=== PATIENT | female | born 1950 | race African-American/Black ===

== ENCOUNTER 2019-07-28 13:37 | Outpatient (CLI) | payer MEDICARE, MEDICAID, SELFPAY ==
--- NOTE | ~2019-07-28 | CT_ITS ---
EXAMINATION: CT lung screening DATE: 07/28/2019 14:20 INDICATION: Tobacco dependence TECHNIQUE: Computed tomography (CT) of the chest was performed without intravenous contrast. The dose -length product was 57.75 mGy-cm. Automated exposure control and iterative reconstruction technique w ere employed. COMPARISON: None FINDINGS: There is mild atherosclerosis and ectasia of the ascending thoracic aorta measuring 3.6 cm AP dimension. There is atherosclerosis of the coronary arteries. Heart size is normal. No significant pleural or pericardial effusion. No thoracic lymphadenopathy. Thyroid gland is unremarkable. Mild em physema. There is a groundglass nodule of the right lower lobe measuring 1.3 x 1.4 x 0.6 cm. There is a 4 mm right upper lobe nodule, image 26. There is a groundglass nodule in the right upper lobe italo uring 4 mm, image 39. There is a 3 mm right upper lobe nodule, image 39. There is a 4 mm groundglass nodule in the superior segment right lower lobe, image 48. There is a 5 mm right middle lobe nodule, image 69. There is right middle lobe atelectasis/scarring. There are multiple small subcentimeter macey undglass nodules in the left upper lobe, largest measuring approximately 6 mm, image 15. There is a 3 mm left lower lobe nodule, image 76. There is a 3 mm left lower lobe nodule, image 80. IMPRESSION: 1. Lung-RADS category 2: Benign appearance or behavior. Continue annual screening with noncontrast lo w-dose chest CT in 12 months. Reviewed, dictated and finalized at location A. IMPRESSION: 1. Lung-RADS category 2: Benign appearance or behavior. Continue annual screeni ng with noncontrast low-dose chest CT in 12 months.
--- NOTE | ~2019-07-28 | MM_ITS ---
EXAMINATION: MM screening bella BI w zaida HISTORY: Screening mammogram TECHNIQUE: Craniocaudal and mediolateral oblique 3-D tomosynthesis images were obtained and synthetic 2-D images were generated. CAD analysis was submitted and interpreted. COMPARISON: 03/19/2017 bilateral digital screening mammogram history verification and 1 is a 143 0 BREAST PARENCHYMAL COMPOSITION: FINDINGS: Scattered benign-appearing calcifications are present. There are multiple low-density circu mscribed opacities on the right. There is an asymmetric density in the deep posterior right breast on cranial caudal and mediolateral oblique views. Diagnostic right mammogram is recommended, with ultra sound as well. Otherwise there is no evidence of suspicious mass, calcification, or architectural distortion to sugg est malignancy in either breast. Occasional bilateral benign calcifications. There has been no other suspicious interval change. IMPRESSION: 1. Right breast masses suggested 2. Diagnostic right mammogram and right breast ultrasound examination are recommended. BI-RADS Category 0: Incomplete: Needs additional imaging evaluation. Reviewed, dictated and finalized at location A. IMPRESSION: 1. Right breast masses suggested 2. Diagnostic right mammogram and right breast ultrasound examination are recom mended. BI-RADS Category 0: Incomplete: Needs additional imaging evaluation.
== END 2019-07-28 13:38 | disposition home or self-care (01) ==
PROVIDERS: PCP Emergency Medicine; Visit Provider Emergency Medicine
DX: Z12.31 Encounter for screening mammogram for malignant neoplasm of breast (principal); Z12.2 Encounter for screening for malignant neoplasm of respiratory organs; Z87.891 Personal history of nicotine dependence; R92.8 Other abnormal and inconclusive findings on diagnostic imaging of breast
CPT/HCPCS: 77063; 77067; G0297

== ENCOUNTER 2019-12-23 12:18 | Outpatient (CLI) | payer MEDICARE, MEDICAID, SELFPAY ==
--- NOTE | ~2019-12-23 | MMUS_ITS ---
EXAMINATION: MM diagnostic bella RT w zaida, US breast RT limited HISTORY: Multiple right breast masses reported on 07/28/2019 bilateral digital screening mammogram. Di agnostic right mammogram and right breast ultrasound examination were recommended. TECHNIQUE: Full field and spot 3-D tomosynthesis images of the right breast were performed and synthe tic 2-D images were generated. Rolled medial and rolled lateral craniocaudal views. CAD analysis was submitted and interpreted. High resolution upper inner and upper outer right breast ultrasound was pe rformed. COMPARISON: 07/28/2019 bilateral digital screening mammogram 03/19/2017 bilateral digital screening mammogram 06/25/2013 diagnostic right digital mammogram and right breast ultrasound BREAST PARENCHYMAL COMPOSITION: There are scattered areas of fibroglandular density. FINDINGS: MAMMOGRAPHIC FINDINGS: There is a stable circumscribed approximately 4 x 7 mm opacity in the posterior aspect of the right b reast at approximately 6:00 position, unchanged since 06/25/2013, consistent with benign process. There is asymmetric density in the mid upper right breast. Ultrasound examination was performed at e upper inner and upper outer quadrants for correlation. Occasional benign calcifications. ULTRASOUND: No suspicious mass, suspicious shadowing or suspicious vascularity is identified. IMPRESSION: 1. No mammographic evidence of malignancy 2. Routine mammographic screening is recommended. BI-RADS Category 2: Benign finding(s). Reviewed, dictated and finalized at location A. IMPRESSION: 1. No mammographic evidence of malignancy 2. Routine mammographic screening is recommended. BI-RADS Category 2: Benign finding(s).
--- NOTE | ~2019-12-23 | DEXA_ITS ---
Bone Density Report Name: Lakisha Dillard Age: 69 Sex: Female Ethnicity: Black Date of : 1950 Indication: postmenopausal osteoporosis; monitoring treatment; hysterectomy; Referring Provider: Roddy Josue Study: Bone densitometry was performed. Exam Date: December 23, 2019 Accession number: [id number] Bone Density: Region BMD T-score Z-score Classification AP Spine (L1-L4) 0.802 -2.2 -0.8 Osteopenia Femoral Neck (Left) 0.641 -1.9 -0.7 Osteopenia Total Hip (Left) 0.681 -2.1 -1.1 Osteopenia Total Hip Bilateral Avg 0.708 -1.9 -0.9 Osteopenia Femoral Neck (Right) 0.657 -1.7 -0.6 Osteopenia Total Hip (Right) 0.734 -1.7 -0.7 Osteopenia World Health Organization criteria for BMD impression classify patients as: Normal (T-score at or above -1.0), Osteopenia (T-score between -1.0 and -2.5), or Osteoporosis (T-score at or below -2.5). 10-year Fracture Risk: FRAX not reported because: Treated for osteoporosis Previous Exams: Region Exam Age BMD T-score BMD Change BMD Change Date g/cm2 vs Baseline vs Previous AP Spine(L1-L4) 12/23/2019 69 0.802 -2.2 0.066(8.9%)* 0.066(8.9%)* 03/19/2017 66 0.736 -2.8 Total Hip(Left) 12/23/2019 69 0.681 -2.1 0.027(4.1%) 0.027(4.1%) 03/19/2017 66 0.654 -2.4 Total Hip(Right) 12/23/2019 69 0.734 -1.7 0.025(3.5%) 0.025(3.5%) 03/19/2017 66 0.709 -1.9 *Denotes significance at 95% confidence level, LSC for AP Spine = 0.022 g/cm2, LSC for Total Hip = 0.027 g/cm2 Clinical Information Provided by Patient: Smokes Is being treated for osteoporosis Has used the following medications: Fosamax (i.e. alendronate), Vitamin D, Calcium Has the following medical conditions: Hysterectomy Patient maximum height was 61 Menopause Age: 36 No regular weight bearing exercise Does not regularly consume dairy products Drinks caffeinated beverages Onset of menses at age 12 Number of children 3 Impression: The patient has low bone mass, based on the Total Spine T-score. The patient has risk factors, including: smoking. No significant bone loss was observed. Discussion: PATIENT UNDER TREATMENT WITH NO SIGNIFICANT BMD LOSS SINCE LAST EXAM. In an untreated patient, BMD typically declines with age. A lack of decline or gain is usually a sign that treatment is efficacious and fracture risk is reduced. It is important to ask patients whether they are taking their medications and to encourage continued and appropriate complia
== END 2019-12-23 12:19 | disposition home or self-care (01) ==
PROVIDERS: PCP Emergency Medicine; Visit Provider Emergency Medicine
DX: R92.8 Other abnormal and inconclusive findings on diagnostic imaging of breast (principal); M81.0 Age-related osteoporosis without current pathological fracture; E55.9 Vitamin D deficiency, unspecified; N18.9 Chronic kidney disease, unspecified; M85.88 Other specified disorders of bone density and structure, other site
CPT/HCPCS: 76642; 77061; 77065; 77080; G0279

== ENCOUNTER 2020-04-17 12:58 | Outpatient (CLI) | payer MEDICARE, MEDICAID, SELFPAY ==
--- NOTE | ~2020-04-17 | XR_ITS ---
EXAMINATION:XR cervical spine 4-5V DATE: 04/17/2020 13:15 INDICATION: Nontraumatic neck pain TECHNIQUE: AP, lateral, lateral swimmers and odontoid views of the cervical spine are provided. COMPARISON: None FINDINGS: Straightening of the normal cervical lordosis. Odontoid is intact. Normal atlantoaxial interval. Tk tebral body heights are normal. Severe disc height loss at C3-C4, C5-C6 and moderate disc height loss at C2-C3, C4-C5 and C6-C7. Multilevel moderate bilateral facet osteoarthritis and moderate to severe bilateral uncovertebral osteoarthritis. Prevertebral soft tissues are normal. Visualized apices of t he lungs are clear. IMPRESSION: 1. Moderate to severe cervical spondylosis. Reviewed, dictated and finalized at location B. [employer]
== END 2020-04-17 12:59 | disposition home or self-care (01) ==
PROVIDERS: PCP Emergency Medicine; Visit Provider Emergency Medicine
DX: M47.892 Other spondylosis, cervical region (principal)
CPT/HCPCS: 72050

== ENCOUNTER 2020-11-10 09:02 | Inpatient (IN) | payer MEDICARE, BC, SELFPAY ==
[2020-11-10] VITALS (9 sets, daily range): BP systolic 128–157; BP diastolic 78–84; PULSE 70–88; RESP 16–20; TEMP 36.1–36.8; O2SAT 16–100; BMI 24.8
--- NOTE | ~2020-11-10 | CT_ITS ---
EXAMINATION: CT abdomen pelvis w con DATE: 11/10/2020 13:03 INDICATION: Abdominal distention. Abdominal pain. TECHNIQUE: Computed tomography (CT) of the abdomen and pelvis was performed with 100 mL Omnipaque 350 intravenous contrast. Automated exposure control and iterative reconstruction technique were employe d. The dose-length product was 211.43 mGy-cm. COMPARISON: Chest CT 07/28/2019 FINDINGS: The visualized portions of the lung bases demonstrate mild atelectasis. No pleural effusion . The heart size is normal. No pericardial effusion. The liver is normal. The gallbladder is absent. The common duct is dilated to 12 mm, likely not clinically significant given the normal liver functio n tests. The spleen and pancreas are normal. There are masses in the adrenal glands measuring up to 2 .2 cm on the right measuring soft tissue attenuation without change in size, likely adenomas. There i s cortical thinning of the kidneys. There is a 2.6 cm cyst in right kidney. There are changes of ileo colic anastomosis. There is wall thickening of multiple loops of small bowel and sigmoid colon that a re in close proximity in the lower abdomen with fat stranding, consistent with inflammation. This inf lammation abuts the vagina. A 2.5 x 1.8 x 1.1 cm fluid collection between these bowel loops may be ex traluminal. There is mild mesenteric lymphadenopathy, likely reactive. There is no free intraperitone al fluid. There is mild lumbar spondylosis. IMPRESSION: 1. Inflammation of closely spaced loops of small bowel and of the sigmoid colon, consistent with Croh n disease. A 2.5 x 1.8 x 1.1 cm fluid collection in this area may be extraluminal and is suspicious f or abscess. The bowel inflammation abuts the vagina suspicious for enterovaginal fistula. 2. Mild mesenteric lymphadenopathy, likely reactive. Reviewed, dictated and finalized at location A. IMPRESSION: 1. Inflammation of closely spaced loops of small bowel and of the sigmoid colon , consistent with Crohn disease. A 2.5 x 1.8 x 1.1 cm fluid collection in this area may be extraluminal and is suspicious for abscess. The bowel inflammation abuts the vagina suspicious for enterovaginal fistula. 2. Mild mesenteric lymphadenopathy, likely reactive.
[2020-11-10 09:57] LABS: Basophils Percent Auto 0.3 % (0.2-1.2); Eosinophils Percent Auto 0.5 % (0-4.4); Hematocrit 35.7 % (37.0-47.0); Hemoglobin 11.2 g/dL (12.0-15.0); Immature Granulocyte Absolute 0.01 K/mm3 (0.00-0.031); Immature Granulocyte Percent A 0.1 % (0-0.5); Lymphocytes Absolute Auto 1.29 K/mm3 (0.9-3.2); Lymphocytes Percent Auto 17.7 % (18.3-44.2); Mean Corpuscular HGB Conc 31.4 g/dl (32-36); Mean Corpuscular Hemoglobin 29.6 pg (26-34); Mean Corpuscular Volume 94.2 fl (80-100); Mean Platelet Volume 9.9 fl (7.4-10.4); Monocytes Absolute Auto 0.4 K/mm3 (0.1-0.6); Monocytes Percent Auto 4.9 % (2.6-8.5); Neutrophils Absolute Auto 5.6 K/mm3 (1.3-6.7); Neutrophils Percent Auto 76.5 % (45.5-73.1); Platelet Count Result 316 k/mm3 (150-375); Red Blood Count 3.79 M/mm3 (4.2-5.4); White Blood Count 7.3 K/mm3 (4.5-10.0)
--- NOTE | 2020-11-10 10:03 | ED.ABDPAIN ---
HPI - Abdominal Pain General Chief Complaint: Abdominal Pain Stated Complaint: sent by Dr. Josue, swelling and pain in lower abd Time Seen by Provider: 11/10/20 09:17 History of Present Illness HPI narrative: Patient is a 70-year-old female who presents ER with abdominal distention and diarrhea. Ongoing for the last week. Has history of Crohn's disease. No blood in her stool. No nausea or vomiting or fevers or chills. Currently does not have a GI physician that she is following with. She is on no suppressive medication. Patient denies vaginal discharge or fetid odor. No abnormal bleeding. Related Data Allergies Allergy/AdvReac Type Severity Reaction Status Date / Time Penicillins Allergy Mild ITCH Verified 11/10/20 09:24 Review of Systems Review of Systems: All systems reviewed & are unremarkable except as noted in HPI and below Constitutional: Constitutional: Denies chills, Denies fever(s) and Denies weakness Gastrointestinal: Gastrointestinal: Reports abdominal pain, Reports bloating, Reports diarrhea, Denies nausea and Denies vomiting Genitourinary: Genitourinary: Denies abnormal vaginal bleeding, Denies nocturia, Denies dysuria, Denies flank pain and Denies vaginal discharge PMFSH Past Medical History Medical History (Updated 11/10/20 @ 14:10 by Marlon Maddox MD) Crohn's disease GERD (gastroesophageal reflux disease) Osteoporosis Surgical History Surgical History (Updated 11/10/20 @ 14:07 by Marlon Maddox MD) History of colonoscopy History of hysterectomy Social History Social History (Updated 11/10/20 @ 14:07 by Marlon Maddox MD) Smoking status: Current every day smoker Exam Narrative: Exam Narrative: GENERAL: Well-appearing, well-nourished, and in no acute distress. HEAD: Normocephalic, atraumatic. ENT: Mucous membranes moist. CHEST: Clear to auscultation. No respiratory distress. HEART: Regular rate and rhythm. Normal peripheral pulses. ABDOMEN: Soft, nontender, mildly distended. EXTREMITIES: Normal range of motion. No edema. SKIN: Warm, dry, no rash. NEURO: Alert and oriented x3. PSYCH: Normal mood and affect. Course Course Emergency Course: Patient informed of results. Dr. Gu with GI consulted and Dr. Hanson with general surgery consulted. IV antibiotics started. Admit to hospitalist service. Vital Signs Vital signs: Vital Signs Temperature 98.3 F 11/10/20 09:18 Pulse Rate 87 11/10/20 09:18 Respiratory Rate 16 11/10/20 09:18 Blood Pressure 134/82 11/10/20 09:18 Pulse Oximetry 99 11/10/20 09:18 Temperature 98.3 F 11/10/20 09:18 Pulse Rate 87 11/10/20 09:18 Respiratory Rate 16 11/10/20 09:18 Blood Pressure 134/82 11/10/20 09:18 Pulse Oximetry 99 11/10/20 09:18 MDM - Abdominal Pain Lab Data Result diagrams: 11/10/20 09:41 11/10/20 10:26 Labs: Lab Results 11/10/20 11/10/20 Range/Units 09:41 10:26 WBC 7.3 (4.5-10.0) K/mm3 RBC 3.79 L (4.2-5.4) M/mm3 Hgb 11.2 L (12.0-15.0) g/dL Hct 35.7 L (37.0-47.0) % MCV 94.2 (80-100) fl MCH 29.6 (26-34) pg MCHC 31.4 L (32-36) g/dl RDW 13.0 (11.5-14.5) % Plt Count 316 (150-375) k/mm3 MPV 9.9 (7.4-10.4) fl Immature Gran % (Auto) 0.1 (0-0.5) % Neut % (Auto) 76.5 H (45.5-73.1) % Lymph % (Auto) 17.7 L (18.3-44.2) % [place] % (Auto) 4.9 (2.6-8.5) % Eos % (Auto) 0.5 (0-4.4) % Baso % (Auto) 0.3 (0.2-1.2) % Lymph # (Auto) 1.29 (0.9-3.2) K/mm3 [place] # (Auto) 0.4 (0.1-0.6) K/mm3 Eos # (Auto) 0.0 (0-0.3) K/mm3 Baso # (Auto) 0.0 (0.0-0.1) K/mm3 Abs Immat Gran (auto) 0.01 (0.00-0.031) K/mm3 Absolute Neuts (auto) 5.6 (1.3-6.7) K/mm3 Absolute Nucleated RBC 0.0 (0.0-0.012) K/mm3 Nucleated RBC % 0.0 (0.0-0.2) % Sodium 142 (137-145) mmol/L Potassium 3.1 L (3.4-5.0) mmol/L Chloride 110 H (98-107) mmol/L Carbon Dioxide 24 (22-30) mmol/L Anion Gap 8 (8-1
[2020-11-10 12:45] LABS: Alanine Aminotransferase 8 U/L (4-35); Albumin Level 3.8 g/dL (3.5-5.1); Alkaline Phosphatase 82 U/L (38-126); Anion Gap 8 mmol/L (8-16); Aspartate Amino Transferase 22 U/L (14-36); Bilirubin,Total 0.5 mg/dL (0.2-1.3); Blood Urea Nitrogen 11 mg/dL (7-17); Calcium 9.2 mg/dL (8.4-10.2); Carbon Dioxide 24 mmol/L (22-30); Chloride 110 mmol/L (98-107); Estimated CRCL calculation 47 ml/min; Estimated Glomerular Filt Rate > 60; Glucose 82 mg/dL (65-105); Lipase 77 U/L (23-300); Potassium 3.1 mmol/L (3.4-5.0); Sodium 142 mmol/L (137-145)
--- NOTE | 2020-11-10 13:47 | WPDGICN ---
Assessment and Plan Assessment and plan (1) Intra-abdominal abscess: Code(s): K65.1 - Peritoneal abscess Status: Acute Assessment and Plan: I have reviewed the CT scan and there is indeed a small fluid collection suspicious for abscess. I specifically asked her if she has had any vaginal discharge or any pneumaturia, and she denies either. (2) Exacerbation of Crohn's disease: Code(s): K50.90 - Crohn's disease, unspecified, without complications Status: Acute Assessment and Plan: I told the patient that we would need to start her on antibiotics and eventually on medications specifically for Crohn's disease. She is going to contact her family to see if they can determine from her records at home what medication she had been on that was discontinued. (3) Chronic diarrhea: Code(s): K52.9 - Noninfective gastroenteritis and colitis, unspecified Status: Acute Assessment and Plan: This likely due to her Crohn's disease and apparently never was well controlled when on medication. She could be on a clear liquid diet as she has no obstructive symptoms at this time GI Consult Note Consult date/time: 11/10/20 13:47 HPI: Lakisha Schwarz is a 70 year old female who presents to the emergency room today on the insistence of her primary care physician. She had seen him on Friday for regularly scheduled visit. He felt her abdomen and thought that she should see somebody soon about her Crohn's disease. She had been under the care of Dr. Weiner in [place]. She had been taking a medication that was started when she was diagnosed 4 years ago. The medication name she cannot recall but she was taking 4 times a day. Interestingly, her primary care physician decided to wean her off of it and therefore she has not been on any medication for many months. Even when she was on meds, her stools were loose. She denies she has lost quite a bit of weight but gained some back after starting medication. She has never required steroids. She had colonoscopy about 2 years ago and was told she had polyps. Her appetite has been good lately. She has had no vomiting. She is uncomfortable in the upper abdomen lately and may her physician aware that on Friday. She he has had no fever. CT today shows: 1. Inflammation of closely spaced loops of small bowel and of the sigmoid colon, consistent with Crohn disease. A 2.5 x 1.8 x 1.1 cm fluid collection in this area may be extraluminal and is suspicious for abscess. The bowel inflammation abuts the vagina suspicious for enterovaginal fistula. 2. Mild mesenteric lymphadenopathy, likely reactive. Review of Systems Review of Systems: All systems reviewed & are unremarkable except as noted in HPI and below PMFSH Past Medical History Medical History Crohn's disease GERD (gastroesophageal reflux disease) Osteoporosis Surgical History Surgical History History of colonoscopy History of hysterectomy Social History Social History Smoking status: Current every day smoker Meds Home Medications and Allergies Allergies Allergy/AdvReac Type Severity Reaction Status Date / Time Penicillins Allergy Mild ITCH Verified 11/10/20 09:24 Vital Signs Vital Signs - 24 hr 11/10/20 09:18 Temperature 36.8 C Pulse Rate 87 Respiratory Rate 16 Blood Pressure 134/82 Pulse Oximetry 99 Exam Const: General: cooperative and alert Nutritional Appearance: average body habitus Resp: Auscultation: clear to auscultation bilaterally Cardio: Rhythm: regular rhythm GI: Inspection: scar ( long midline scar and smaller vertical scar in right upper quadrant) GI Palp: Yes Tenderness to palpation present (GI) ( mild diffuse tenderness in upper abdomen and left lower quadrant) and No Hepatosplenomegal
[2020-11-10 15:27] LABS: Add Urine Microscopic? NO; Appearance Urine Clear (Clear); Bilirubin Urine Negative (Negative); Blood Urine Negative (Negative); Color Urine Yellow (Yellow); Glucose Urine UA Negative (Negative); Ketones Urine Negative (Negative); Leukocyte Esterase Ur Negative LEU/UL (Negative); Mucus Urine Rare /lpf; Nitrate Urine Negative (Negative); Protein Urine Negative (Negative); Squamous Epithelial Cell Urine Moderate /hpf (Few); Urobilinogen Urine Negative mg/dL (<2.0); WBC Urine 0-3 /hpf
[2020-11-10 15:44] LABS: Specific Grav Ur 1.005 (1.001-1.035)
--- NOTE | 2020-11-10 16:57 | PM.CNGS ---
Assessment and Plan Assessment and plan (1) Intra-abdominal abscess: Code(s): K65.1 - Peritoneal abscess Status: Acute Assessment and Plan: I have reviewed the CT and discussed the findings with the patient. She has what appears to be of possible small abscess near the area of several loops of inflamed small bowel and her sigmoid colon. This likely represents Crohn's disease with abscess. This appears small at this time and antibiotic treatment will hopefully allow this to resolve. If the abscess is becoming larger or is refractory to antibiotics, she may require percutaneous drainage or surgical procedure. Will continue to follow along the patient. (2) Exacerbation of Crohn's disease: Qualifiers: Digestive disease complication type: with abscess Qualified Code(s): K50.914 - Crohn's disease, unspecified, with abscess Code(s): K50.90 - Crohn's disease, unspecified, without complications Status: Acute History of Present Illness Consult details Consult date: 11/10/20 Reason for consult: other (Intraabdominal abscess) Requesting physician: Marlon Maddox MD Narrative: This is a 70-year-old woman who presented to the emergency department with complaints abdominal pain and diarrhea. She has been having progressively worsening bloating and diarrhea over the past 6 months. She states that she was diagnosed with Crohn's disease about 4 years ago and was on a medication for this for a couple years, but this was stopped by her PCP 2 years ago. She had a CT done today which showed evidence abscess between loops of small bowel and sigmoid colon. She has been admitted for further treatment. She currently only complains of minimal abdominal pain and denies any nausea or vomiting. She has had multiple previous open abdominal surgeries and she states that the last surgeon that operated on her told her that she would be high risk for any future abdominal surgeries. Review of Systems Review of Systems: All systems reviewed & are unremarkable except as noted in HPI and below Constitutional: Constitutional: Denies chills and Denies fever(s) Eyes: Eyes: Denies change in vision ENT: Denies hearing loss, Denies neck pain and Denies sore throat Cardiovascular: Cardiovascular: Denies chest pain and Denies dyspnea Respiratory: Respiratory: Denies cough, Denies dyspnea and Denies wheezing Gastrointestinal: Gastrointestinal: Reports as per HPI Genitourinary: Genitourinary: Denies hematuria and Denies dysuria Musculoskeletal: Musculoskeletal: Denies arthralgias, Denies joint swelling and Denies neck pain Allergic/Immunologic: Allergic/Immunologic: Denies wheezing [facility] Past Medical History Medical History Crohn's disease GERD (gastroesophageal reflux disease) Osteoporosis Surgical History Surgical History History of bowel resection History of colonoscopy History of hysterectomy Hx of cholecystectomy Family History Family History (Updated 11/10/20 @ 17:02 by Neftaly Hanson DO) Other No pertinent family history Social History Social History Smoking status: Current every day smoker Meds Home Medications and Allergies Allergies Allergy/AdvReac Type Severity Reaction Status Date / Time Penicillins Allergy Mild ITCH Verified 11/10/20 09:24 Vital Signs Vital Signs - 24 hr 11/10/20 09:18 Temperature 36.8 C Pulse Rate 87 Respiratory Rate 16 Blood Pressure 134/82 Pulse Oximetry 99 Exam Const: General: alert; No acute distress Orientation/consciousness: patient oriented x3 Limitations: no limitations HENMT: Head: normocephalic and atraumatic Ears: hearing grossly normal bilaterally General nose exam: Normal external nose present and Normal nares present Mouth: Yes Normal oral and palata
[2020-11-10] MEDS: metroNIDAZOLE 500 MG/ISO 100ML 500 MG/100 ML BAG 100 MG IVPB ×2 (17:24→23:35)
--- NOTE | 2020-11-10 17:44 | ADMGEN ---
This patient, Lakisha Schwarz, was admitted to Medical Room 249-01. Patient/family oriented to hospital policies and general routines including ID bracelet, bed and alarms, visiting hours, pain management, procedures, bathroom and other care routines, personal items, smoking policy, room service/diet, and visiting hours. Information on how to activate the Rapid Response Team has been discussed. Patient/Family are encouraged to report perceived risks to care and to ask questions if they do not understand what they are told or what they should do.
[2020-11-10] MEDS: MELATONIN 5 MG TABLET PO (21:27)
--- NOTE | 2020-11-10 22:00 | PM.IMHP ---
H&P: HPI History of Present Illness Date/Time: 11/10/20 22:00 Chief Complaint: Abdominal distension. Narrative: This is a very pleasant 70-year-old female with Crohn's disease who presented to the emergency department earlier today for evaluation of abdominal distension at the urging of her primary care provider. She has had Crohn's disease for many years but has been off of her medication for a couple of years and has been maintaining well with symptomatic treatment including anti motility agents and H2 antagonists as needed. In fact she is no longer seeing a picture frame maker and is just being managed by her primary care provider. At a routine checkup this past Friday her primary care provider was concerned that her abdomen was more distended than usual and he encouraged her to come to the emergency department although she did not feel any worse than usual and did not come until today. CT of the abdomen and pelvis showed inflammation associated with Crohn's disease and a fluid collection suspicious for abscess and she is being admitted in this setting. At the time my evaluation she has minimal discomfort and mainly has some mild cramping in the lower abdomen, more so on the left. She has not had any fever, chills, sweats, nausea, or vomiting. She had a small loose stool earlier today and that is pretty typical for her. No blood or mucus in the stool. The only complaint she has at the time my evaluation is that of not being able to eat as she is currently on a liquid diet. Review of Systems Review of Systems: Narrative: Twelve systems were reviewed with pertinent positives and negatives as per HPI. No recent cold or flu symptoms. She denies exposure to those positive for COVID-19. No vaginal discharge. Weight has remained stable. Except as documented, all other systems were reviewed and are negative. [facility] Past Medical History Medical History (Updated 11/10/20 @ 23:01 by Kia Leigh PA-C) Crohn's disease Gastroesophageal reflux disease Osteoporosis Surgical History Surgical History (Updated 11/10/20 @ 23:01 by Kia Leigh PA-C) History of appendectomy History of bowel resection History of cholecystectomy History of colonoscopy History of hysterectomy History of ventral hernia repair Family History Family History Other No pertinent family history Social History Social History (Updated 11/10/20 @ 23:01 by Kia Leigh PA-C) Social History: The patient lives in [place] with her daughter. She smokes perhaps 3 cigarettes a day. No alcohol or illicit substance abuse. She designates her daughter, Chloe Rodriguez, as her surrogate decision maker. Code status: Full code. Meds Home Medications and Allergies Home Medications Medication Instructions Recorded Confirmed Type alendronate 70 mg PO WEEKLY 11/10/20 11/10/20 History famotidine [Pepcid] 20 mg PO BID 11/10/20 11/10/20 History melatonin 3 mg PO HS PRN 11/10/20 11/10/20 History Allergies Allergy/AdvReac Type Severity Reaction Status Date / Time Penicillins Allergy Mild ITCH Verified 11/10/20 17:39 Vital Signs Vital Signs - 24 hr 11/10/20 09:18 11/10/20 11:30 11/10/20 12:30 Temperature 98.3 F Pulse Rate 87 82 80 Respiratory Rate 16 16 18 Blood Pressure 134/82 128/80 132/78 Pulse Oximetry 99 99 98 11/10/20 13:30 11/10/20 14:30 11/10/20 15:30 Temperature Pulse Rate 80 78 88 Respiratory Rate 18 16 18 Blood Pressure 136/78 130/78 140/80 Pulse Oximetry 98 98 99 11/10/20 16:00 11/10/20 17:24 11/10/20 20:48 Temperature 98.3 F 97.0 F L 97.4 F L Pulse Rate 88 73 70 Respiratory Rate 20 16 16 Blood Pressure 134/82 142/84 H 157/84 H Pulse Oximetry 16 L 100 100 Exam Narrative: Exam Narrative: General: Well-developed elderly female sitting up in bed in no distress. Weight: 59.6 kg. BMI: 24.8. HEENT: Wearing glasses. PERRL, EOMI. Sclerae a
[2020-11-11 05:52] LABS: Alanine Aminotransferase 8 U/L (4-35); Albumin Level 4.1 g/dL (3.5-5.1); Alkaline Phosphatase 93 U/L (38-126); Anion Gap 9 mmol/L (8-16); Aspartate Amino Transferase 24 U/L (14-36); Bilirubin,Total 0.4 mg/dL (0.2-1.3); Blood Urea Nitrogen 8 mg/dL (7-17); Calcium 9.3 mg/dL (8.4-10.2); Carbon Dioxide 25 mmol/L (22-30); Chloride 107 mmol/L (98-107); Estimated CRCL calculation 47 ml/min; Estimated Glomerular Filt Rate > 60; Glucose 79 mg/dL (65-105); Magnesium 1.6 mg/dL (1.6-2.3); Potassium 3.3 mmol/L (3.4-5.0); Sodium 141 mmol/L (137-145)
[2020-11-11 06:00] VITALS: BP 126/72; PULSE 69; RESP 16; TEMP 36.1; O2SAT 100
[2020-11-11] MEDS: metroNIDAZOLE 500 MG/ISO 100ML 500 MG/100 ML BAG 100 MG IVPB ×3 (06:15→21:20)
--- NOTE | 2020-11-11 10:06 | WPDGIPROGNO ---
Progress Note: A&P Assessment and Plan (1) Exacerbation of Crohn's disease: Qualifiers: Digestive disease complication type: with abscess Qualified Code(s): K50.914 - Crohn's disease, unspecified, with abscess Code(s): K50.90 - Crohn's disease, unspecified, without complications Status: Acute Assessment and Plan: I told the patient that we would need to start her on antibiotics and eventually on medications specifically for Crohn's disease. She is going to contact her family to see if they can determine from her records at home what medication she had been on that was discontinued. Today I will begin IV steroids. I told patient that at discharge we will have her on antibiotics as well as medication for Crohn's disease. Sometime in the near future we will perform colonoscopy to determine how active her disease is and also the extent. I would rather not do it now although for fear of exacerbating the inflammatory mass, possible abscess. I am going to advance her diet. (2) Chronic diarrhea: Code(s): K52.9 - Noninfective gastroenteritis and colitis, unspecified Status: Acute Assessment and Plan: Again, this is more likely than not due to her Crohn's disease. Unfortunately she states that diarrhea was never controlled, even when she was on the unknown medication for Crohn's disease. we are awaiting fecal calprotectin. Hopefully that has been obtained. (3) Anemia: Code(s): D64.9 - Anemia, unspecified Status: Acute Assessment and Plan: this is normal sitting normochromic, therefore likely due to chronic illness. I will check iron studies Subjective Date/time seen: 11/11/20 10:07 she feels well. Denies nausea or any significant abdominal pain. She is still having quite a bit of diarrhea. She still denies pneumaturia or vaginal discharge either which would suggest fistula from the abscess seen on CT. Review of Systems Review of Systems: All systems reviewed & are unremarkable except as noted in HPI and below Exam Const: General: cooperative and alert Nutritional Appearance: average body habitus Resp: Auscultation: clear to auscultation bilaterally Cardio: Rhythm: regular rhythm GI: Inspection: scar ( long midline scar and smaller vertical scar in right upper quadrant) Auscultation: normal bowel sounds Objective Data Vital Signs Vital Signs: Vital Signs - 24 hr 11/10/20 11:30 11/10/20 12:30 11/10/20 13:30 Temperature Pulse Rate 82 80 80 Respiratory Rate 16 18 18 Blood Pressure 128/80 132/78 136/78 Pulse Oximetry 99 98 98 11/10/20 14:30 11/10/20 15:30 11/10/20 16:00 Temperature 36.8 C Pulse Rate 78 88 88 Respiratory Rate 16 18 20 Blood Pressure 130/78 140/80 134/82 Pulse Oximetry 98 99 16 L 11/10/20 17:24 11/10/20 20:48 11/11/20 06:00 Temperature 36.1 C L 36.3 C L 36.1 C L Pulse Rate 73 70 69 Respiratory Rate 16 16 16 Blood Pressure 142/84 H 157/84 H 126/72 Pulse Oximetry 100 100 100 Intake/Output Intake/Output: Intake & Output 11/08/20 11/09/20 11/10/20 11/11/20 23:59 23:59 23:59 23:59 Intake Total 650 350 Output Total 250 Balance 650 100 Meds/Results Medications: Active Medications Generic Name Dose Route Start Last Admin Trade Name Freq PRN Reason Stop Dose Admin Acetaminophen 650 mg 11/10/20 14:10 Acetaminophen 325 Mg Tablet PO Q4H PRN Mild Pain (1-3) or Fever Hydrocodone Bitart/Acetaminophen 1 tab 11/10/20 14:10 Hydrocodone/Acetaminophen (*Crx) 5-325 Mg Tablet PO Q4H PRN Pain Rated 4-6 Famotidine 20 mg 11/11/20 09:00 Famotidine 20 Mg Tablet PO Q12HR ANAIS Levofloxacin/Dextrose 750 mg in 150 mls @ 100 mls/hr 11/12/20 15:00 Levaquin 750 Mg/D5w 150 Ml IVPB Q24H ANAIS Metronidazole 500 mg in 100 mls @ 100 mls/hr 11/10/20 23:00 11/11/20 07:15 Flagyl 500 Mg/Iso Soln 100 Ml IVPB Infused Q6HR ANAIS Infusion Melatonin 5 mg 11/10
[2020-11-11] MEDS: POTASSIUM CHLORIDE 20 MEQ TABLET 40 MEQ PO (10:17)
[2020-11-11] MEDS: FAMOTIDINE 20 MG TABLET PO ×2 (10:17→21:21)
[2020-11-11 11:38] LABS: Iron 29 ug/dL (37-170)
[2020-11-11 11:47] LABS: Percent Iron Saturation 11 % (20-50)
[2020-11-11] MEDS: methylPREDNISolone SOD SUCC 40 MG VIAL IV PUSH ×2 (11:56→21:21)
[2020-11-11 14:00] VITALS: BP 130/72; PULSE 74; RESP 17; TEMP 36.6; O2SAT 98
--- NOTE | 2020-11-11 15:06 | PM.IMPN ---
Progress Note: A&P Assessment and Plan (1) Exacerbation of Crohn's disease: Qualifiers: Digestive disease complication type: with abscess Qualified Code(s): K50.914 - Crohn's disease, unspecified, with abscess Code(s): K50.90 - Crohn's disease, unspecified, without complications Status: Acute Assessment and Plan: patient's pain and diarrhea has improved -continue Solu-Medrol for Crohn's exacerbation -continue levofloxacin and Flagyl for abscess coverage -GI consulted, appreciate their recommendations - patient does not take any routine medications for this at home (2) Intra-abdominal abscess: Code(s): K65.1 - Peritoneal abscess Status: Acute Assessment and Plan: noted on CT - appreciate surgeries recommendations - continue IV antibiotics (3) Gastroesophageal reflux disease: Code(s): K21.9 - Gastro-esophageal reflux disease without esophagitis Status: Acute Assessment and Plan: continue Pepcid Time Spent With Patient Time with patient: 25 - 35 minutes Subjective Date/time seen: 11/11/20 15:06 Interval history: Pt is a very pleasant 70-year-old female here for Crohn's exacerbation with abscess. Patient was seen today and has no complaints. Pt denies nausea, vomiting, fevers, chills, constipation, diarrhea, abdominal bloating, chest pain, sob, or abdominal pain. Review of Systems Review of Systems: All systems reviewed & are unremarkable except as noted in HPI and below Exam Narrative: Exam Narrative: General: Well developed well nourished patient in NAD HEENT: normocephalic Neck: supple Neuro: Alert and oriented x4 CV:RRR Resp:CTA Abd: Soft, mildly distended. No pain to palpation. Positive bowel sounds Extremities: No swelling, erythema, or pain to palpation. Objective Data Vital Signs Vital Signs: Vital Signs - 24 hr 11/10/20 15:30 11/10/20 16:00 11/10/20 17:24 Temperature 98.3 F 97.0 F L Pulse Rate 88 88 73 Respiratory Rate 18 20 16 Blood Pressure 140/80 134/82 142/84 H Pulse Oximetry 99 16 L 100 11/10/20 20:48 11/11/20 06:00 Temperature 97.4 F L 97.0 F L Pulse Rate 70 69 Respiratory Rate 16 16 Blood Pressure 157/84 H 126/72 Pulse Oximetry 100 100 Intake/Output Intake/Output: Intake & Output 11/08/20 11/09/20 11/10/20 11/11/20 23:59 23:59 23:59 23:59 Intake Total 650 530 Output Total 250 Balance 650 280 Meds/Results Medications: Active Medications Generic Name Dose Route Start Last Admin Trade Name Freq PRN Reason Stop Dose Admin Acetaminophen 650 mg 11/10/20 14:10 Acetaminophen 325 Mg Tablet PO Q4H PRN Mild Pain (1-3) or Fever Hydrocodone Bitart/Acetaminophen 1 tab 11/10/20 14:10 Hydrocodone/Acetaminophen (*Crx) 5-325 Mg Tablet PO Q4H PRN Pain Rated 4-6 Famotidine 20 mg 11/11/20 09:00 11/11/20 10:17 Famotidine 20 Mg Tablet PO 20 mg Q12HR ANAIS Administration Levofloxacin/Dextrose 750 mg in 150 mls @ 100 mls/hr 11/12/20 15:00 Levaquin 750 Mg/D5w 150 Ml IVPB Q24H ANAIS Metronidazole 500 mg in 100 mls @ 100 mls/hr 11/10/20 23:00 11/11/20 11:56 Flagyl 500 Mg/Iso Soln 100 Ml IVPB 100 mls/hr Q6HR ANAIS Administration Melatonin 5 mg 11/10/20 21:10 11/10/20 21:27 Melatonin 5 Mg Tablet PO 5 mg HS ANAIS Administration Melatonin 3 mg 11/11/20 08:59 Melatonin 3 Mg Tablet PO HS PRN Insomnia Methylprednisolone Sodium Succinate 40 mg 11/11/20 09:45 11/11/20 11:56 Methylprednisolone Sod Succ 40 Mg Vial IV PUSH 40 mg Q6HR ANAIS Administration Morphine Sulfate 4 mg 11/10/20 14:10 Morphine Sulfate (*Crx) 4 Mg/Ml Inj IV PUSH Q2H PRN Pain Rated 7-10 Potassium Chloride 40 meq 11/11/20 17:00 Potassium Chloride 20 Meq Tablet.Er PO BIDWM ANAIS Promethazine HCl 12.5 mg 11/10/20 14:10 Promethazine Hcl 25 Mg/Ml Ampul IV PUSH Q6H PRN Nausea
--- NOTE | 2020-11-11 17:52 | PM.PNGS ---
Progress Note: A&P Assessment and Plan (1) Exacerbation of Crohn's disease: Qualifiers: Digestive disease complication type: with abscess Qualified Code(s): K50.914 - Crohn's disease, unspecified, with abscess Code(s): K50.90 - Crohn's disease, unspecified, without complications Status: Acute Assessment and Plan: Continuing to improve. On Levaquin and Flagyl, prednisone started today. Continue per GI recs. No surgical intervention needed at this time. Will follow as needed. (2) Intra-abdominal abscess: Code(s): K65.1 - Peritoneal abscess Status: Acute Subjective Subjective Date/Time Seen: 11/11/20 17:52 Interval history: Abdominal pain much improved. Tolerating diet. No fevers. Exam GI: Inspection: non-distended GI Palp: Yes Soft to palpation, No Tenderness to palpation present (GI) and No Guarding due to palpation present (GI) Auscultation: normal bowel sounds Objective Data Vital Signs Vital Signs: Vital Signs - 24 hr 11/10/20 20:48 11/11/20 06:00 11/11/20 14:00 Temperature 36.3 C L 36.1 C L 36.6 C Pulse Rate 70 69 74 Respiratory Rate 16 16 17 Blood Pressure 157/84 H 126/72 130/72 Pulse Oximetry 100 100 98 Intake/Output Intake/Output: Intake & Output 11/08/20 11/09/20 11/10/20 11/11/20 23:59 23:59 23:59 23:59 Intake Total 650 810 Output Total 250 Balance 650 560 Meds/Results Medications: Active Medications Generic Name Dose Route Start Last Admin Trade Name Freq PRN Reason Stop Dose Admin Acetaminophen 650 mg 11/10/20 14:10 Acetaminophen 325 Mg Tablet PO Q4H PRN Mild Pain (1-3) or Fever Hydrocodone Bitart/Acetaminophen 1 tab 11/10/20 14:10 Hydrocodone/Acetaminophen (*Crx) 5-325 Mg Tablet PO Q4H PRN Pain Rated 4-6 Famotidine 20 mg 11/11/20 09:00 11/11/20 10:17 Famotidine 20 Mg Tablet PO 20 mg Q12HR ANAIS Administration Levofloxacin/Dextrose 750 mg in 150 mls @ 100 mls/hr 11/12/20 15:00 Levaquin 750 Mg/D5w 150 Ml IVPB Q24H ANAIS Metronidazole 500 mg in 100 mls @ 100 mls/hr 11/10/20 23:00 11/11/20 12:55 Flagyl 500 Mg/Iso Soln 100 Ml IVPB Infused Q6HR ANAIS Infusion Melatonin 5 mg 11/10/20 21:10 11/10/20 21:27 Melatonin 5 Mg Tablet PO 5 mg HS ANAIS Administration Melatonin 3 mg 11/11/20 08:59 Melatonin 3 Mg Tablet PO HS PRN Insomnia Methylprednisolone Sodium Succinate 40 mg 11/11/20 09:45 11/11/20 11:56 Methylprednisolone Sod Succ 40 Mg Vial IV PUSH 40 mg Q6HR ANAIS Administration Morphine Sulfate 4 mg 11/10/20 14:10 Morphine Sulfate (*Crx) 4 Mg/Ml Inj IV PUSH Q2H PRN Pain Rated 7-10 Promethazine HCl 12.5 mg 11/10/20 14:10 Promethazine Hcl 25 Mg/Ml Ampul IV PUSH Q6H PRN Nausea Radiology Results: ITS Impressions Abdomen/Pelvis CT 11/10/20 13:04 IMPRESSION: 1. Inflammation of closely spaced loops of small bowel and of the sigmoid colon, consistent with Crohn disease. A 2.5 x 1.8 x 1.1 cm fluid collection in this area may be extraluminal and is suspicious for abscess. The bowel inflammation abuts the vagina suspicious for enterovaginal fistula. 2. Mild mesenteric lymphadenopathy, likely reactive. Labs Labs: Laboratory Results - last 24 hr 11/11/20 11/11/20 05:12 10:34 Sodium 141 Potassium 3.3 L Chloride 107 Carbon Dioxide 25 Anion Gap 9 BUN 8 Creatinine 0.70 Estim Creat Clear Calc 47 Estimated GFR > 60 Glucose 79 Calcium 9.3 Magnesium 1.6 Iron 29 L TIBC 271 % Saturation 11 L Total Bilirubin 0.4 AST 24 ALT 8 Alkaline Phosphatase 93 Total Protein 8.0 Albumin 4.1 Quality VTE Prophylaxis VTE prophylaxis: mechanical ordered
[2020-11-11 20:57] VITALS: BP 119/71; PULSE 73; RESP 18; TEMP 36.4; O2SAT 99
[2020-11-11] MEDS: MELATONIN 5 MG TABLET PO (21:26)
--- NOTE | 2020-11-11 22:00 | PC.NURSE ---
1800 dose of solu medrol and flagyl given late this evening at 1 due to losing IV access. Per Omar in Pharmacy give 0000 dose of flagyl and solu medrol at 0100 and then continue further doses as scheduled
[2020-11-12] MEDS: methylPREDNISolone SOD SUCC 40 MG VIAL IV PUSH ×2 (01:05→06:03)
[2020-11-12] MEDS: metroNIDAZOLE 500 MG/ISO 100ML 500 MG/100 ML BAG 100 MG IVPB ×2 (01:05→06:03)
[2020-11-12 05:58] LABS: Hematocrit 34.4 % (37.0-47.0); Hemoglobin 10.8 g/dL (12.0-15.0); Immature Granulocyte Absolute 0.01 K/mm3 (0.00-0.031); Immature Granulocyte Percent A 0.3 % (0-0.5); Lymphocytes Absolute Auto 0.56 K/mm3 (0.9-3.2); Lymphocytes Percent Auto 14.8 % (18.3-44.2); Mean Corpuscular HGB Conc 31.4 g/dl (32-36); Mean Corpuscular Hemoglobin 29.1 pg (26-34); Mean Corpuscular Volume 92.7 fl (80-100); Mean Platelet Volume 10.4 fl (7.4-10.4); Monocytes Percent Auto 0.8 % (2.6-8.5); Neutrophils Absolute Auto 3.2 K/mm3 (1.3-6.7); Neutrophils Percent Auto 84.1 % (45.5-73.1); Platelet Count Result 316 k/mm3 (150-375); Red Blood Count 3.71 M/mm3 (4.2-5.4); Red Cell Distribution Width 12.9 % (11.5-14.5); White Blood Count 3.8 K/mm3 (4.5-10.0)
[2020-11-12 06:00] VITALS: BP 111/87; PULSE 74; RESP 18; TEMP 36.2; O2SAT 98
[2020-11-12 06:00] LABS: Anion Gap 12 mmol/L (8-16); Blood Urea Nitrogen 11 mg/dL (7-17); Calcium 9.1 mg/dL (8.4-10.2); Carbon Dioxide 21 mmol/L (22-30); Chloride 109 mmol/L (98-107); Estimated CRCL calculation 54 ml/min; Estimated Glomerular Filt Rate > 60; Glucose 143 mg/dL (65-105); Potassium 3.8 mmol/L (3.4-5.0); Sodium 142 mmol/L (137-145)
[2020-11-12] MEDS: FAMOTIDINE 20 MG TABLET PO (08:30)
--- NOTE | 2020-11-12 10:12 | PM.DS ---
DS: Admitting Diagnosis Admitting Diagnosis Admitting Diagnosis: abscess, crohns DS: Discharge Diagnosis Discharge Diagnosis (1) Exacerbation of Crohn's disease: Qualifiers: Digestive disease complication type: with abscess Qualified Code(s): K50.914 - Crohn's disease, unspecified, with abscess Code(s): K50.90 - Crohn's disease, unspecified, without complications Status: Acute Assessment and Plan: patient's pain and diarrhea has improved -she was on solumedrol while hospitalized but GI did not recommend any further steroids at d/c -continue levofloxacin and Flagyl for abscess coverage, plan for repeat CT with GI -pt does not take medications for this at home and it is well controlled (2) Intra-abdominal abscess: Code(s): K65.1 - Peritoneal abscess Status: Acute Assessment and Plan: noted on CT - sx recommends abx -follow up CT with GI outpt (3) Gastroesophageal reflux disease: Code(s): K21.9 - Gastro-esophageal reflux disease without esophagitis Status: Acute Assessment and Plan: continue home medications DS: Summary Hospital Course Hospital Course: Patient is a 70-year-old female with a history of well-controlled Crohn's who presented emergency room on 11/10/20 for abdominal distension and diarrhea. Vitals in the ER were normal. Initial white blood cell count 7.3, hemoglobin 11.2, hematocrit 35.7, platelets 316. BMP shows slight hypokalemia at 3.1. CT of abdomen pelvis showed: 1. Inflammation of closely spaced loops of small bowel and of the sigmoid colon, consistent with Crohn disease. A 2.5 x 1.8 x 1.1 cm fluid collection in this area may be extraluminal and is suspicious for abscess. The bowel inflammation abuts the vagina suspicious for enterovaginal fistula. 2. Mild mesenteric lymphadenopathy, likely reactive. The patient denies any vaginal discharge. she was admitted to the hospitalist service and started on antibiotics as well as steroids. She did well with this regimen and she and her diarrhea resolved. Surgery saw her and recommended conservative treatment with antibiotics and close monitoring. GI was consulted and recommended antibiotics as well and will do an outpatient CT and no need for P.o. steroids. The patient was able to increase her diet and was eating a regular diet at discharge. She had absolutely no concerns or complaints the day of discharge. Spoke with Dr. Gu 11/12/20 who states the patient is able to be discharged and he will follow-up with her for a repeat CT scan of the abdomen and a colonoscopy. He does not recommend any additional steroids at discharge. He has placed her on Flagyl and has recommended Levaquin as well. Patient was educated about the worrisome signs and symptoms to come back to emergency room for and was discharged in stable condition. Status at Discharge Functional status at discharge: independent ambulation Time Spent with Patient Time attestation: Total time spent providing and/or coordinating discharge services:35 min Time spent: Greater than 30 minutes Exam Narrative: Exam Narrative: General: Well developed well nourished patient in NAD HEENT: normocephalic Neck: supple Neuro: Alert and oriented x4 CV:RRR Resp:CTA Abd: Soft, mildly distended. No pain to palpation. Positive bowel sounds Extremities: No swelling, erythema, or pain to palpation. DS: Data Data Completed and Pending Labs on day of discharge: Labs from last 24 hours 11/12/20 11/12/20 11/11/20 05:30 05:30 10:34 WBC 3.8 L RBC 3.71 L Hgb 10.8 L Hct 34.4 L MCV 92.7 MCH 29.1 MCHC 31.4 L RDW 12.9 Plt Count 316 MPV 10.4 Immature Gran % (Auto) 0.3 Neut % (Auto) 84.1 H Lymph % (Auto) 14.8 L Blanco % (Auto) 0.8 L Eos % (Auto) 0.0 Baso % (Auto) 0.0 L Lymph # (Auto) 0.56 L Blanco # (Auto) 0.0 L Eos # (Auto) 0.0 Baso # (Auto) 0.0 Abs Immat Gran (a
[2020-11-17 18:01] LABS: Calprotectin, Stool 401 mcg/g
== END 2020-11-12 12:30 | disposition home or self-care (01) | DRG 385 ==
LOC: ANHED 14:10 → ANH2MED 18:01
PROVIDERS: Internal Medicine Gastroenterology; Physician Assistant; Admitting Provider Internal Medicine; Emergency Provider Emergency Medicine; PCP Emergency Medicine; Visit Provider Physician Assistant
DX: K50.914 Crohn's disease, unspecified, with abscess (principal); K65.1 Peritoneal abscess; K21.9 Gastro-esophageal reflux disease without esophagitis; F17.210 Nicotine dependence, cigarettes, uncomplicated; M81.0 Age-related osteoporosis without current pathological fracture; Z79.899 Other long term (current) drug therapy; Z88.0 Allergy status to penicillin
CPT/HCPCS: 36415; 74177; 80048; 80053; 81003; 83540; 83550; 83690; 83735; 83993; 85025; 96365; 99285; A9270; J1956; J2920; Q9967

== ENCOUNTER 2021-02-02 16:40 | Outpatient (CLI) | payer MEDICARE, MEDICAID, SELFPAY ==
--- NOTE | ~2021-02-02 | CT_ITS ---
EXAMINATION: CT lung screening DATE: 02/02/2021 17:42 INDICATION: Personal history of tobacco dependence, current smoker with 30 pack year history TECHNIQUE: Computed tomography (CT) of the chest was performed without intravenous contrast. The dose -length product (DLP) was 51.71 mGy-cm. Automated exposure control and iterative reconstruction techn [employer] were employed. COMPARISON: 07/28/2019 FINDINGS: Again seen are multiple groundglass nodules throughout the lungs without significant change , the largest of which measures 1.4 x 1.1 cm in the right lower lobe. None demonstrate internal solid component. No new pulmonary nodules are identified. There is no pleural effusion or pneumothorax. No pathologically enlarged thoracic lymph nodes are identified. The heart size is normal. Calcified cor onary artery atherosclerosis is noted. There is mild thoracic spondylosis. IMPRESSION: 1. Lung-RADS category 2: Benign appearance or behavior. Continue annual screening with noncontrast lo w-dose chest CT in 12 months. Reviewed, dictated and finalized at location A. IMPRESSION: 1. Lung-RADS category 2: Benign appearance or behavior. Continue annual screeni ng with noncontrast low-dose chest CT in 12 months.
== END 2021-02-02 16:41 | disposition home or self-care (01) ==
LOC: ANHIMG 16:41
PROVIDERS: PCP Emergency Medicine; Visit Provider Emergency Medicine
DX: Z12.2 Encounter for screening for malignant neoplasm of respiratory organs (principal); Z87.891 Personal history of nicotine dependence
CPT/HCPCS: 71271

== ENCOUNTER 2021-08-06 13:06 | Outpatient (CLI) | payer MEDICARE, MEDICAID, SELFPAY ==
--- NOTE | ~2021-08-06 | XR_ITS ---
EXAMINATION: XR hip RT min 2V DATE: 08/06/2021 13:58 INDICATION: Right hip pain. TECHNIQUE: 2 views of right hip were obtained. COMPARISON: None. FINDINGS: Bone alignment is normal. No fracture. There is mild right hip osteoarthritis. IMPRESSION: 1. Mild right hip osteoarthritis. Reviewed, dictated and finalized at location A.
[2021-08-06 14:27] LABS: Hematocrit 35.9 % (37.0-47.0); Hemoglobin 10.8 g/dL (12.0-15.0); Mean Corpuscular HGB Conc 30.1 g/dl (32-36); Mean Corpuscular Hemoglobin 29.1 pg (26-34); Mean Corpuscular Volume 96.8 fl (80-100); Platelet Count Result 249 k/mm3 (150-375); Red Blood Count 3.71 M/mm3 (4.2-5.4); Red Cell Distribution Width 14.5 % (11.5-14.5); White Blood Count 8.1 K/mm3 (4.5-10.0)
[2021-08-06 14:34] LABS: Alanine Aminotransferase 11 U/L (4-35); Albumin Level 3.9 g/dL (3.5-5.1); Alkaline Phosphatase 69 U/L (38-126); Anion Gap 7 mmol/L (8-16); Aspartate Amino Transferase 25 U/L (14-36); Bilirubin,Total 0.3 mg/dL (0.2-1.3); Blood Urea Nitrogen 17 mg/dL (7-17); Calcium 8.6 mg/dL (8.4-10.2); Carbon Dioxide 31 mmol/L (22-30); Chloride 105 mmol/L (98-107); Estimated Glomerular Filt Rate > 60; Glucose 84 mg/dL (65-110); Potassium 3.4 mmol/L (3.4-5.0); Sodium 143 mmol/L (137-145)
[2021-08-06 14:38] LABS: Rheumatoid Factor < 8.6 IU/ML (<12)
[2021-08-06 14:53] LABS: Erythrocyte Sedimentation Rate 51 mm/hr (0-20)
[2021-08-06 14:58] LABS: Creatinine Urine 87.4 mg/dL
[2021-08-06 15:54] LABS: Microalbumin Urine Random < 6.0 mg/L (0-16.7)
[2021-08-06 15:55] LABS: MALB Creatinine Ratio < 6.9 mg/g (0-30)
== END 2021-08-06 13:07 | disposition home or self-care (01) ==
PROVIDERS: PCP Emergency Medicine; Referring Provider Internal Medicine Nephrology; Visit Provider Emergency Medicine
DX: K50.90 Crohn's disease, unspecified, without complications (principal); M16.11 Unilateral primary osteoarthritis, right hip
CPT/HCPCS: 36415; 73502; 80053; 82043; 85027; 85652; 86038; 86430

== ENCOUNTER 2021-08-16 12:38 | Outpatient (CLI) | payer MEDICARE, MEDICAID, SELFPAY ==
--- NOTE | ~2021-08-16 | US_ITS ---
EXAMINATION: US renal BI EXAM DATE: 08/16/2021 13:19 INDICATION: Stage I chronic kidney disease. TECHNIQUE: Multiple grayscale and Doppler images of the kidneys were obtained (by a technologist who performed the scan) and subsequently reviewed. There is no prior study for comparison. FINDINGS: Right kidney: There is normal contour and echogenicity. It measures 10.2 x 4.6 x 4.7 centimeters. An echoic lesion consistent with cyst measuring 2.5 cm. There is no hydronephrosis. Left kidney: There is normal contour and echogenicity. It measures 10.4 x 4.2 x 5.2 centimeters. Th ere are no focal renal lesions identified. There is no hydronephrosis. Bladder unremarkable. IMPRESSION: 1. Sonographically unremarkable kidneys. Reviewed, dictated and finalized at location B.
== END 2021-08-16 12:39 | disposition home or self-care (01) ==
LOC: ANHIMG 12:41
PROVIDERS: PCP Emergency Medicine; Visit Provider Internal Medicine Nephrology
DX: N18.1 Chronic kidney disease, stage 1 (principal); J44.9 Chronic obstructive pulmonary disease, unspecified; N28.1 Cyst of kidney, acquired; K21.9 Gastro-esophageal reflux disease without esophagitis; K52.9 Noninfective gastroenteritis and colitis, unspecified; R80.9 Proteinuria, unspecified
CPT/HCPCS: 76775

== ENCOUNTER 2021-09-05 12:13 | Outpatient (CLI) | payer MEDICARE, MEDICAID, SELFPAY ==
--- NOTE | ~2021-09-05 | MM_ITS ---
EXAMINATION: MM screening bella BI w zaida HISTORY: Screening mammogram TECHNIQUE: Craniocaudal and mediolateral oblique 3-D tomosynthesis images were obtained and synthetic 2-D images were generated. CAD analysis was submitted and interpreted. COMPARISON: 12/23/2019 diagnostic right mammogram and limited right breast ultrasound 07/28/2019, 03/19/2017 05/17/2013 bilateral screening mammogram examinations BREAST PARENCHYMAL COMPOSITION: There are scattered areas of fibroglandular density. FINDINGS: Stable mild fibroglandular asymmetry. Occasional bilateral benign calcifications. There is no evidence of suspicious mass, calcification, or architectural distortion to suggest malignancy in e ither breast. There has been no suspicious interval change since 12/23/2019 and 07/28/2019. IMPRESSION: 1. No mammographic evidence of malignancy. 2. Recommend routine screening mammography in one year. BI-RADS Category 2: Benign finding(s). Reviewed, dictated and finalized at location D.
== END 2021-09-05 12:14 | disposition home or self-care (01) ==
LOC: ANHIMG 12:14
PROVIDERS: PCP Emergency Medicine; Visit Provider Emergency Medicine
DX: Z12.31 Encounter for screening mammogram for malignant neoplasm of breast (principal)
CPT/HCPCS: 77063; 77067

== ENCOUNTER 2021-12-08 09:51 | Outpatient (CLI) | payer MEDICARE, MEDICAID, SELFPAY ==
[2021-12-08 10:40] LABS: Basophils Percent Auto 0.4 % (0.2-1.2); Eosinophils Absolute Auto 0.3 K/mm3 (0-0.3); Eosinophils Percent Auto 3.1 % (0-4.4); Hematocrit 33.4 % (37.0-47.0); Hemoglobin 10.1 g/dL (12.0-15.0); Immature Granulocyte Absolute 0.03 K/mm3 (0.00-0.031); Immature Granulocyte Percent A 0.4 % (0-0.5); Immature Reticulocyte Fraction 14.3 % (3.0-15.9); Lymphocytes Absolute Auto 1.13 K/mm3 (0.9-3.2); Lymphocytes Percent Auto 14.2 % (18.3-44.2); Mean Corpuscular HGB Conc 30.2 g/dl (32-36); Mean Corpuscular Hemoglobin 28.9 pg (26-34); Mean Corpuscular Volume 95.4 fl (80-100); Monocytes Absolute Auto 0.5 K/mm3 (0.1-0.6); Monocytes Percent Auto 6.1 % (2.6-8.5); Neutrophils Absolute Auto 6.1 K/mm3 (1.3-6.7); Neutrophils Percent Auto 75.8 % (45.5-73.1); Platelet Count Result 333 k/mm3 (150-375); Red Cell Distribution Width 13.6 % (11.5-14.5); Reticulocyte Percent 0.98 % (0.7-4.3); Reticulocytes Absolute 0.03 B/L (32.2-175.7)
[2021-12-08 12:16] LABS: Iron 29 ug/dL (37-170)
[2021-12-08 12:18] LABS: Alanine Aminotransferase 9 U/L (6-35); Albumin Level 3.6 g/dL (3.5-5.1); Alkaline Phosphatase 68 U/L (38-126); Anion Gap 9 mmol/L (8-16); Aspartate Amino Transferase 22 U/L (14-36); Bilirubin,Total 0.4 mg/dL (0.2-1.3); Blood Urea Nitrogen 11 mg/dL (7-17); Carbon Dioxide 28 mmol/L (22-30); Chloride 104 mmol/L (98-107); Estimated Glomerular Filt Rate > 60; Glucose 92 mg/dL (65-110); Lactate Dehydrogenase 342 U/L (313-618); Potassium 3.6 mmol/L (3.4-5.0); Sodium 141 mmol/L (137-145)
[2021-12-08 12:27] LABS: Percent Iron Saturation 11 % (20-50)
[2021-12-08 12:49] LABS: Thyroid Stimulating Hormone 0.599 uIU/mL (0.465-4.680)
[2021-12-08 13:39] LABS: Folic Acid > 20.0 ng/mL (2.76->20)
[2021-12-12 00:42] LABS: Methylmalonic Acid 265 nmol/L (87-318)
== END 2021-12-08 09:52 | disposition home or self-care (01) ==
LOC: ANHLAB 10:00
PROVIDERS: PCP Emergency Medicine; Visit Provider Internal Medicine Hematology & Oncology
DX: D64.9 Anemia, unspecified (principal)
CPT/HCPCS: 36415; 80053; 82607; 82728; 82746; 83540; 83550; 83615; 83921; 84443; 85025; 85046

== ENCOUNTER 2022-01-31 01:39 | Day surgery (SDC) | payer MEDICARE, MEDICAID, SELFPAY ==
[2022-01-15 15:33] VITALS: BMI 22.2
[2022-01-31 11:04] VITALS: BP 139/83; PULSE 85; RESP 18; TEMP 36.2; O2SAT 100; BMI 22.0
--- NOTE | 2022-01-31 11:48 | PM.HPGS ---
History of Present Illness History of Present Illness Consent: Risks, benefits, and alternatives have been discussed and questions answered. Patient agrees to proceed with procedure. Chief complaint: Crohn's Disease Narrative: Lakisha Schwarz is a 71 year old female who since her discharge 1 month ago with an abdominal abscess, she has finished taking her antibiotics.? She states that she does not really feel any different.? No worse or better.? She continues to have mild abdominal pain, nearly constant.? It seems to [place] around her abdomen from the epigastric area down to the lower quadrants.? She feels her abdomen is getting distended.? Her appetite is good.? She denies nausea or vomiting.? She has not lost weight ? She continues to have loose stools having 6 or 7 watery bowel movements every day which are brown.? There is no blood in her stools.? She has begun taking Imodium usually 2 per day which helps somewhat. Her initial diagnosis of Crohn's disease was made about 10 years ago. Her prior gastroenterologis t had her on Apriso, but then her primary care physician discontinued it for some reason. she had a resection of bowel many years ago when it was twisted we do not know if was colon or small bowel. She had a small bowel series done that showed rapid transit and the radiographic interpretation was that she may have had part of her colon resected previously. Review of Systems Review of Systems: All systems reviewed & are unremarkable except as noted in HPI and below PMFSH Past Medical History Medical History Crohn's disease Gastroesophageal reflux disease Osteoporosis Surgical History Surgical History History of appendectomy History of bowel resection History of cholecystectomy History of colonoscopy History of hysterectomy History of ventral hernia repair Family History Family History Other No pertinent family history Social History Social History Social History: The patient lives in [place] with her daughter. She smokes perhaps 3 cigarettes a day. No alcohol or illicit substance abuse. She designates her daughter, Chloe Rodriguez, as her surrogate decision maker. Code status: Full code. Smoking status: Current every day smoker Alcohol intake: never Substance use: former Substance use type: marijuana Living arrangements: with family Spiritual care concerns: No Meds Home Medications and Allergies Home Medications Medication Instructions Recorded Confirmed Type alendronate 70 mg tablet 70 mg PO WEEKLY 11/10/20 01/15/22 History famotidine 20 mg tablet (Pepcid) 20 mg PO BID 11/10/20 01/15/22 History melatonin 3 mg tablet 3 mg PO HS PRN Insomnia 11/10/20 01/15/22 History budesonide 3 mg See Rx Instructions .Route 09/16/21 01/15/22 Rx capsule,delayed,extended release .COMPLEX #270 caps ferrous sulfate 325 mg (65 mg 325 mg PO BID 01/15/22 01/15/22 History iron) tablet,delayed release Allergies Allergy/AdvReac Type Severity Reaction Status Date / Time Penicillins Allergy Mild ITCH Verified 01/31/22 11:03 Vital Signs Vital Signs - 24 hr 01/31/22 11:04 Temperature 36.2 C L Pulse Rate 85 Respiratory Rate 18 Blood Pressure 139/83 Pulse Oximetry 100 Oxygen Delivery Room Air Exam Const: General: alert Orientation/consciousness: patient oriented x3 Resp: Auscultation: clear to auscultation bilaterally Cardio: Rhythm: regular rhythm GI: GI Palp: Yes Soft to palpation and No Tenderness to palpation present (GI) Neuro: General: patient oriented x3 Assessment and Plan Assessment and plan (1) Exacerbation of Crohn's disease: Qualifiers: Digestive disease complication type: with abscess Qualified Code(s): K50.914 - Crohn's d
--- NOTE | 2022-01-31 12:35 | P.PNAN_ITS ---
Anes - Initial Pre Proc Eval Procedure: Operation Date: 01/31/22 12:30 Proposed Procedures p Colonoscopy - Jacob Gu MD Date/Time: 01/31/22 12:35 Surgeon: Jacob Gu MD Pre Op Diagnosis: Crohn's Disease Patient Data Age: 71 Gender: F Height: 1.55 m Weight: 52.9 kg Last Vital Signs Temp 97.1 F L 01/31/22 11:04 Pulse 85 01/31/22 11:04 Resp 18 01/31/22 11:04 BP 139/83 01/31/22 11:04 Pulse Ox 100 01/31/22 11:04 O2 Del Method Room Air 01/31/22 11:04 Allergies Allergy/AdvReac Type Severity Reaction Status Date / Time Penicillins Allergy Mild ITCH Verified 01/31/22 11:03 Home Medications Medication Instructions Recorded Confirmed Type alendronate 70 mg tablet 70 mg PO WEEKLY 11/10/20 01/15/22 History famotidine 20 mg tablet (Pepcid) 20 mg PO BID 11/10/20 01/15/22 History melatonin 3 mg tablet 3 mg PO HS PRN Insomnia 11/10/20 01/15/22 History budesonide 3 mg See Rx Instructions .Route 09/16/21 01/15/22 Rx capsule,delayed,extended release .COMPLEX #270 caps ferrous sulfate 325 mg (65 mg 325 mg PO BID 01/15/22 01/15/22 History iron) tablet,delayed release Patient hx anesthesia problems: none Family hx anesthesia problems: none Results Review: All pre-operative results and documents have been reviewed as part of the pre- operative evaluation. [facility] Past Medical History Medical History Crohn's disease Gastroesophageal reflux disease Osteoporosis Surgical History Surgical History History of appendectomy History of bowel resection History of cholecystectomy History of colonoscopy History of hysterectomy History of ventral hernia repair Family History Family History Other No pertinent family history Social History Social History Social History: The patient lives in [place] with her daughter. She smokes perhaps 3 cigarettes a day. No alcohol or illicit substance abuse. She designates her daughter, Chloe Rodriguez, as her surrogate decision maker. Code status: Full code. Smoking status: Current every day smoker Alcohol intake: never Substance use: former Substance use type: marijuana Living arrangements: with family Spiritual care concerns: No Anes - Eval Final PreProcedure Day of Procedure 01/31/22 12:35 Patient weight: normal Heart: regular rate and rhythm Lungs: clear to auscultation Airway: Mallampati scale class II Neurological: alert and oriented Last oral intake: >/= 8 hours ASA classification: III Emergent: no Anesthetic plan: proceed Anesthesia type and monitoring: general GIVS and standard monitoring Results Review: All pre-operative results and documents have been reviewed as part of the pre-operative evaluation. Informed Consent: The patient's anesthetic plan and its attendant risks and benefits were discussed with the patient/family/POA. Questions were solicited and answers provided to the satisfaction of the patient/family/POA.
[2022-01-31] MEDS: LACTATED RINGERS 1,000 ML 150 ML IV CONT (12:50)
[2022-01-31 12:53] VITALS: BP 119/78; PULSE 50; RESP 16; O2SAT 96
[2022-01-31 13:03] VITALS: BP 130/75; PULSE 71; RESP 22; O2SAT 100
[2022-01-31 13:13] VITALS: BP 113/75; PULSE 74; RESP 21; O2SAT 100
== END 2022-01-31 13:23 | disposition home or self-care (01) ==
PROVIDERS: PCP Emergency Medicine; Visit Provider Internal Medicine Gastroenterology
PROC: 0DJD8ZZ Inspection of Lower Intestinal Tract, Via Natural or Artificial Opening Endoscopic (ICD-10-PCS; CPT 45378; principal; 2022-01-31 12:30)
DX: Z12.11 Encounter for screening for malignant neoplasm of colon (principal); K57.30 Diverticulosis of large intestine without perforation or abscess without bleeding; K50.00 Crohn's disease of small intestine without complications; Z98.0 Intestinal bypass and anastomosis status; R10.9 Unspecified abdominal pain; M81.0 Age-related osteoporosis without current pathological fracture; Z90.49 Acquired absence of other specified parts of digestive tract; F17.210 Nicotine dependence, cigarettes, uncomplicated; F12.90 Cannabis use, unspecified, uncomplicated
CPT/HCPCS: G0121; J2704; J7120

== ENCOUNTER 2022-03-15 15:29 | Outpatient (CLI) | payer MEDICARE, SELFPAY ==
[2022-03-25 19:47] LABS: Calprotectin, Stool 644 mcg/g
== END 2022-03-15 15:30 | disposition home or self-care (01) ==
LOC: ANHLAB 15:31
PROVIDERS: PCP Emergency Medicine; Visit Provider Internal Medicine Gastroenterology
DX: K50.914 Crohn's disease, unspecified, with abscess (principal)
CPT/HCPCS: 83993

== ENCOUNTER 2022-04-11 08:27 | Outpatient (CLI) | payer MEDICARE, SELFPAY ==
--- NOTE | ~2022-04-11 | XR_ITS ---
EXAMINATION: XR UGIAC w small bowel DATE: 04/11/2022 12:06 INDICATION: Crohn's disease, unspecified with abscess. TECHNIQUE: The patient drank thick barium, gas-producing crystals, and thin barium. Conventional supi ne abdomen radiographs and fluoroscopic spot radiographs of the esophagus, stomach, and proximal smal l bowel were obtained. Additional overhead radiographs were obtained during the transit through the s mall bowel. Spot fluoroscopic images of the small bowel were obtained upon contrast reaching the cec um. Fluoroscopy exposure time was 2.7 minutes. A total of 848 fluoroscopic images and 8 overhead radi ographs were obtained. COMPARISON: None. FINDINGS: The esophagus is normal without mass or stricture. Esophageal motility is normal. There is no hiatal hernia. There was no observed gastroesophageal reflux however patient drank relatively slowly compari son to the suspected gastric emptying with a limited amount of contrast in the stomach limiting sensi tivity for reflux. The stomach and proximal small bowel are normal. [employer] images demonstrate postoperative changes with anastomotic suture line in the right lower quadra nt consistent with prior resection of the terminal ileum and proximal colon. Transit time from the st omach to proximal aspect of the remaining colon was approximately 2 hours. There is normal caliber an d mucosal fold pattern throughout the small bowel. No strictures, mucosal fold thickening or fistulou s communications along the course of the small bowel. No tethering or abnormal mass effect observed u sherly the small bowel with real-time fluoroscopy. IMPRESSION: 1. Ileocolic anastomosis in the right lower quadrant reportedly related to prior partial colectomy an d likely distal ileal resection for reported Crohn's disease. Otherwise unremarkable study. Reviewed, dictated and finalized at location A. T BIOLOGY PROFESSOR IMPRESSION: 1. Ileocolic anastomosis in the right lower quadrant reportedly related to prio r partial colectomy and likely distal ileal resection for reported Crohn's dise ase. Otherwise unremarkable study.
== END 2022-04-11 08:28 | disposition home or self-care (01) ==
PROVIDERS: PCP Emergency Medicine; Visit Provider Internal Medicine Gastroenterology
DX: K50.914 Crohn's disease, unspecified, with abscess (principal); K63.89 Other specified diseases of intestine
CPT/HCPCS: 74246; 74248

== ENCOUNTER 2023-03-14 13:30 | Outpatient (CLI) | payer MEDICARE, MEDICAID, SELFPAY ==
--- NOTE | ~2023-03-14 | CT_ITS ---
EXAMINATION: CT abdomen pelvis w con DATE: 03/14/2023 14:42 INDICATION: Abdominal pain and distention. Crohn's disease. TECHNIQUE: Computed tomography (CT) of the abdomen and pelvis was performed with 100 mL Omnipaque 350 intravenous contrast. Automated exposure control and iterative reconstruction technique were employe d. The dose-length product was 166.07 mGy-cm. COMPARISON: CT abdomen and pelvis 11/10/20 FINDINGS: The visualized portions of the lung bases demonstrate mild atelectasis. No pleural effusion . The heart size is normal. No pericardial effusion. The liver is normal. The gallbladder is absent. The spleen and pancreas and normal. There is chronic thickening of the adrenal glands, likely benign. There are cysts in the kidneys measuring up to 2.4 cm on the right. There is cortical thinning of th e kidneys. There are scattered diverticula in the colon. There is an ileocolic anastomosis. There is wall thickening of closely spaced loops of small bowel including distal ileum and the adjacent sigmoi d colon, consistent with inflammation. There is mesenteric fat stranding in these areas. The bowel in flammation abuts the vagina. There are no pathologically enlarged lymph nodes. There is no free intra peritoneal fluid. There is mild lumbar spondylosis. IMPRESSION: 1. Inflammation of small bowel and the adjacent sigmoid colon, stable from 11/06/2020, consistent with Crohn disease. Reviewed, dictated and finalized at location E. EY BRAKEMAN IMPRESSION: 1. Inflammation of small bowel and the adjacent sigmoid colon, stable from 2020, consistent with Crohn disease.
[2023-03-14 14:22] LABS: Estimated Glomerular Filt Rate > 60
== END 2023-03-14 13:31 | disposition home or self-care (01) ==
PROVIDERS: PCP Emergency Medicine; Visit Provider Internal Medicine Gastroenterology
DX: R10.9 Unspecified abdominal pain (principal); K50.90 Crohn's disease, unspecified, without complications; R14.0 Abdominal distension (gaseous)
CPT/HCPCS: 74177; Q9967

== ENCOUNTER 2023-03-16 08:10 | Emergency (ER) | payer MEDICARE, MEDICAID, SELFPAY ==
[2023-03-16 08:16] VITALS: BP 146/86; PULSE 99; RESP 14; TEMP 36.3; O2SAT 100
[2023-03-16] MEDS: DICYCLOMINE HCL INJ 20 MG/2 ML VIAL IM (09:14)
[2023-03-16] MEDS: TIZANIDINE HCL 2 MG TABLET PO (09:18)
[2023-03-16 09:21] LABS: Basophils Percent Auto 0.5 % (0.2-1.2); Eosinophils Percent Auto 0.2 % (0-4.4); Hematocrit 35.9 % (37.0-47.0); Immature Granulocyte Absolute 0.01 K/mm3 (0.00-0.031); Immature Granulocyte Percent A 0.2 % (0-0.5); Lymphocytes Absolute Auto 0.81 K/mm3 (0.9-3.2); Lymphocytes Percent Auto 14.1 % (18.3-44.2); Mean Corpuscular HGB Conc 30.6 g/dl (32-36); Mean Corpuscular Hemoglobin 28.7 pg (26-34); Mean Corpuscular Volume 93.7 fl (80-100); Mean Platelet Volume 8.7 fl (7.4-10.4); Monocytes Absolute Auto 0.5 K/mm3 (0.1-0.6); Monocytes Percent Auto 9.1 % (2.6-8.5); Neutrophils Absolute Auto 4.4 K/mm3 (1.3-6.7); Neutrophils Percent Auto 75.9 % (45.5-73.1); Platelet Count Result 452 k/mm3 (150-375); Red Blood Count 3.83 M/mm3 (4.2-5.4); Red Cell Distribution Width 14.5 % (11.5-14.5); White Blood Count 5.7 K/mm3 (4.5-10.0)
[2023-03-16 09:24] VITALS: BP 124/92; PULSE 95; RESP 16; O2SAT 99
[2023-03-16] MEDS: SODIUM CHLORIDE 0.9% IV 500 ML 999 ML IV CONT (09:29)
[2023-03-16 09:47] LABS: Alanine Aminotransferase 14 U/L (6-35); Albumin Level 3.5 g/dL (3.5-5.1); Alkaline Phosphatase 89 U/L (38-126); Anion Gap 8 mmol/L (8-16); Aspartate Amino Transferase 28 U/L (14-36); Bilirubin,Total 0.7 mg/dL (0.2-1.3); Blood Urea Nitrogen 12 mg/dL (7-17); Calcium 9.2 mg/dL (8.4-10.2); Carbon Dioxide 29 mmol/L (22-30); Chloride 103 mmol/L (98-107); Estimated CRCL calculation 51 ml/min; Estimated Glomerular Filt Rate > 60; Glucose 86 mg/dL (65-110); Lipase 18 U/L (23-300); Potassium 4.4 mmol/L (3.4-5.0); Sodium 140 mmol/L (137-145)
--- NOTE | 2023-03-16 10:36 | ED.GENADULT ---
HPI - General Adult General Chief complaint: Headache Stated complaint: headache/abd pain Time Seen by Provider: 03/16/23 08:18 History of Present Illness HPI narrative: Patient is a 72-year-old female who presents ER with 2 main complaints. 1 is headache. Right-sided. Associated with neck discomfort. Waxing and waning intensity for the last couple days. Improves with Tylenol. Patient also started having abdominal cramping related to her Crohn's disease today. Ports this happens regularly. No fevers or chills or sweats. No blood in her stool. No change in vision or hearing. No weakness in arm or leg. No slurred speech. Related Data Home Medications Medication Instructions Recorded Confirmed famotidine 20 mg tablet (Pepcid) 20 mg PO BID 11/10/20 03/04/23 ferrous sulfate 325 mg (65 mg 325 mg PO BID 01/15/22 03/04/23 iron) tablet,delayed release cyanocobalamin (vitamin B-12) 1,000 mcg PO DAILY 03/12/22 03/04/23 1,000 mcg capsule Allergies Allergy/AdvReac Type Severity Reaction Status Date / Time Penicillins Allergy Mild ITCH Verified 03/16/23 08:20 Review of Systems Review of Systems: All systems reviewed & are unremarkable except as noted in HPI and below Constitutional: Constitutional: Denies chills, Denies fatigue and Denies fever(s) ENT: Denies nasal congestion and Denies sore throat Cardiovascular: Cardiovascular: Denies chest pain, Denies rapid heart rate and Denies radiating jaw, neck or arm pain Respiratory: Respiratory: Denies cough and Denies dyspnea Gastrointestinal: Gastrointestinal: Reports abdominal pain, Reports bloating, Reports diarrhea, Reports nausea and Denies vomiting Genitourinary: Genitourinary: Denies nocturia and Denies dysuria Neurologic: Reports headache(s), Denies focal weakness and Denies numbness PMFSH Past Medical History Medical History Crohn's disease Gastroesophageal reflux disease Osteoporosis Surgical History Surgical History History of appendectomy History of bowel resection History of cholecystectomy History of colonoscopy History of hysterectomy History of ventral hernia repair Family History Family History Other No pertinent family history Social History Social History Social History: The patient lives in [place] with her daughter. She smokes perhaps 3 cigarettes a day. No alcohol or illicit substance abuse. She designates her daughter, Chloe Rodriguez, as her surrogate decision maker. Code status: Full code. Smoking status: Current every day smoker Alcohol intake: never Substance use: former Substance use type: marijuana Living arrangements: with family Spiritual care concerns: No Exam Narrative: GENERAL: Well-appearing, well-nourished, and in no acute distress. HEAD: Normocephalic, atraumatic. ENT: Mucous membranes moist. NECK: Supple. Mild tenderness right paraspinal muscles of the cervical spine. No midline tenderness. Normal range of motion. CHEST: Clear to auscultation. No respiratory distress. HEART: Regular rate and rhythm. Normal peripheral pulses. ABDOMEN: Soft, nontender, nondistended. EXTREMITIES: Normal range of motion. No edema. SKIN: Warm, dry, no rash. NEURO: Alert and oriented x3. PSYCH: Normal mood and affect. Course Course Emergency Course: Patient resting comfortably. Feels improved after medication. Discharge home with supportive care. Vital Signs Vital signs: Vital Signs Temperature 97.3 F L 03/16/23 08:16 Pulse Rate 99 03/16/23 08:16 Respiratory Rate 14 03/16/23 08:16 Blood Pressure 146/86 H 03/16/23 08:16 Pulse Oximetry 100 03/16/23 08:16 Oxygen Delivery Room Air 03/16/23 08:16 Temperature 97.3 F L 03/16/23 08:16 Pulse Rate 92 03/16
[2023-03-16 11:04] VITALS: BP 127/82; PULSE 92; RESP 16; O2SAT 100
== END 2023-03-16 11:05 | disposition home or self-care (01) ==
PROVIDERS: Emergency Provider Emergency Medicine; PCP Emergency Medicine
DX: M54.2 Cervicalgia (principal); K50.90 Crohn's disease, unspecified, without complications; K21.9 Gastro-esophageal reflux disease without esophagitis; M81.0 Age-related osteoporosis without current pathological fracture; F17.210 Nicotine dependence, cigarettes, uncomplicated; Z90.49 Acquired absence of other specified parts of digestive tract; Z90.710 Acquired absence of both cervix and uterus
CPT/HCPCS: 36415; 80053; 83690; 85025; 96360; 96372; 99283; A9270; J0500; J7040

== ENCOUNTER 2023-03-18 09:30 | Observation (INO) | payer MEDICARE, MEDICAID, SELFPAY ==
[2023-03-18] VITALS (21 sets, daily range): BP systolic 105–124; BP diastolic 67–81; PULSE 84–108; RESP 13–25; TEMP 35.7–36.8; O2SAT 96–100; BMI 17.9
--- NOTE | 2023-03-18 10:02 | PC.NURSE ---
attempted IV access x1, pt requesting vascular access nurse
[2023-03-18 10:41] LABS: Basophils Percent Auto 0.6 % (0.2-1.2); Eosinophils Percent Auto 0.2 % (0-4.4); Hematocrit 31.3 % (37.0-47.0); Hemoglobin 9.7 g/dL (12.0-15.0); Immature Granulocyte Absolute 0.01 K/mm3 (0.00-0.031); Immature Granulocyte Percent A 0.2 % (0-0.5); Lymphocytes Absolute Auto 0.85 K/mm3 (0.9-3.2); Lymphocytes Percent Auto 16.9 % (18.3-44.2); Mean Corpuscular Hemoglobin 28.3 pg (26-34); Mean Corpuscular Volume 91.3 fl (80-100); Monocytes Absolute Auto 0.5 K/mm3 (0.1-0.6); Monocytes Percent Auto 9.5 % (2.6-8.5); Neutrophils Absolute Auto 3.7 K/mm3 (1.3-6.7); Neutrophils Percent Auto 72.6 % (45.5-73.1); Platelet Count Result 486 k/mm3 (150-375); Red Blood Count 3.43 M/mm3 (4.2-5.4); Red Cell Distribution Width 14.4 % (11.5-14.5)
[2023-03-18 10:49] LABS: Alanine Aminotransferase 15 U/L (6-35); Albumin Level 3.2 g/dL (3.5-5.1); Alkaline Phosphatase 86 U/L (38-126); Anion Gap 8 mmol/L (8-16); Aspartate Amino Transferase 25 U/L (14-36); Bilirubin,Total 0.5 mg/dL (0.2-1.3); Blood Urea Nitrogen 25 mg/dL (7-17); Calcium 9.9 mg/dL (8.4-10.2); Carbon Dioxide 33 mmol/L (22-30); Chloride 98 mmol/L (98-107); Estimated CRCL calculation 36 ml/min; Estimated Glomerular Filt Rate > 60; Glucose 109 mg/dL (65-110); Lipase 23 U/L (23-300); Potassium 3.5 mmol/L (3.4-5.0); Sodium 139 mmol/L (137-145)
--- NOTE | 2023-03-18 12:10 | ED.ABDPAIN ---
HPI - Abdominal Pain General Chief Complaint: Abdominal Pain Stated Complaint: crohns flare up Time Seen by Provider: 03/18/23 11:11 Source: patient Limitations: no limitations History of Present Illness HPI narrative: Patient is a 72-year-old female presented emergency department complaining of abdominal pain. Patient states that she saw her bunch breaker this morning was sent over to the emergency department by her bunch breaker for admission and IV steroids and potentially getting started on biologics. Patient states she has been having abdominal pain for the past 2 weeks that has been progressively worsening without any abrupt changes today. Patient admits to associated weight loss. Patient is to frequent diarrhea with watery bowel movements multiple times throughout the day. Patient denies any melena or hematochezia. Patient denies any urinary discomfort. Patient is to take your medications as prescribed without any recent changes. Patient denies antibiotic use. Patient denies chest pain, shortness of breath, cough, rash, nausea, vomiting. Patient describes the abdominal pain is diffuse, more so on the right side of her abdomen, has not noticed anything making the pain better or worse, pain feels similar to her history of Crohn's flare. Patient denies any fevers. Related Data Home Medications Medication Instructions Recorded Confirmed famotidine 20 mg tablet (Pepcid) 20 mg PO BID 11/10/20 03/18/23 ferrous sulfate 325 mg (65 mg 325 mg PO BID 01/15/22 03/18/23 iron) tablet,delayed release cyanocobalamin (vitamin B-12) 1,000 mcg PO DAILY 03/12/22 03/18/23 1,000 mcg capsule Allergies Allergy/AdvReac Type Severity Reaction Status Date / Time Penicillins Allergy Mild ITCH Verified 03/18/23 10:40 Review of Systems Review of Systems: A 10 system review of systems was completed on the patient and is negative except for what is stated in the HPI. Nursing and ancillary documentation was reviewed. [facility] Past Medical History Medical History Crohn's disease Gastroesophageal reflux disease Osteoporosis Surgical History Surgical History History of appendectomy History of bowel resection History of cholecystectomy History of colonoscopy History of hysterectomy History of ventral hernia repair Family History Family History Other No pertinent family history Social History Social History Social History: The patient lives in [place] with her daughter. She smokes perhaps 3 cigarettes a day. No alcohol or illicit substance abuse. She designates her daughter, Chloe Rodriguez, as her surrogate decision maker. Code status: Full code. Smoking status: Current every day smoker Alcohol intake: never Substance use: former Substance use type: marijuana Living arrangements: with family Spiritual care concerns: No Comments At time of signature, I have reviewed and agree with nursing past medical, surgical, social and family history unless otherwise noted. Please see the nursing chart for further information. There is no relevant family history pertinent to the presenting complaint. Exam Narrative: CONST: No acute distress. Well nourished. HENMT: Head is normocephalic and atraumatic. Tacky mucous membranes. No posterior oropharynx erythema. EYES: No conjunctival icterus, injection, or pallor. PERRL. NECK: No meningeal signs. RESP: Able to speak in full sentences. Normal respiratory effort. CTAB. CARDIO: Regular rate. Regular rhythm. 2+ DP and radial pulses bilaterally. GI: Nondistended. Mild diffuse abdominal tenderness to palpation. No rebound or guarding or rigidity. Negative Morgan sign. No McBurney's point tenderness to palpation. No palpable masses or hernias.
[2023-03-18] MEDS: SODIUM CHLORIDE 0.9% IV 1,000 ML 999 ML IV CONT (12:28)
[2023-03-18] MEDS: MORPHINE SULFATE (*CRX) 4 MG/ML INJ IV PUSH (12:29)
[2023-03-18] MEDS: methylPREDNISolone SOD SUCC 40 MG VIAL IV PUSH (12:29)
[2023-03-18 12:49] LABS: Magnesium 1.9 mg/dL (1.6-2.3)
[2023-03-18 12:59] LABS: CRP 13.6 mg/dL (<1.0)
[2023-03-18 12:59] LABS: Lactic Acid Reflex 1.2 mmol/L (0.7-2.0)
[2023-03-18 13:01] LABS: Erythrocyte Sedimentation Rate > 140 mm/hr (0-20)
[2023-03-18 13:08] LABS: Appearance Urine Cloudy (Clear); Bacteria Urine Rare /hpf; Bilirubin Urine Negative (Negative); Blood Urine Negative (Negative); Color Urine Yellow (Yellow); Glucose Urine UA Negative (Negative); Ketones Urine Trace mg/dL (Negative); Leukocyte Esterase Ur Negative LEU/UL (Negative); Need Manual Microscopic Reviewed; Nitrate Urine Negative (Negative); Protein Urine Negative (Negative); Specific Grav Ur 1.021 (1.001-1.035); Squamous Epithelial Cell Urine Occasional /hpf (Few); WBC Urine 0-5 /hpf; pH Urine 5.5 (5.0-9.0)
[2023-03-18 13:09] LABS: Add Urine Microscopic? YES
[2023-03-18] MEDS: SODIUM CHLORIDE 0.9% IV 1,000 ML 125 ML IV CONT ×2 (13:33→21:05)
--- NOTE | 2023-03-18 15:50 | ADMGEN ---
This patient, Lakisha Schwarz, was admitted to 3 Med Surg Room 317-02. Patient/family oriented to hospital policies and general routines including ID bracelet, bed and alarms, visiting hours, pain management, procedures, bathroom and other care routines, personal items, smoking policy, room service/diet, and visiting hours. Information on how to activate the Rapid Response Team has been discussed. Patient/Family are encouraged to report perceived risks to care and to ask questions if they do not understand what they are told or what they should do.
--- NOTE | 2023-03-18 16:28 | WPDGICN ---
Assessment and Plan Assessment and plan (1) Abdominal pain: Code(s): R10.9 - Unspecified abdominal pain Status: Acute Assessment and Plan: She is having increasing abdominal pain for the past few weeks.? Is uncomfortable when I saw her a month ago and has not really gotten any better since then.? She went to emergency room 2 days ago with headache and abdominal pain.? They were more focused on had a because of her history of strokes.? It sent home with dicyclomine but she states this has not done anything for her pain. On examination she is quite tender. she received morphine in emergency room which has helped somewhat. (2) Exacerbation of Crohn's disease: Code(s): K50.90 - Crohn's disease, unspecified, without complications Status: Acute Assessment and Plan: Her fecal calprotectin has been gradually increasing.? Was [address] scan of the abdomen done last week revealed inflammation of the small bowel and adjacent sigmoid colon but did not reveal any significant changes since 2020 and did not show fistulas.? She has had a prior resection and has an ileocolic anastomosis. She has a history of fistulizing this may be occurring considering how watery her stools are. Fistula was not seen on recent CT scan but must be considered. (3) Elevated fecal calprotectin: Code(s): R19.5 - Other fecal abnormalities Status: Acute Assessment and Plan: Her last level 644. I will repeat it here and suspected is much higher. (4) Chronic diarrhea: Code(s): K52.9 - Noninfective gastroenteritis and colitis, unspecified Status: Acute Assessment and Plan: She has chronic diarrhea which has become much worse recently. I will begin Imodium. Will also check calprotectin level. (5) Crohn's disease of colon with fistula: Code(s): K50.113 - Crohn's disease of large intestine with fistula Status: Acute Assessment and Plan: she has history of fistulas and with her watery diarrhea I am concerned about recurrence. Recent CT scan did not show that but I think it is a significant possibility. She will need a biologic. Plan Intravenous fluids. Bowel rest except for liquids initially. Pain management Begin IV steroids and metronidazole We will obtain serology for hepatitis and also check TB status in preparation for starting biologic therapy GI Consult Note Consult date/time: 03/18/23 16:28 HPI: Lakisha Schwarz is a 72 year old female who had seen early this morning when she walked into the office complaining of acute exacerbation of her chronic abdominal pain. She is known to have Crohn's disease and has been maintained on oral meds. Over the past several months she has had progressive weight loss. She in fact has lost about 7 or 8 lb just since I saw her few weeks ago. She is able to eat but everything goes right through she has continuous diarrhea with some incontinence. She does not see blood her stools. She takes Imodium but without any significant effect. I had her go to the emergency room at which point she was started on intravenous fluids, given morphine for pain and started on intravenous steroids. The pain medication has helped somewhat Review of Systems Review of Systems: review of systems is negative except as mentioned HPI and below PMFSH Past Medical History Medical History Crohn's disease Gastroesophageal reflux disease Osteoporosis Surgical History Surgical History History of appendectomy History of bowel resection History of cholecystectomy History of colonoscopy History of hysterectomy History of ventral hernia repair Family History Family History Other No pertinent family history Social History Social History (Reviewed 03/18/23 @
[2023-03-18 18:23] LABS: Hepatitis B Surface Antigen Negative (Negative)
[2023-03-18 18:40] LABS: Hepatitis B Surface Anti Res Negative
--- NOTE | 2023-03-18 19:00 | PM.IMHP ---
H&P: HPI History of Present Illness Date/Time: 03/18/23 19:00 Chief Complaint: Abdominal Pain Narrative: 72 y/o F presents here with decreased appetite, abdominal pain, and an increase in diarrhea with PMH of Crohn's, GERD, HENRRY, CVA, and osteoporosis. Patient reports that she has had a decrease in appetite and poor p.o. intake for the last 2 weeks. +Weight loss - weighed 122 lbs. over the summer and currently weighs 96 lbs. Has had an increasing number of bowel movements over the last few months. Has previously been able to manage her Crohn's with oral meds: Budesonide, Imodium, and Famotidine. She has been following with GI for the symptoms. Recently had a CT of her abdomen on 03/14 which showed inflammation of the small bowel and the adjacent sigmoid colon that is consistent with Crohn's disease, stable from 11/06/2020 with no significant changes. GI concerned that oral medication is no longer effective as sole treatment, patient was sent to the ER for further workup and IV steroids. Orders placed for pre-testing to place patient on a biologic. Currently endorsing diffuse abdominal pain, abdominal distension, and diarrhea with oral intake of food or liquids. Denies any current fever, chest pain, shortness of breath. No bright red blood in her stool. Chronically dark stools due to iron supplementation. Of note, patient was also seen on 03/16 for a right-sided headache with radiation into her neck. Patient states that when she has had unilateral headaches in the past it was associated with a stroke. Patient was discharged home with tizanidine, ibuprofen, Bentyl. Headache was attributed to cervical muscle strain. Patient continues to deny any neuro deficits or recurrent headache. Review of Systems Review of Systems: All systems reviewed & are unremarkable except as noted in HPI and below PMFSH Past Medical History Medical History (Updated 03/18/23 @ 22:05 by Tiny Lynn APRN) Crohn's disease CVA (cerebral vascular accident) x2, w/ residual L hand deficit - loss of dexterity and has since regained complete (subjective) function. Gastroesophageal reflux disease HENRRY (iron deficiency anemia) Osteoporosis Surgical History Surgical History History of appendectomy History of bowel resection History of cholecystectomy History of colonoscopy History of hysterectomy History of ventral hernia repair Family History Family History Mother Hypertension Father Hypertension Daughter Hypertension Sibling Hypertension Social History Social History Social History: The patient lives alone in an apartment. 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 She smokes perhaps 3 cigarettes a day. No alcohol or illicit substance abuse. She designates her daughters, Chloe Schwarz and Josephine Castañeda, as her surrogate decision makers. Code status: Full Code. Years smoked: 58 Smoking status: Current every day smoker Tobacco type: cigarettes Alcohol intake: unknown Substance use: never Substance use type: marijuana Lack of Transportation: No Lack of Food: Never True Current Housing: I Have Housing Concerned About Future Housing: No Difficulty Paying Gas/Electric Bills: No Difficulty Paying for Meds: No Currently Unemployed: No Education: Decline to Answer Difficulty w/ Childcare or Family Care: No Living arrangements: with family Spiritual care concerns: No Meds Home Medications and Allergies Home Medications Medication Instructions Recorded Confirmed Type famotidine 20 mg tablet (Pepcid) 20 mg PO DAILY 11/10/20 03/18/23 History ferrous sulfate 325 mg (65 mg 325 mg PO BID 01/15/22 03/18/23 History iron) tablet,delayed release cyanocobalamin (vitamin B-12) 1,000 mcg PO DAILY 03/12/22
[2023-03-18] MEDS: metroNIDAZOLE 500 MG/ISO 100ML 500 MG/100 ML BAG 100 MG IVPB (21:05)
[2023-03-18] MEDS: DICYCLOMINE HCL 10 MG CAPSULE 20 MG PO (21:05)
[2023-03-18] MEDS: methylPREDNISolone SOD SUCC 125 MG VIAL 40 MG IV PUSH (21:05)
[2023-03-19] MEDS: SODIUM CHLORIDE 0.9% IV 1,000 ML 125 ML IV CONT ×3 (00:35→19:29)
[2023-03-19 02:39] LABS: IFOB Positive Control Positive; Immunochemical Fecal Occult Bl Positive (N)
[2023-03-19 06:00] VITALS: BP 128/56; PULSE 81; RESP 16; TEMP 36.7; O2SAT 99
[2023-03-19] MEDS: metroNIDAZOLE 500 MG/ISO 100ML 500 MG/100 ML BAG 100 MG IVPB ×3 (06:05→21:24)
[2023-03-19] MEDS: methylPREDNISolone SOD SUCC 125 MG VIAL 40 MG IV PUSH ×3 (06:05→21:24)
--- NOTE | 2023-03-19 06:50 | WPDGIPROGNO ---
Progress Note: A&P Assessment and Plan (1) Abdominal pain: Qualifiers: Abdominal location: generalized Qualified Code(s): R10.84 - Generalized abdominal pain Code(s): R10.9 - Unspecified abdominal pain Status: Acute Assessment and Plan: She is having increasing abdominal pain for the past few weeks.? Is uncomfortable when I saw her a month ago and has not really gotten any better since then.? She went to emergency room 2 days ago with headache and abdominal pain.? They were more focused on had a because of her history of strokes.? It sent home with dicyclomine but she states this has not done anything for her pain. On examination she is quite tender. she received morphine in emergency room which has helped somewhat. 03/19 pain has decreased today with the help of morphine and probably steroids. She is willing to try eating. (2) Exacerbation of Crohn's disease: Code(s): K50.90 - Crohn's disease, unspecified, without complications Status: Acute Assessment and Plan: Her fecal calprotectin has been gradually increasing.? Was [address] scan of the abdomen done last week revealed inflammation of the small bowel and adjacent sigmoid colon but did not reveal any significant changes since 2020 and did not show fistulas.? She has had a prior resection and has an ileocolic anastomosis. She has a history of fistulizing this may be occurring considering how watery her stools are. Fistula was not seen on recent CT scan but must be considered. (3) Elevated fecal calprotectin: Code(s): R19.5 - Other fecal abnormalities Status: Acute Assessment and Plan: Her last level 644. I will repeat it here and suspected is much higher. (4) Chronic diarrhea: Code(s): K52.9 - Noninfective gastroenteritis and colitis, unspecified Status: Acute Assessment and Plan: She has chronic diarrhea which has become much worse recently. I will begin Imodium. Will also check calprotectin level. (5) Crohn's disease of colon with fistula: Code(s): K50.113 - Crohn's disease of large intestine with fistula Status: Acute Assessment and Plan: she has history of fistulas and with her watery diarrhea I am concerned about recurrence. Recent CT scan did not show that but I think it is a significant possibility. She will need a biologic. (6) HENRRY (iron deficiency anemia): Qualifiers: Iron deficiency anemia type: unspecified iron deficiency Qualified Code(s): D50.9 - Iron deficiency anemia, unspecified Code(s): D50.9 - Iron deficiency anemia, unspecified Status: Acute Assessment and Plan: Hemoglobin today is 9.7. She usually runs close to 11. Stool is occult blood positive. Fecal calprotectin is pending. Plan Intravenous fluids. Bowel rest except for liquids initially. Pain management Begin IV steroids and metronidazole We will obtain serology for hepatitis and also check TB status in preparation for starting biologic therapy Subjective Date/time seen: 03/19/23 06:50 her abdominal pain has subsided with the help of medication. He would like to try eating this morning. She still has very loose stools but they are less frequent since starting loperamide. I discussed with her the fact that we are obtaining labs in preparation for starting her on a biologic which hopefully can be started TIKA. Exam Const: General: cooperative, ill appearing and thin Nutritional Appearance: thin Orientation/consciousness: patient oriented x3 HENMT: Head: normal to inspection Ears: hearing grossly normal bilaterally Mouth: Yes Normal oral and palatal mucosa present Eyes: General: appearance normal, both eyes and all related structures Neck: Neck: normal visual inspection Chest: Chest palpation & inspection: normal inspection of the chest Resp: Effort & Inspection: normal respiratory effort Auscultation: clear to
[2023-03-19 06:59] LABS: Hematocrit 29.8 % (37.0-47.0); Hemoglobin 8.7 g/dL (12.0-15.0); Mean Corpuscular HGB Conc 29.2 g/dl (32-36); Mean Corpuscular Hemoglobin 28.2 pg (26-34); Mean Corpuscular Volume 96.8 fl (80-100); Mean Platelet Volume 9.2 fl (7.4-10.4); Platelet Count Result 320 k/mm3 (150-375); Red Blood Count 3.08 M/mm3 (4.2-5.4); Red Cell Distribution Width 14.6 % (11.5-14.5); White Blood Count 3.4 K/mm3 (4.5-10.0)
[2023-03-19 07:05] LABS: Alanine Aminotransferase 13 U/L (6-35); Albumin Level 2.8 g/dL (3.5-5.1); Alkaline Phosphatase 76 U/L (38-126); Anion Gap 7 mmol/L (8-16); Aspartate Amino Transferase 19 U/L (14-36); Bilirubin,Total 0.4 mg/dL (0.2-1.3); Blood Urea Nitrogen 16 mg/dL (7-17); Calcium 8.7 mg/dL (8.4-10.2); Carbon Dioxide 26 mmol/L (22-30); Chloride 106 mmol/L (98-107); Estimated CRCL calculation 41 ml/min; Estimated Glomerular Filt Rate > 60; Glucose 126 mg/dL (65-110); Magnesium 1.7 mg/dL (1.6-2.3); Sodium 139 mmol/L (137-145)
[2023-03-19 07:55] LABS: Band Neutrophils Percent 20 % (0-6); Neutrophils Absolute Manual 2.68 K/mm3 (1.7-7.2); Neutrophils Percent Manual 59 % (46-73); Total Cells Counted 100
[2023-03-19 07:56] LABS: Lymphocytes Absolute Manual 0.54 K/mm3 (1.1-4.5); Lymphocytes Percent Manual 16 % (18-44); Monocytes Absolute Manual 0.17 K/mm3 (0.1-0.90); Monocytes Percent Manual 5 % (3-9); Platelet Estimate Adequate (Adequate)
[2023-03-19 07:57] LABS: Anisocytosis 1+ (NORMAL); Ovalocytes 1+ (NORMAL); Poikilocytosis 1+ (NORMAL); Schistocytes None Seen (NORMAL)
[2023-03-19 07:58] LABS: Crenated RBC 1+ (NORMAL)
[2023-03-19] MEDS: FERROUS SULFATE 325 MG TABLET DR PO ×2 (09:22→17:38)
[2023-03-19] MEDS: CYANOCOBALAMIN 1,000 MCG TABLET 1000 MCG PO (09:22)
[2023-03-19] MEDS: LOPERAMIDE HCL 2 MG CAPSULE 4 MG PO ×2 (09:22→17:38)
[2023-03-19] MEDS: FAMOTIDINE 20 MG TABLET PO (09:22)
[2023-03-19] MEDS: DICYCLOMINE HCL 10 MG CAPSULE 20 MG PO ×4 (09:22→20:11)
[2023-03-19] MEDS: IBUPROFEN 400 MG TABLET PO ×3 (09:23→17:38)
[2023-03-19 11:02] VITALS: BMI 17.9
[2023-03-19 13:45] VITALS: BP 124/83; PULSE 76; RESP 18; TEMP 36.3; O2SAT 98
--- NOTE | 2023-03-19 17:46 | PM.IMPN ---
Progress Note: A&P Assessment and Plan (1) HENRRY (iron deficiency anemia): Qualifiers: Iron deficiency anemia type: unspecified iron deficiency Qualified Code(s): D50.9 - Iron deficiency anemia, unspecified Code(s): D50.9 - Iron deficiency anemia, unspecified Status: Acute (2) Crohn's disease of colon with fistula: Code(s): K50.113 - Crohn's disease of large intestine with fistula Status: Acute Plan stool occult positive. not sure this gives us any further insight regarding mgmt as she is having active crohn's flare... pain completely resolved. re-assess tomorrow. GI to lead mgmt on biologic and crohn's mgmt. monitor H & H full code stable. Subjective Date/time seen: 03/19/23 17:46 Interval history: NAOE. pt abdominal pain have completely resolved. she is sitting up eating mashed potatoes and beef without issue. continued with watery bowel movements. daughter and granddaughter at bedside as well Review of Systems Review of Systems: All systems reviewed & are unremarkable except as noted in HPI and below Exam Const: General: comfortable and no acute distress Resp: Effort & Inspection: normal respiratory effort Auscultation: clear to auscultation bilaterally Cardio: Rate: regular rate Rhythm: regular rhythm Heart sounds: no gallops, no murmurs and no rubs GI: Inspection: distended GI Palp: Yes Soft to palpation and No Tenderness to palpation present (GI) Auscultation: normal bowel sounds Extrem: General: no edema Objective Data Vital Signs Vital Signs: Vital Signs - 24 hr 03/18/23 21:21 03/18/23 20:00 03/19/23 06:00 Temperature 97.5 F L 98.0 F Pulse Rate 84 81 Respiratory Rate 14 16 Blood Pressure 110/67 128/56 L Pulse Oximetry 99 99 Oxygen Delivery Room Air 03/19/23 13:45 Temperature 97.4 F L Pulse Rate 76 Respiratory Rate 18 Blood Pressure 124/83 Pulse Oximetry 98 Oxygen Delivery Intake/Output Intake/Output: Intake & Output 03/16/23 03/17/23 03/18/23 03/19/23 23:59 23:59 23:59 23:59 Intake Total 2540 3310 Balance 2540 3310 Meds/Results Medications: Active Medications Generic Name Dose Route Start Last Admin Trade Name Freq PRN Reason Stop Dose Admin Budesonide 9 mg 03/19/23 09:00 Budesonide 3 Mg Cap.Sr.24h PO DAILY ANAIS Cyanocobalamin 1,000 mcg 03/19/23 09:00 03/19/23 09:22 Cyanocobalamin 1,000 Mcg Tablet PO 1,000 mcg DAILY ANAIS Administration Dicyclomine HCl 20 mg 03/18/23 21:00 03/19/23 17:37 Dicyclomine Hcl 10 Mg Capsule PO 20 mg QID ANAIS Administration Famotidine 20 mg 03/19/23 09:00 03/19/23 09:22 Famotidine 20 Mg Tablet PO 20 mg DAILY ANAIS Administration Ferrous Sulfate 325 mg 03/19/23 09:00 03/19/23 17:38 Ferrous Sulfate [address] PO 325 mg BID ANAIS Administration Sodium Chloride 1,000 mls @ 125 mls/hr 03/18/23 12:55 03/19/23 09:21 Normal Saline Iv IV CONT 125 mls/hr .Q8H ANAIS Administration Metronidazole 500 mg in 100 mls @ 100 mls/hr 03/18/23 20:00 03/19/23 12:56 Flagyl 500 Mg/Iso Soln 100 Ml IVPB 100 mls/hr Q8HR ANAIS Administration Ibuprofen 400 mg 03/19/23 09:00 03/19/23 17:38 Ibuprofen 400 Mg Tablet PO 400 mg TID ANAIS Administration Loperamide HCl 4 mg 03/18/23 16:15 03/19/23 17:38 Loperamide Hcl 2 Mg Capsule PO 4 mg Q6H PRN Administration LOOSE STOOL Methylprednisolone Sodium Succinate 40 mg 03/18/23 22:00 03/19/23 12:55 Methylprednisolone Sod Succ 125 Mg Vial IV PUSH 40 mg Q8HR ANAIS Administration Miscellaneous Information 1 each 03/18/23 00:01 Budesonide Is Home Med. Patient Has Methylprednisolone Current Order. Please Verify If Ho XX 04/17/23 00:00 CLARIFY ANAIS Morphine Sulfate 4 mg 03/18/23 12:51 Morphine Sulfate (*Crx) 4 Mg/Ml Inj IV PUSH Q2H PRN Pain Rated 7-10 Morphine Sulfate 2 mg 03/18/23 22:26 Morphine Sulfate (*Crx) 2 Mg/Ml Inj
[2023-03-19 19:42] VITALS: PULSE 76; RESP 18; O2SAT 98
[2023-03-19 20:22] VITALS: BP 127/74; PULSE 79; RESP 17; TEMP 36.9; O2SAT 98
[2023-03-20] MEDS: SODIUM CHLORIDE 0.9% IV 1,000 ML 125 ML IV CONT (03:36)
[2023-03-20] MEDS: metroNIDAZOLE 500 MG/ISO 100ML 500 MG/100 ML BAG 100 MG IVPB (05:10)
[2023-03-20] MEDS: methylPREDNISolone SOD SUCC 125 MG VIAL 40 MG IV PUSH (05:10)
[2023-03-20 05:17] VITALS: BP 145/76; PULSE 76; RESP 17; TEMP 36.6; O2SAT 98
--- NOTE | 2023-03-20 06:18 | PC.NURSE ---
Addendum entered by Spring Fiore RN 03/20/23 06:19: wrong pt Original Note: pt states suppository effective multiple small bowels throughout the night reported by patient this morning.
--- NOTE | 2023-03-20 06:39 | PC.NURSE ---
Md Gu stated pt to discharge home, do not need to restart IV at this time.
--- NOTE | 2023-03-20 06:54 | WPDGIPROGNO ---
Progress Note: A&P Assessment and Plan (1) Abdominal pain: Qualifiers: Abdominal location: generalized Qualified Code(s): R10.84 - Generalized abdominal pain Code(s): R10.9 - Unspecified abdominal pain Status: Acute Assessment and Plan: She is having increasing abdominal pain for the past few weeks.? Is uncomfortable when I saw her a month ago and has not really gotten any better since then.? She went to emergency room 2 days ago with headache and abdominal pain.? They were more focused on had a because of her history of strokes.? It sent home with dicyclomine but she states this has not done anything for her pain. On examination she is quite tender. she received morphine in emergency room which has helped somewhat. 03/19 pain has decreased today with the help of morphine and probably steroids. She is willing to try eating. 03/20 she is tolerating her diet and is willing to go home today on oral meds. (2) Exacerbation of Crohn's disease: Code(s): K50.90 - Crohn's disease, unspecified, without complications Status: Acute Assessment and Plan: Her fecal calprotectin has been gradually increasing.? Was [address] scan of the abdomen done last week revealed inflammation of the small bowel and adjacent sigmoid colon but did not reveal any significant changes since 2020 and did not show fistulas.? She has had a prior resection and has an ileocolic anastomosis. She has a history of fistulizing this may be occurring considering how watery her stools are. Fistula was not seen on recent CT scan but must be considered. (3) Elevated fecal calprotectin: Code(s): R19.5 - Other fecal abnormalities Status: Acute Assessment and Plan: Her last level 644. I will repeat it here and suspected is much higher. (4) Chronic diarrhea: Code(s): K52.9 - Noninfective gastroenteritis and colitis, unspecified Status: Acute Assessment and Plan: She has chronic diarrhea which has become much worse recently. I will begin Imodium. Will also check calprotectin level. (5) Crohn's disease of colon with fistula: Code(s): K50.113 - Crohn's disease of large intestine with fistula Status: Acute Assessment and Plan: she has history of fistulas and with her watery diarrhea I am concerned about recurrence. Recent CT scan did not show that but I think it is a significant possibility. She will need a biologic. The plan is to discharge her on prednisone, 40 mg a day. We will apply to get her on Humira hopefully can get that started within a week or 2. (6) HENRRY (iron deficiency anemia): Qualifiers: Iron deficiency anemia type: unspecified iron deficiency Qualified Code(s): D50.9 - Iron deficiency anemia, unspecified Code(s): D50.9 - Iron deficiency anemia, unspecified Status: Acute Assessment and Plan: Hemoglobin today is 9.7. She usually runs close to 11. Stool is occult blood positive. Fecal calprotectin is pending. Plan We will send her home on prednisone, 40 mg per day and metronidazole 500 mg 3 times a day. Our office is working on getting her approved for Humira. Subjective Date/time seen: 03/20/23 06:54 she has not required pain medication for at least 24 hours. She is tolerating regular diet. IV came out. I think that we can leave the IV out and start oral meds. She should be able to get out today. Exam Const: General: cooperative, healthy appearing and thin Nutritional Appearance: thin Orientation/consciousness: patient oriented x3 HENMT: Head: normal to inspection Ears: hearing grossly normal bilaterally Mouth: Yes Normal oral and palatal mucosa present Eyes: General: appearance normal, both eyes and all related structures Neck: Neck: normal visual inspection Chest: Chest palpation & inspection: normal inspection of the chest Resp: Effort & Inspection: normal respiratory effo
[2023-03-20 06:58] LABS: Hematocrit 25.4 % (37.0-47.0); Hemoglobin 7.7 g/dL (12.0-15.0); Mean Corpuscular HGB Conc 30.3 g/dl (32-36); Mean Corpuscular Hemoglobin 28.2 pg (26-34); Mean Platelet Volume 8.9 fl (7.4-10.4); Platelet Count Result 344 k/mm3 (150-375); Red Blood Count 2.73 M/mm3 (4.2-5.4); Red Cell Distribution Width 14.6 % (11.5-14.5); White Blood Count 4.5 K/mm3 (4.5-10.0)
[2023-03-20 07:18] LABS: Anion Gap 11 mmol/L (8-16); Blood Urea Nitrogen 20 mg/dL (7-17); Calcium 7.9 mg/dL (8.4-10.2); Carbon Dioxide 20 mmol/L (22-30); Chloride 111 mmol/L (98-107); Estimated CRCL calculation 36 ml/min; Estimated Glomerular Filt Rate > 60; Glucose 150 mg/dL (65-110); Magnesium 1.6 mg/dL (1.6-2.3); Potassium 3.4 mmol/L (3.4-5.0); Sodium 142 mmol/L (137-145)
[2023-03-20 07:54] LABS: Total Cells Counted 100
[2023-03-20 07:55] LABS: Band Neutrophils Percent 25 % (0-6); Lymphocytes Percent Manual 9 % (18-44); Monocytes Absolute Manual 0.27 K/mm3 (0.1-0.90); Monocytes Percent Manual 6 % (3-9); Neutrophils Absolute Manual 3.82 K/mm3 (1.7-7.2); Neutrophils Percent Manual 60 % (46-73); Ovalocytes 1+ (NORMAL); Platelet Estimate Adequate (Adequate); Poikilocytosis 1+ (NORMAL)
[2023-03-20 07:56] LABS: Schistocytes None Seen (NORMAL)
[2023-03-20] MEDS: FAMOTIDINE 20 MG TABLET PO (08:47)
[2023-03-20] MEDS: DICYCLOMINE HCL 10 MG CAPSULE 20 MG PO ×2 (08:47→12:48)
[2023-03-20] MEDS: IBUPROFEN 400 MG TABLET PO ×2 (08:47→12:48)
[2023-03-20] MEDS: predniSONE 20 MG TABLET 40 MG PO (08:47)
[2023-03-20] MEDS: CYANOCOBALAMIN 1,000 MCG TABLET 1000 MCG PO (08:47)
[2023-03-20] MEDS: FERROUS SULFATE 325 MG TABLET DR PO (08:47)
--- NOTE | 2023-03-20 13:43 | PC.NURSE ---
Addendum entered by Pilar Bustos RN 03/20/23 14:17: Pt discharged home with daughter. Pt was wheeled down to car by this RN. Pt independently got in care. Pt was monitored for any changes in status while here. Original Note: Pt is A&O4 female who has participated and contributed in plan of care. Pt denies any pain and states that she is feeling much better. Pt is anxious to discharge. Pt daughter coming to get her on discharge. Pt IV was removed prior to this shift. Will continue to monitor pt until discharge.
--- NOTE | 2023-03-20 13:44 | PM.DS ---
DS: Admitting Diagnosis Discharge Date 03/20/23 Admitting Diagnosis crohn's disease DS: Discharge Diagnosis Discharge Diagnosis (1) HENRRY (iron deficiency anemia): Qualifiers: Iron deficiency anemia type: unspecified iron deficiency Qualified Code(s): D50.9 - Iron deficiency anemia, unspecified Code(s): D50.9 - Iron deficiency anemia, unspecified Status: Acute (2) Decreased appetite: Code(s): R63.0 - Anorexia Status: Acute (3) Crohn's disease: Code(s): K50.90 - Crohn's disease, unspecified, without complications Status: Acute DS: Summary Hospital Course Hospital Course: 72F w/ PMH crohn's, GERD, HENRRY, CVA, osteoporosis presented with worsening abdominal pain, she was treated for crohn's flare/undertreated crohn's disease. given steroids. on 03/20 she is stable to go home as her abdominal pain is resolved. her loose stools are becoming more formed. dc with flagyl and prednisone. she is to follow up with Dr. Gu as they are setting her up for [facility]. full code More than 30 minutes spent on discharge planning and documentation. Time Spent with Patient Time attestation: Total time spent providing and/or coordinating discharge services: Exam Const: General: cooperative and no acute distress Resp: Effort & Inspection: normal respiratory effort Auscultation: clear to auscultation bilaterally Cardio: Rate: regular rate Rhythm: regular rhythm Heart sounds: S1 normal heart sound present and S2 normal heart sound present GI: GI Palp: No abdominal tenderness Auscultation: normal bowel sounds DS: Data Data Completed and Pending Labs on day of discharge: Labs from last 24 hours 03/20/23 06:33 WBC 4.5 RBC 2.73 L Hgb 7.7 L Hct 25.4 L MCV 93.0 MCH 28.2 MCHC 30.3 L RDW 14.6 H Plt Count 344 MPV 8.9 Immature Gran % (Auto) Not Reportable Neut % (Auto) Not Reportable Lymph % (Auto) Not Reportable [place] % (Auto) Not Reportable Eos % (Auto) Not Reportable Baso % (Auto) Not Reportable Lymph # (Auto) Not Reportable [place] # (Auto) Not Reportable Eos # (Auto) Not Reportable Baso # (Auto) Not Reportable Abs Immat Gran (auto) Not Reportable Absolute Neuts (auto) Not Reportable Absolute Nucleated RBC Not Reportable Total Counted 100 Neutrophils % (Manual) 60 Band Neutrophils % 25 H Lymphocytes % (Manual) 9 L Monocytes % (Manual) 6 Nucleated RBC % Not Reportable Abs Neuts (Manual) 3.82 Abs Lymphs (Manual) 0.40 L Abs Monocytes (Manual) 0.27 Platelet Estimate Adequate Poikilocytosis 1+ Ovalocytes 1+ Schistocytes None seen Sodium 142 Potassium 3.4 Chloride 111 H Carbon Dioxide 20 L Anion Gap 11 BUN 20 H Creatinine 0.80 Estim Creat Clear Calc 36 Estimated GFR > 60 Glucose 150 H Calcium 7.9 L Magnesium 1.6 Discharge Plan Discharge Attending physician on discharge: Shannan Canela Consulting providers: Jacob Gu Discharging Clinician: Shannan Canela Patient Disposition: Home, Self-Care Activity: september shower Diet: heart healthy Patient Instructions: Antibiotic Form Stand Alone Forms: General Discharge Information Follow-up/Referrals: Jacob Gu MD [Physician] - 2 Weeks (follow up on crohn's) Roddy Josue MD [Primary Care Provider] - 4 Weeks Discharge Medications: New prednisone 20 mg Tablet 40 mg PO DAILY@0800 Qty: 30 0RF metronidazole 500 mg tablet 500 mg PO Q8H 14 Days Qty: 42 0RF Continued cyanocobalamin (vitamin B-12) 1,000 mcg capsule 1,000 mcg PO DAILY ferrous sulfate 325 mg (65 mg iron) Tablet,Delayed Release (Dr/Ec) 325 mg PO BID famotidine [Pepcid] 20 mg Tablet 20 mg PO DAILY tizanidine 2 mg capsule 2 mg PO Q8H PRN (Reason: muscle spasticity) Qty: 14 0RF ibuprofen 400 mg tablet 400 mg PO TID Qty: 20 0RF dicyclomine 20 mg tablet 20 mg PO QID Qty: 20 0RF Discontinued budesonide 3 mg capsule,delayed
[2023-03-22 13:24] LABS: NIL 0.01 IU/mL; Quantiferon TB Plus, 1T INDETERMINATE (NEGATIVE)
[2023-03-26 17:39] LABS: Calprotectin, Stool 5290 mcg/g
== END 2023-03-20 14:10 | disposition home or self-care (01) ==
LOC: ANHED 12:53 → ANH3MEDSUR 15:32
PROVIDERS: General Practice; Internal Medicine Gastroenterology; Student in an Organized Health Care Education/Training Program; Admitting Provider Family Medicine; Emergency Provider Student in an Organized Health Care Education/Training Program; PCP Emergency Medicine; Visit Provider Family Medicine
DX: K50.113 Crohn's disease of large intestine with fistula (principal); K52.9 Noninfective gastroenteritis and colitis, unspecified; K21.9 Gastro-esophageal reflux disease without esophagitis; R10.84 Generalized abdominal pain; M81.0 Age-related osteoporosis without current pathological fracture; Z23 Encounter for immunization; Z90.49 Acquired absence of other specified parts of digestive tract; M62.838 Other muscle spasm; F17.210 Nicotine dependence, cigarettes, uncomplicated; D50.9 Iron deficiency anemia, unspecified; I69.334 Monoplegia of upper limb following cerebral infarction affecting left non-dominant side; Z79.1 Long term (current) use of non-steroidal anti-inflammatories (NSAID); Z79.899 Other long term (current) drug therapy
CPT/HCPCS: 36415; 80048; 80053; 81001; 82274; 83605; 83690; 83735; 83993; 85025; 85652; 86140; 86480; 86706; 87340; 90471; 90694; 96361; 96365; 96366; 96375; 96376; 99285; A9270; G0008; G0378; J1836; J2270; J2920; J2930; J7030; J7512

== ENCOUNTER 2023-04-14 11:09 | Outpatient (CLI) | payer MEDICARE, MEDICAID, SELFPAY ==
--- NOTE | ~2023-04-14 | XR_ITS ---
Clinical Indication: Crohn's disease PA and lateral views of the chest: Comparison: None Findings: The lungs are clear, without evidence of focal consolidation or pleural effusion. Possible COPD. Cardiomediastinal silhouette is within normal limits. Bones and soft tissues are unremarkable. Impression: Clear lungs. Possible COPD. Reviewed, dictated and finalized at location M. GE DOOR SERVICE TECHNICIAN Impression: Clear lungs. Possible COPD.
== END 2023-04-14 11:10 | disposition home or self-care (01) ==
PROVIDERS: PCP Emergency Medicine; Visit Provider Internal Medicine Gastroenterology
DX: K50.113 Crohn's disease of large intestine with fistula (principal); R76.11 Nonspecific reaction to tuberculin skin test without active tuberculosis
CPT/HCPCS: 71046

== ENCOUNTER 2024-08-04 08:50 | Outpatient (CLI) | payer MEDICARE, MEDICAID, SELFPAY ==
--- NOTE | ~2024-08-04 | CT_ITS ---
CT of the Abdomen and Pelvis: Indication: Crohn's disease Technique: 2.5 mm axial scans were obtained through the abdomen and pelvis following intravenous adm inistration of 100 cc of Omnipaque 350. Dose reduction technique was used on this scan by utilizing a utomated exposure control and iterative reconstruction technique. The dose-length product (DLP) was 3 76.90 mGy-cm. COMPARISON: 03/14/2023 Findings: Scans through the lung bases demonstrate partially imaged irregular groundglass opacity in the posterior right lower lobe.. The liver, spleen, pancreas, and kidneys are within normal limits. Gallbladder probably absent. Bilat eral adrenal nodules under thickening are similar to prior exam, therefore most likely benign. There are atherosclerotic calcifications of the aorta. No lymphadenopathy. Somewhat loculated/matted small bowel loops are again present in the lower abdomen, with several dila marky small bowel loops present. There is a probable extensive wall thickening and minimal narrowing in this region as well. External fluid collection not completely excluded. Probable open midline wound of the umbilicus. No definite enterocutaneous fistula identified. Images through the pelvis were performed. Urinary bladder unremarkable. Status post hysterectomy. No pelvic ascites. Impression: Matted/loculated small bowel loops in the lower abdomen with some dilated loops and some areas of bow el wall thickening and luminal narrowing in this region. Findings compatible chronic Crohn's disease with areas of probable stricturing and mild resultant bowel distention. Appearance overall similar to prior exam, though there is some more distended small bowel as compared to prior exam, raising possi bility of new or worsening partial small bowel obstruction. Extraluminal fluid collection in this region is difficult to completely exclude, but felt to be less likely based on images following oral contrast. Suspected open wound at the umbilicus, without definite evidence for enterocutaneous fistula. Correla te clinically. Partially imaged irregular groundglass opacity right lower lobe. This could reflect pneumonia versus postinflammatory change. Stable adrenal nodules/thickening. Reviewed, dictated and finalized at [facility]. Impression: Matted/loculated small bowel loops in the lower abdomen with some dilated loops and some areas of bowel wall thickening and luminal narrowing in this region. Findings compatible chronic Crohn's disease with areas of probable stricturing and mild resultant bowel distention. Appearance overall similar to prior exam, though there is some more distended small bowel as compared to prior exam, rais ing possibility of new or worsening partial small bowel obstruction. Extraluminal fluid collection in this region is difficult to completely exclude , but felt to be less likely based on images following oral contrast. Suspected open wound at the umbilicus, without definite evidence for enterocuta neous fistula. Correlate clinically. Partially imaged irregular groundglass opacity right lower lobe. This could ref lect pneumonia versus postinflammatory change. Stable adrenal nodules/thickening.
[2024-08-04 09:22] LABS: Estimated Glomerular Filt Rate 34
--- OUTSIDE RECORDS SUMMARY | 2024-08-04 09:26 | XMS_ITS | CONTINUITY OF CARE DOCUMENT ---
Author Name hever kathleen Address Unknown Organization [facility] Address [address] [place] [address] Phone [phone] Care Team Providers Care Drupal Developer Name Role Phone Don Schaefer MD Unavailable [phone] JAIRON DEL CASTILLO MD Unavailable [phone] JAIRON DEL CASTILLO MD Unavailable [phone] PROBLEMS Condition Status Date Provider Notes CVA active Irwin Figueroa INSURANCE PROVIDERS Payer name Policy type / Coverage type [place] red republican ID A[employer] [facility] AD[employer] PLAN 2 (HMO-POS) Medicare [id number] HEALTHCARE AND FAMILY SERVICES Medicaid 0 [id number]
--- OUTSIDE RECORDS SUMMARY | 2024-08-04 09:26 | XMS_ITS | Clinical Summary ---
Author Organization [facility] Address [address] [place] [address] Care Team Providers Care Supervisor Unloading Name Role Phone Roberto Monzon MD Primary Care Provider [phone] Emerita Becker MD Unavailable [phone] Eran Saba MD Unavailable [phone] Roberto Monzon MD Unavailable [phone] Source Comments [facility],non-owned Affiliates and Associated Physician Practices is amultiple site organization consisting of ambulatory clinics and hospital sitesin [place], [place], [place] and [place]. This disclosure is being madepursuant to the Care Everywhere program and may not contain all information available regarding this patient. Last updated 18.[facility] Allergies Active Allergy Reactions Criticality Noted Date Comments Penicillins Skin Reactions,Itching Medium 11/26/2016 Medications * Be aware that medications may not be up to date on this document. Alwaysverify current medications with the patient. Medication Sig Dispensed Refills Start Date End Date Status Multiple Vitamins-Mineral s (CENTRUM SILVER 50+WOMEN) TABSIndications: SUPPLEMENT Take 1 tablet by mouth DAILY. Indications: SUPPLEMENT 7 Active ondansetron, disintegrating, (Zofran ODT) 4 MG tablet Take 1 (one) tablet by mouth every 6 hours as needed for Nausea/Vomiting Allow tablet to dissolve on the tongue 20 tablet 4 Active ferrous sulfate 325 (65 FE) MG tablet Take 1 (one) tablet by mouth once daily Active nystatin (Mycostatin) 460842 UNIT/GM powder Apply to affected area 3 times daily 1 g 4 Active varenicline (Chantix Continuing Month Robinson) 1 MG tabletIndication s:Smoking Cessation Therapy Take 1 (one) tablet by mouth 2 times daily Reasons: Treatment to Stop Smoking 60 tablet 4 4 Active Gauze Pads & Dressings (Abdominal Pad) 8 X10 PADSIndications: Crohn's disease of small intestine with fistula (HCC),Entero-ent jim fistula Use 1 Units as directed Enterocutaneous fistula, Crohn's disease 360 Each 4 Active acetaminophen (Tylenol) 500 MG tabletIndication s:Pain Take 1 (one) tablet by mouth every 4 hours as needed Maximum allowable Acetaminophen amount = 4 Grams (4000 mg) / 24 hours. Reasons: Pain 4 Active apixaban (Eliquis) 5 MG tabletIndication s:Pulmonary Embolism,embolis m Take 1 (one) tablet by mouth 2 times daily Reasons: Blockage of Blood Vessel to Lung by a Particle, embolism 60 tablet 2 4 Active melatonin 3 MG tablet Take 2 (two) tablets by mouth nightly as needed 60 tablet 3 4 Active ZINC OXIDE, TOPICAL, (Secura Protective) 10 %Indications:[place] Finishing Foreman hn's disease of both small and large intestine with fistula (HCC) Apply to affected area once daily 50 g 1 5 Active clotrimazole (Lotrimin AF) 1 % creamIndications :Crohn's disease of both small and large intestine with fistula (HCC) Apply to affected area 3 times daily For 30 days 5 Active loperamide (Imodium) 2 MG capsuleIndicatio ns:Diarrhea, unspecified type Take 1 (one) capsule by mouth 2 times daily 120 capsule 2 5 12/05/19 25 Active risankizumab-rza a 360 MG/2.4ML SOCT Inject 2.4 mL subcutaneously Every 8 Weeks 2.4 mL 5 5 Active risankizumab-rza a (Skyrizi) 360 MG/2.4ML SOCTIndications: Crohn's Disease Inject 2.4 mL subcutaneously every 28 days Inject 2.4 mL subcutaneously every 4 weeks Reasons: Crohn's Disease 2.4 mL 5 4 07/23/19 25 Discontinu ed(Dose Adjustment ) Active Problems Patient Care Coordination No te Formatting of this note migh t be different from the original. 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 (AFLURIA, FLUZONE TRIVALENT; 6MO+) (IIV3) 03/15/2019 COVID PFIZER 12+YR 30MCG/0.3mL 01/16/2024 Covid Pfizer primary Monovalent 12+ yr 0.3ml 10/10/2021 Covid Pfizer primary monovalent 12+ yr 0.3mL Purple cap 07/04/2020, 07/25/2020 FLU VACCINE TRI IIV3 SPLIT IM (FLUVIRIN) 05/15/2013 INFLUENZA VACCINE, ADJUVANTED, QUADR. (FLUAD QUADRIVALENT; 65Y+) (AIIV4) 02/07/2020, 03/20/2023 INFLUENZA VACCINE, ADJUVANTED, TRIV. (FLUAD TRIVALENT; 65Y+) (AIIV3) 02/23/2019 INFLUENZA VACCINE, HIGH-DOSE, TRIV. (FLUZONE HIGH-DOSE TRIVALENT; 65Y+) (HD- IIV3) 01/16/2024 INFLUENZA VACCINE, QUADR. (FLUZONE; FLULAVAL; FLUARIX; AFLURIA QUADRIVALENT; 6MO+), 0.5 ML (IIV4) 05/03/2022 PNEUMOCOCCAL PPV, HISTORIC VACCINE 02/04/2017, 05/09/2020 RSV AREXVY 60YR+ 0.5ML 01/22/2024 TDAP (7yrs+) 10/14/2023 Zoster Hzv Vacc Recombinant Inj Im 05/09/2020, 09/18/2023 Advanced care planning: Advanced directive: discussed, patient and family to consider filling out , patient is DNR in event of cardiac arrest Assessment & Plan (04/13/2024 5:06 PM SHIP FITTER): -Vaccines up to date Assessment & Plan (10/18/2023 6:19 PM CDT): -Tdap today -RSV prescription given Iron deficiency anemia 09/18/2023 Overview (04/13/2024): Chronic anemia No hematemesis/hemoptysis/hematuria/hematochezia/melena. 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 Overview (01/31/2024): 05/2023 hospitalized with contained perforation into a ventral incisional hernia status post exploratory laparotomy and wide drainage of the fistula and status post repeat wound exploration and [place] drain placement on June 09, 2023, ongoing drainage, re admitted for prolonged course discharged 08/0608/14/2023 re-established care with GI; recommended starting Skyrizi 08/20/2023 general surgery outpatient follow up; recommended non-operative management with wound management and GI follow up 10/20/2023 re-admitted for sepsis; source thought to be intraabdominal versus line associated infection 2/2 PICC 10/2023 ongoing drainage unable to keep ostomy bags in place 01/2024: ongoing output, changing dressing 4-6 times a day Assessment & Plan (04/13/2024 4:54 PM SHIP FITTER): High out put fistula, episodes of dehydration, wound on abdomen -Oral hydration, repeat labs -Scheduled w/ colorectal surgery clinic -Continue w/ local wound care -Patient needs ABD pads, will send prescription Assessment & Plan (01/31/2024 2:32 PM CDT): High out put fistula, episodes of dehydration, wound on abdomen -Labs monthly for lytes, renal function -Wound care supplies Severe protein-calorie malnutrition 06/27/2023 Overview (04/13/2024): Unable to maintain nutrition by PO due to high output fistulas Adm to [facility] 05/30-08/07/2023 discharged home on TPN via right upper extremity PICC 08/14/2023 re-established care with GI; recommended starting Skyrizi 08/20/2023 general surgery outpatient follow up; recommended non-operative management with wound management and GI follow up 10/20/2023 re-admitted for sepsis; source thought to be intraabdominal versus line associated infection 2/2 PICC 10/21/2023 right brachial vein PICC line removal 10/28/2023 left brachial vein PICC line placement, treated w/ vancomycin IV, ceftriaxone, metronidazole through 11/05/2023; oral vancomycin through 11/10/202310/2023: C diff infection- treated with Vancomycin. 11/2023: recurrent PICC line infection, BCx acenitomacter/enterobacter/pseudomonas, adm for IV antibiotics w/ oral vanc, PICC removed, discharged on cipro 12/2023 ED visit for dehydration, received IV fluids 04/2024: drinking 4-6 ensures along with 1 solid meal daily, weight has been stable Wt Readings from Last 3 Encounters: 04/13/24 49.4 kg (109 lb) 03/15/24 50.9 kg (112 lb 3.2 oz) 03/04/24 50 kg (110 lb 3.2 oz) Assessment & Plan (04/13/2024 4:51 PM SHIP FITTER): Maintaining weight w/ oral intake, nutritional supplements, recent labs w/ mild creatinine elevation -Discussed oral hydration -Will repeat labs in 1 week Assessment & Plan (10/18/2023 6:17 PM CDT): Continue home TPN w/ hh History of Clostridioides difficile colitis 05/06 Overview (11/20/2023): Most recently 10/2023 while on IV antibiotics, treated w/ oral vancomycin and fidaxomicin 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 Overview (04/13/2024): 04/2023: LUE thrombus, s/p hromboembolectomy of left subclavian, axillary, and brachial artery w/ Dr Moreno Taking Apixaban, no bleeding Assessment & Plan (04/13/2024 5:05 PM SHIP FITTER): History arterial thromboembolism -Continue w/ Apixaban Assessment & Plan (10/18/2023 6:17 PM CDT): No bleeding -Continue apixaban Crohn's disease with fistula 05/30/2023 Overview (04/13/2024): Disease: Fistulizing Crohn's disease Diagnosis: 2011- abdominal pain and diarrhea Mesalamine for years- diarrhea never got better 03/2023: LUE thrombus s/p thrombectomy 05/2023: Incarcerated hernia with perforation s/p surgical repair x2 , last was Jun 09, with non wound healing versus fistulizing disease. Hospitalized for 2 months, surgical recommendation NPO w/ TPN 08/14/2023 re-established care with GI; recommended started Skyrizi Following w/ [facility] GI Dr Becker Assessment & Plan (10/18/2023 6:19 PM CDT): High output from fistula, incontinence of stool -Ordered for incontinence pads CVA (cerebrovascular accident) 04/17/2023 Gastroesophageal reflux disease 04/25/2021 Pulmonary emphysema 03/13/2017 Resolved Problems Problem Noted Date Diagnosed Date Resolved Date Right ear impacted cerumen 03/04/2024 1 05/18/2023 Bacteremia due to Enterobacter species 11/26/2023 01/21/2024 Fistula 11/24/2023 01/21/2024 Leukocytosis, unspecified type 11/24/2023 01/21/2024 Transaminitis 11/24/2023 04/13/2024 Fever, unspecified fever cause 11/24/2023 01/21/2024 Bacteremia 10/28/2023 01/21/2024 Transaminitis 10/28/2023 11/20/2023 Severe sepsis 10/28/2023 11/20/2023 Fever, unspecified fever cause 10/20/2023 10/25/2023 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 0712/2023 Aspiration into airway, initial encounter 10/20/2023 11/20/2023 DEXTER (acute kidney injury) 07/08/2023 Acute encephalopathy 07/08/2023 024 Agitation 07/08/2023 08/14/2023 Thrombus 07/08/2023 08/25/2023 Postoperative complication o f skin involving drainage from surgical wound 07/04/2023 08/25/2023 Left leg swelling 05/31/2023 06/27/2023 Colitis 05/31/2023 09/18/2023 Generalized abdominal pain 05/31/2023 0 06/27/2023 Left arm swelling 05/30/2023 06/27/2023 Left hand pain 04/08/2023 06/27/2023 Ischemia of digits of hand 04/08/2023 0 11/20/2023 Chronic anemia 12/04/2021 11/20/2023 Stage 1 chronic kidney disease 04/25/2021 11/20/2023 Chronic obstructive pulmonary disease 03/13/2017 11/20/2023 Encounters Date Type Department Care Team Description 07/22/2024 Orders Only [facility] [address] [facility] [place] [address] Kevin Silva, RN 07/15/2024 Telephone [facility] [address] [place] [address] [phone] Kevin Silva, RN Follow-up 07/15/2024 Telephone [facility] - Nephrology [address] [place] [address] [phone] Jenny Vanessa, RN Rx Medication Issue 07/08/2024 Telephone [facility] [address] [place] [address] [phone] Kevin Silva, RN Follow-up 07/07/2024 Telephone [facility] [address] [place] [phone] Emerita Becker MD Follow-up 06/23/2024 Telephone [facility] [address] [place] [phone] Thelma Smith RN General (Call back ) 06/11/2024 Travel 06/08/2024 Orders Only [facility] - General Surgery [address] [place] [phone] Yani Beal MD Crohn's disease of small intestine with fistula ; Severe protein-calorie malnutrition 06/07/2024 11:30 AM SHIP FITTER [facility] [address] [place] [phone] Emerita Becker MD Crohn's disease of both small and large intestine with fistula (Primary Dx); Diarrhea, unspecified type 06/07/2024 Travel 05/31/2024 Telephone [facility] - Nephrology [address] [place] [phone] Becca Grant, LOS Follow-up 05/27/2024 8:30 AM SHIP FITTER [facility] Med [address] [place] [address] [phone] Enterocutaneous fistula (Primary Dx) 05/27/2024 Travel 05/26/2024 Travel 05/25/2024 Telephone [facility] - Internal Med [address] [facility] [place] [phone] Roberto Monzon MD [facility] 05/21/2024 Orders Only [facility] - Internal Medicine [address] [place] [phone] Roberto Monzon MD from Last 3 Months Immunizations Name Administration Dates Next Due INFLUENZA VACCINE, TRIV. (AF LURIA, FLUZONE TRIVALENT; 6MO+) (IIV3) 03/15/2019 COVID PFIZER 12+YR 30MCG/0.3mL 01/16/2024 Covid Pfizer primary Monovalent 12+ yr 0.3ml 12/2021 Covid Pfizer primary monoval ent 12+ yr 0.3mL Purple cap 07/25/2020,07/04/2020 FLU VACCINE TRI IIV3 SPLIT IM (FLUVIRIN) 014 INFLUENZA VACCINE, ADJUVANTE D, QUADR. (FLUAD QUADRIVALENT; 65Y+) (AIIV4) 03/20/2023,02/07/2020 INFLUENZA VACCINE, ADJUVANTE D, TRIV. (FLUAD TRIVALENT; 65Y+) (AIIV3) 02/23/2019 INFLUENZA VACCINE, HIGH-DOSE , TRIV. (FLUZONE HIGH-DOSE TRIVALENT; 65Y+) (HD-IIV3) 01/16/2024 INFLUENZA VACCINE, QUADR. (F LUZONE; FLULAVAL; FLUARIX; AFLURIA QUADRIVALENT; 6MO+), 0.5 ML (IIV4) 05/03/2022 PNEUMOCOCCAL PPV VACCINE 05/09/2020,02/04/2017 RSV AREXVY 60YR+ 0.5ML 01/22/2024 TDAP (7yrs+) 10/14/2023 Zoster Hzv Vacc Recombinant Inj Im 09/18/2023, Family History Medical History Relation Name Comments Alcohol abuse Brother 1 Status: Deceas ed Cancer - Colon Brother 2 Status: Alive COPD - Chronic Obstructive Pulmonary Disease Daughter 1 Status: Alive Hypertension Daughter 2 Status: Alive None Known Daughter 3 Status: Alive None Known Father Status: d None Known Mother Status: d Hypertension Sister 1 4 sisters Status: Alive Alcohol abuse Sister 2 Status: Alive None Known Sister 3 Status: d Relation Name Status Comments Brother 1 Brother 2 Daughter 1 Daughter 2 Daughter 3 Father Mother Sister 1 4 sisters Sister 2 Sister 3 Social History Tobacco Use Types Packs/Day Years Used Date Smoking Tobacco: Former Cigarettes Passive Smoke Exposure: Past Smokeless Tobacco: Never Tobacco Cessation:Counseling Given: Not Answered Comments:2-3 cigarrettes a day Alcohol Use Standard Drinks/Week Comments No 0 (1 standard drink = 0.6 oz pur e alcohol) OASIS D0700: Social Isolation Answer Da te Recorded Frequency of experiencing loneliness or isolatio n Never 11/01/2023 OASIS A1250: Transportation Answer Date Recorded Lack of Transportation (Medical) No 11/01/2023 Lack of Transportation (Non-Medical) No 11/01/2023 Patient Unable or Declines to Respond No 11/01/2023 OASIS B1300: Health Literacy Answer Anthony e Recorded Frequency of needing help to read materials from doctor or pharmacy Never 11/01/2023 AUDIT-C Answer Date Recorded Q1: How often do you have a drink containing alcohol? Never 12/19/2023 Q2: How many drinks containi ng alcohol do you have on a typical day when you are drinking? Patient does not drink Q3: How often do you have si x or more drinks on one occasion? Never 12/19/2023 Overall Financial Resource Strain (CARDIA) Answe r Date Recorded How hard is it for you to pa y for the very basics like food, housing, medical care, and heating? Not hard at all 11/24/2023 PHQ-2 Answer Date Recorded Patient Health Questionnaire-2 Score 2 08/21/2023 [facility] [place] Occupat ional [facility] - Occupational Stress Questionnaire Answer Date Recorded Do you feel stress - tense, restless, nervous, or anxious, or unable to sleep at night because your mind is troubled all the time - these days? Not at all 11/25/2023 Hunger Vital Sign Answer Date Recorded Within the past 12 months, y ou worried that your food would run out before you got the money to buy more. Never true 11/25/19 24 Within the past 12 months, t he food you bought just didn't last and you didn't have money to get more. Never true 11/25/2023 PRAPARE - Transportation Answer Date Re corded In the past 12 months, has l ack of transportation kept you from medical appointments or from getting medications? No 11/03 In the past 12 months, has l ack of transportation kept you from meetings, work, or from getting things needed for daily living? No 11/25/2023 Housing Stability Vital Sign Answer Anthony e Recorded In the last 12 months, was t here a time when you were not able to pay the mortgage or rent on time? No 11/25/2023 In the last 12 months, how many places have you lived? 1 11/25/2023 In the last 12 months, was t here a time when you did not have a steady place to sleep or slept in a jail (including now)? No 11/25/2023 Sex and Gender Information Value Date Recorded Sex Assigned at Not on file Gender Identity Female 10/10/2023 11:49 AM CDT Sexual Orientation Not on file Last Filed Vital Signs Vital Sign Reading Time Taken Comments Blood Pressure 87/55 06/07/2024 11:42 AM SHIP FITTER Pulse 93 06/07/2024 11:42 AM SHIP FITTER Temperature 36.7 C (98.1 F) 06/07/2024 11:42 AM SHIP FITTER Respiratory Rate 18 05/04/2024 9:57 AM SHIP FITTER Oxygen Saturation 100% 06/07/2024 11:42 AM SHIP FITTER Inhaled Oxygen Concentration 40% 06/09/2023 4 :18 PM SHIP FITTER Weight 49.1 kg (108 lb 3.2 oz) 06/07/2024 11:42 AM SHIP FITTER Height 154.9 cm (5' 1 ) 06/07/2024 11:42 AM SHIP FITTER Body Mass Index 20.44 06/07/2024 11:42 AM SHIP FITTER Plan of Treatment Upcoming Encounters Date Type Department Care Team (Late st Contact Info) Description 08/19/2024 12:00 PM CDT Office Visit [facility] - General Surgery [address] [facility] [place] [phone] Yani Beal MD [address] [place] [phone] 10/13/2024 11:30 AM CDT Office Visit [facility] - Internal Med [address] [place] [address], [place] [phone] Roberto Monzon MD [address] [place] [address] [address] [facility] [place] [address] 12/06/2024 11:30 AM CDT Office Visit [facility] - GI [address] [place] [phone] Emerita Becker MD [facility] [place] [phone] 03/08/2025 9:30 AM SHIP FITTER Testing Visit [facility] - ENT [address] [place] [address], [place] [phone] Hazel Franks, Amol [address] [place] [address] [address] [place] [address] 03/08/2025 10:00 AM SHIP FITTER Office Visit [facility] - ENT [address] [place] [phone] Luis E Mccormick MD [address] [place] [address] [place] [address] Health Maintenance Due Date Last Done Comments BONE DENSITY TESTING 1950 COLOGUARD (AGES 45-75) - COLON CA SCREENING 1950 COLON MONITORING 1948 COLONOSCOPY - COLON CA SCREENING 1948 CT COLONOGRAPHY - COLON CA SCREENING 1948 FIT - COLON CA SCREENING 1950 FLEX SIG - COLON CA SCREENING 1948 LIPID TESTING 1950 DEPRESSION SCREENING 05/05/2024 10/14/2023, 05/22/19 24 MEDICARE AWV CALENDAR YEAR 2024 10/14/2023 PNEUMOCOCCAL VACCINE 50+ (2 of 2 - PCV) 05/05/2025 05/09/2020, 02/04/2017 Postponed from 05/09/2021 (PCP Directed) DTAP/TDAP/TD VACCINES (2 - Td or Tdap) 10/13/2033 10/14/2023 ZOSTER VACCINE Completed 09/18/2023, 05/09/2020 HEPATITIS C SCREENING Completed 11/26/2023, 023 COVID-19 VACCINE Completed 01/16/2024, 12/2021, 07/25/2020, Additional history exists INFLUENZA VACCINE Completed 01/16/2024, , 05/03/2022, Additional history exists Respiratory Syncytial Virus (RSV) Vaccine Pt: or over 60 yrs Completed 01/22/2024 Colorectal Cancer Screening Discontinued HEPATITIS B VACCINE Aged Out No longe r eligible based on patient's age to complete this topic HIB VACCINE Aged Out No longer eligi ble based on patient's age to complete this topic HPV VACCINE Aged Out No longer eligi ble based on patient's age to complete this topic MAMMOGRAM Discontinued MENINGOCOCCAL (Group B) VACCINE SHARED DECISION-MAKING Aged Out No longer eligible based on patient's age to complete this topic MENINGOCOCCAL GROUPS A/C/Y/W VACCINE Aged Out No longer eligible based on patient's age to complete this topic Goals Goal Patient Goal Type Associated Problems Recent Progress Patient-Stated? Author Medication Management General On track( 025 11:37 AM SHIP FITTER) Marilia Butler, RN Note: Expected end date: ongoing Interventions: Take all medications as prescribed Let your doctor know right away about any changes in your medications Make sure to request a refill of your medication at least one week prior to your last dose Procedures Procedure Name Priority Date/Time Associated Diagnosis Comments RENAL FUNCTION PANEL 05/21/2024 12:30 PM SHIP FITTER HEPATITIS SCREEN ACUTE Routine 11/26/2023 9:53 AM CDT from Last 3 Months or Most Recently Relevant to Health Maintenance Results * (ABNORMAL) RENAL FUNCTION PANEL (05/21/2024 12:30 PM SHIP FITTER) Pathologist [facility] Glucose 96 65 - 99 mg/dL [facility] Comment: Fasting reference interval BUN 19 7 - 25 mg/dL [facility] Creatinine 0.99 0.60 - 1.00 mg/dL [facility] eGFR by Cystatin C 59(L) > OR = 60 mL/min/1. 73m2 [facility] BUN/Creatinine Ratio SEE NOTE: 6 - 22 (calc) [facility] Comment: Not Reported: BUN and Creatinine are within reference range. Sodium 141 135 - 146 mmol/L [facility] Potassium 3.9 3.5 - 5.3 mmol/L [facility] Chloride 103 98 - 110 mmol/L [facility] CO2 29 20 - 32 mmol/L [facility] Calcium 8.5(L) 8.6 - 10.4 mg/dL [facility] Phosphorus 3.4 2.1 - 4.3 mg/dL [facility] Albumin 3.0(L) 3.6 - 5.1 g/dL [facility] Comment: Test Performed at: [facility] [phone] GENA JERNIGAN MD 05/21/2024 12:3 0 PM SHIP FITTER 05/21/2024 12:30 PM SHIP FITTER Roberto Monzon MD LAB - CHEMISTRY JAIME ROMERO [facility] Organization Address City/State/ZIP Co de Phone Number [address] [address] * HEPATITIS SCREEN ACUTE (11/26/2023 9:53 AM CDT) Pathologist [facility] Hepatitis A Virus Antibody IgM Non-react moo Non-reac tive 11/26/2023 11:34 AM [facility] Hepatitis B Virus Surface Antigen Non-react moo Non-reac tive 11/26/2023 11:[address] [facility] Hepatitis B Core Virus Antibody IgM Non-react moo Non-reac tive 11/26/2023 11:[address] [facility] Hepatitis C Antibody Non-react moo Non-reac tive 11/26/2023 11:[address] [facility] Comment:Hepatitis C Antibody screen indicates no serologic evidence of past or current infection with Hepatitis C Virus. Patients with unexplained liver disease who are immunocompromised or suspected of having acute Hepatitis C infection may benefit from Nucleic Acid Test (ANTHONY) for Hepatitis C Viral RNA to confirm Hepatitis C status. 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 11/25/2023 Advance Directives * Full Code (Latest Code Status on File) Date Activated Date Inactivated Comments 11/25/2023 2:40 AM 12/01/2023 6:06 PM * Full Code Date Activated Date Inactivated Comments 10/20/2023 11:49 PM 10/29/2023 6:47 PM * LIMITED RESUSCITATION-PRIOR AND AFTER ARREST Date Activated Date Inactivated Comments 07/05/2023 8:40 AM 2023 8:01 PM Question Answer Comments Limited Resuscitation: No Chest Compress ionNo Intubation, No Invasive VentilationNo Cardioversion, No Defibrilation, No External or Internal Pacemaker * Full Code Date Activated Date Inactivated Comments 07/05/2023 7:48 AM 07/05/2023 8:40 AM * Full Code Date Activated Date Inactivated Comments 05/31/2023 12:59 AM 07/03/2023 11:10 PM Care Teams Supervisor Unloading Relationship Specialty Start Date End Date Roberto Monzon MD [address] DIV OF [facility] [place] [address] PCP - General Internal Medicine 08/14/23 Roberto Monzon MD [address] DIV OF [facility] [place] [address] PCP - Attributed-[facility] RENNY SWENSON P4P 03/05/24 Emerita Becker MD [address] [place] [phone] Gastroenterology 10/14/23 Eran Saba MD [address] [place] [address] Surgeon Trauma Surgery 10/14/23
--- OUTSIDE RECORDS SUMMARY | 2024-08-04 09:26 | XMS_ITS | Clinical Summary ---
Author Organization [facility] Facility Address [address] [place] [address] Care Team Providers Care Assistant Speech Language Pathologist Name Role Phone Unavailable Primary Care Provider Unavailabl e Allergies Active Allergy Reactions Criticality Noted Date Comments Penicillins Itching,Other (see comments) Medium 2016 Medications * This document contains information received from the source organization and may not represent a complete record from that organization. alendronate (FOSAMAX) 70 MG tablet Take 1 tablet by mouth 1 (one) time per week 09/03/2018 Active famotidine (PEPCID) 20 MG tablet Take 1 tablet by mouth 1 (one) time each day Active Multiple Vitamins-Mineral s (Centrum Silver 50+Women) tablet Take 1 tablet by mouth 1 (one) time each day 11/26/2016 Active mesalamine (APRISO) 0.375 g 24 hr capsule Take 1.125 g by mouth 1 (one) time each day Do not crush or chew. Active Active Problems Problem Noted Date Diagnosed Date Chronic kidney disease stage 1 04/25/2021 Inflammatory bowel disease 04/25/2021 Cyst of kidney 04/25/2021 Gastroesophageal reflux disease 04/25/2021 Proteinuria 04/25/2021 Chronic obstructive pulmonary disease 03/13/2017 Immunizations Name Administration Dates Next Due Influenza TIV (IM) 03/15/2019 Family History Medical History Relation Comments Dementia Father Heart disease Father Kidney disease Sibling 1 Hypertension Sibling 2 Diabetes Sibling 3 Relation Status Comments Father Mother Sibling 1 Sibling 2 Sibling 3 Social History Tobacco Use Types Packs/Day Years Used Date Smoking Tobacco: Every Day Cigarettes Smokeless Tobacco: Never Alcohol Use Standard Drinks/Week Comments No 0 (1 standard drink = 0.6 oz pur e alcohol) Comments Unknown Sex and Gender Information Value Date Recorded Sex Assigned at Not on file Legal Sex Female 2:50 PM EDT Gender Identity Not on file Sexual Orientation Not on file Last Filed Vital Signs Vital Sign Reading Time Taken Comments Blood Pressure 90/60 2021 11:18 AM CDT Pulse 84 2021 11:18 AM CDT Temperature 36.1 C (96.9 F) 2021 11:18 AM CDT Respiratory Rate 16 2021 11:18 AM CDT Oxygen Saturation 95% 2021 11:18 AM CDT Inhaled Oxygen Concentration - - Weight 55.8 kg (123 lb) 2021 11:18 AM CDT Height 154.9 cm (5' 1 ) 2021 11:18 AM CDT Body Mass Index 23.24 2021 11:18 AM CDT Plan of Treatment Health Maintenance Due Date Last Done Comments Breast Cancer Screening 1948 Pneumococcal Vaccine: 65+ Ye ars (1 of 2 - PCV) 1954 Colorectal Cancer Screening: Annual FOBT 1997 Colorectal Cancer Screening: Colonoscopy 1997 Colorectal Cancer Screening: Sigmoidoscopy 1997 Influenza Vaccine (#1) 2024 03/15/2019 Hepatitis B Vaccine Aged Out No longe r eligible based on patient's age to complete this topic Insurance [facility]
--- OUTSIDE RECORDS SUMMARY | 2024-08-04 09:26 | XMS_ITS | Clinical Summary ---
Author Organization [facility] Adi Osuna Address [address] [place] [address] Care Team Providers Care Ironworker Machine Operator Name Role Phone Unavailable Primary Care Provider Unavailabl e Allergies Active Allergy Reactions Criticality Noted Date Comments Penicillins Itching,Other (See Comments),Rash,Unknown Medium 11/26/2016 Medications alendronate (FOSAMAX) 35 mg tablet TAKE 1 TABLET BY MOUTH WEEKLY 30 MINS BEFORE FIRST FOOD/BEVERA GE/MEDS OF THE DAY WITH PLAIN WATER 10/31/2021 Active famotidine (PEPCID) 20 mg tablet Take 1 Tablet by mouth daily. Active multivitamins-mi nerals-lutein (Centrum Silver) Tablet Take by mouth. Active budesonide (ENTOCORT EC) 3 mg Enteric Coated 24 hour capsule Take 3 mg by mouth daily. Active Active Problems Problem Noted Date Diagnosed Date Chronic anemia 12/04/2021 Family History Relation Name Status Comments Brother Father Mother Sister Social History Tobacco Use Types Packs/Day Years Used Date Smoking Tobacco: Every Day Tobacco Cessation:Ready to Q uit: Not Asked; Counseling Given: Not Answered Comments Unknown Sex and Gender Information Value Date Recorded Sex Assigned at Not on file Legal Sex Female 1:38 PM CDT Gender Identity Not on file Sexual Orientation Not on file Last Filed Vital Signs Vital Sign Reading Time Taken Comments Blood Pressure 128/79 12/25/2021 1:54 PM CDT Pulse 89 12/25/2021 1:54 PM CDT Temperature 36.2 C (97.2 F) 12/25/2021 1:54 PM CDT Respiratory Rate - - Oxygen Saturation 94% 12/25/2021 1:54 PM CDT Inhaled Oxygen Concentration - - Weight 52.6 kg (115 lb 14.4 oz) 12/25/2021 1:54 PM CDT Height 156.2 cm (5' 1.5 ) 12/25/2021 1:54 PM CDT Body Mass Index 21.54 12/25/2021 1:54 PM CDT Plan of Treatment Health Maintenance Due Date Last Done Comments DTAP/TDAP/TD VACCINES (1 - Tdap) 08/08/1967 PNEUMOCOCCAL VACCINE 50+ YEARS (1 of 2 - PCV) 08/07/18 68 COLORECTAL SCREENING 1993 Colorectal Cancer Screening 1993 FIT-DNA Q 3 years 1993 FIT/FOBT Q 1 year 1993 Flex Sig/CT Colonography Q 5 years 1993 ZOSTER VACCINE (1 of 2) 1998 OSTEOPOROSIS SCREENING 2013 RSV VACCINE (60+ or ) (1 - 1-dose 75+ series) 08/08/2023 INFLUENZA VACCINE (#1) 2023 03/15/2019 Insurance [place] [employer] [id number]
--- OUTSIDE RECORDS SUMMARY | 2024-08-04 09:26 | XMS_ITS | Clinical Summary ---
Author Organization [facility] Address [address] [place] [address] Care Team Providers Care Database Specialist Name Role Phone Unavailable Primary Care Provider Unavailabl e Allergies Active Allergy Reactions Criticality Noted Date Comments Penicillins Unknown 03/13/2017 Medications alendronate 70 MG tablet 09/03/2018 Active buPROPion SR 150 MG 12 hr tablet Take 1 tablet by mouth 2 (two) times daily. 07/02/2017 Active buPROPion SR 150 MG 12 hr tablet Take 150 mg by mouth 2 (two) times daily. 0 06/22/2018 Active cholestyramine (QUESTRAN) 4 GM/DOSE powder Activ e Loperamide HCl (IMODIUM A-D) 1 MG/7.5ML Liquid Acti ve famotidine (PEPCID) 20 MG tablet Active mesalamine ER (APRISO) 0.375 g CAPSULE SR 24 HR 24 hr capsule Active Multiple Vitamins-Mineral s (CENTRUM SILVER) Tab Active omeprazole 20 MG capsule Active Active Problems Problem Noted Date Diagnosed Date COPD (chronic obstructive pu lmonary disease) ([facility]) 03/13/2017 Pulmonary emphysema ([facility]) 03/13/2017 Crohn's disease ([facility]) 03/13/2017 History of CVA (cerebrovascular accident) 2016 Underweight 03/13/2017 Resolved Problems Problem Noted Date Diagnosed Date Resolved Date Encounter for preventive health examination 02/17/2017 01/14/2020 Social History Tobacco Use Types Packs/Day Years Used Date Smoking Tobacco: Never Assessed Comments Unknown Sex and Gender Information Value Date Recorded Sex Assigned at Not on file Legal Sex Female 8:42 AM CDT Gender Identity Not on file Sexual Orientation Not on file Last Filed Vital Signs Vital Sign Reading Time Taken Comments Blood Pressure 127/86 09/03/2017 10:22 AM CDT Pulse 87 09/03/2017 10:22 AM CDT Temperature - - Respiratory Rate - - Oxygen Saturation - - Inhaled Oxygen Concentration - - Weight 52.6 kg (116 lb) 09/03/2017 10:22 AM CDT Height 154.9 cm (5' 1 ) 07/02/2017 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 Body Mass Index 21.92 07/02/2017 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 Plan of Treatment Health Maintenance Due Date Last Done Comments Colorectal Cancer Screening Colonoscopy (10 Years) 1948 Pneumococcal Vaccine: 65+ Ye ars (1 of 2 - PCV) 1954 Hepatitis C 1966 DTaP, Tdap and Td Vaccines ( 1 - Tdap) 08/08/1967 Zoster Vaccines (1 of 2) 1998 Annual Medicare Wellness Visit 2013 Dexa Scan (General) 2013 RSV Immunization or 60+ Years (1 - 1-dose 75+ series) 08/08/2023 COVID-19 Vaccine ( - 2023-2 5 season) 2024 Meningococcal B Vaccine Aged Out No l onger eligible based on patient's age to complete this topic Meningococcal Vaccine Aged Out No elder heide eligible based on patient's age to complete this topic RSV Immunizations Under 20 Months Aged Out No longer eligible based on patient's age to complete this topic Insurance MEDICAID MEDICARE
--- OUTSIDE RECORDS SUMMARY | 2024-08-04 09:26 | XMS_ITS | Encounter Summary ---
Author Organization [facility] Health Address [address] [place] [address] Care Team Providers Care Senior Portfolio Manager Name Role Phone Roberto Monzon MD Primary Care Provider [phone] Emerita Becker MD Unavailable [phone] Eran Saba MD Unavailable [phone] Roberto Monzon MD Unavailable [phone] Encounter Details Date Type Department Care Team (Late st Contact Info) Description 12/02/2023 Transitional Care [facility] CARE COORDINATION [address] [place] [phone] Nat Asher, RN Social History Tobacco Use Types Packs/Day Years Used Date Smoking Tobacco: Former Cigarettes Passive Smoke Exposure: Past Smokeless Tobacco: Never Comments:2-3 cigarrettes a d ay Alcohol Use Standard Drinks/Week Comments No 0 [...] you have a drink containing alcohol? Never 11/24/2023 Q2: How many drinks containi ng alcohol do you have on a typical day when you are drinking? Patient does not drink Q3: How often do you have si x or more drinks on one occasion? Never 11/24/2023 Overall Financial Resource Strain (CARDIA) Answe r Date Recorded How hard is it for you to pa y for the very basics like food, housing, medical care, and heating? Not hard at all 11/24/2023 PHQ-2 Answer Date Recorded Patient Health Questionnaire-2 Score 2 08/21/2023 [facility] - Occupational Stress Questionnaire Answer Date Recorded [...] place to sleep or slept in a group home (including now)? No 11/25/2023 Sex and Gender Information Value Date Recorded Sex Assigned at Not on file Gender Identity Female 10/10/2023 11:49 AM CDT Sexual Orientation Not on file documented as of this encounter Functional Status Functional Status Response Date of Assess ment Is person deaf or have serious hearing difficult y? No 11/25/2023 Is person blind or have serious difficulty seein g? No 11/25/2023 Does person have serious dif ficulty walking/climbing stairs? No 11/25/2023 Does person have difficulty dressing/bathing? No 11/25/2023 Does person have difficulty doing errands alone? No 11/25/2023 Cognitive Status Response Date of Assessm ent Does person have difficulty concentrating/remembering/making decisions? No 11/25/2023 documented as of this encounter Plan of Treatment Upcoming Encounters Date Type Department Care Team (Late st Contact Info) Description 08/19/2024 12:00 PM CDT Office Visit [facility] - General Surgery [address] [place] [phone] Yani Beal MD [address] [place] [phone] 10/13/2024 11:30 AM CDT Office Visit [facility] - Internal Med [address] [place] [phone] Roberto Monzon MD [address] [place] [address] OF [facility] [address] 12/06/2024 11:30 AM CDT Office Visit [facility] - GI [address] [place] [address], [place] [address] Emerita Becker MD [address] [place] [address] 03/08/2025 9:30 AM SPOOL FIXER Testing Visit [facility] - ENT [address] [place] [address], [place] [address] Hazel Franks AuD [address] [place] [address] [address] [place] [address] 03/08/2025 10:00 AM SPOOL FIXER Office Visit [facility] - ENT [facility], [place] [phone] Luis E Mccormick MD [address] [place] [address] [address] [place] [address] documented as of this encounter Goals Goal Patient Goal Type Associated Problems Recent Progress Patient-Stated? 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 11/25/2023 documented as of this encounter Care Teams Senior Portfolio Manager Relationship Specialty Start Date End Date Roberto Monzon MD [address] [place] [address] [address] [place] [address] PCP - General Internal Medicine 08/14/23 Roberto Monzon MD [address] [place] [address] [address] [place] [address] PCP - [facility] RENNY SWENSON P4P 03/05/24 Emerita Becker MD [address] [place] [phone] Gastroenterology 10/14/23 Eran Saba MD [address] [place] [address] [address] [place] [address] Surgeon Trauma Surgery 10/14/23 documented as of this encounter
== END 2024-08-04 08:51 | disposition home or self-care (01) ==
LOC: ANHIMG 08:59
DX: K50.013 Crohn's disease of small intestine with fistula (principal)
CPT/HCPCS: 74177; Q9967

== ENCOUNTER 2024-12-02 06:51 | Emergency (ER) | payer MEDICARE, MEDICAID, SELFPAY ==
[2024-12-02] VITALS (7 sets, daily range): BP systolic 57–99; BP diastolic 48–58; PULSE 71–113; RESP 15–35; TEMP 35.2; O2SAT 91–100
--- OUTSIDE RECORDS SUMMARY | 2024-12-02 07:14 | XMS_ITS | Clinical Summary ---
Author Organization [facility] Adi Osuna Address [address] [place] [address] Care Team Providers Care Hotel Sales Manager Name Role Phone Unavailable Primary Care Provider [...] 1:54 PM CDT Height 156.2 cm (5' 1.5) 12/25/2021 1:54 PM CDT Body Mass Index 21.54 12/25/2021 1:54 PM CDT Plan of Treatment Health Maintenance Due Date Last Done Comments DTAP/TDAP/TD VACCINES (1 - Tdap) 08/08/1967 PNEUMOCOCCAL VACCINE 50+ YEARS (1 of 2 - PCV) 08/07/18 68 ZOSTER VACCINE (1 of 2) 1998 OSTEOPOROSIS SCREENING 2013 RSV VACCINE (60+ or ) (1 - 1-dose 75+ series) 08/08/2023 INFLUENZA VACCINE (#1) 2024 03/15/2019 Insurance [employer] [place]UST[place] [id number]
--- OUTSIDE RECORDS SUMMARY | 2024-12-02 07:15 | XMS_ITS | Clinical Summary ---
Author Organization [facility] Address [address] [place] [address] Care Team Providers Care Correctional Security Officer Name Role Phone Unavailable Primary Care Provider [...] Date COPD (chronic obstructive pu lmonary disease) ([facility] 03/13/2017 Pulmonary emphysema ([facility]) 03/13/2017 Crohn's disease ([facility]) 03/13/2017 History of CVA (cerebrovascular accident) 2016 [...] 10:22 AM CDT Height 154.9 cm (5' 1) 07/02/2017 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
--- OUTSIDE RECORDS SUMMARY | 2024-12-02 07:15 | XMS_ITS | Clinical Summary ---
Author Organization [facility] Facility Address [address] [place] [address] Care Team Providers Care Workgroup Leader Name Role Phone Unavailable Primary Care Provider [...] 04/25/2021 Chronic obstructive pulmonary disease 03/13/2017 Immunizations Immunization Administration Dates Next Due Influenza TIV (IM) [...] 11:18 AM CDT Height 154.9 cm (5' 1) 2021 11:18 AM CDT Body Mass Index 23.24 2021 11:18 AM CDT Plan of Treatment Health Maintenance Due Date Last Done Comments Pneumococcal Vaccine: 50+ Ye ars (1 of 2 - PCV) 08/08/1967 Influenza Vaccine (#1) 2025 03/15/2019 Hepatitis B Vaccine Aged Out No longe r eligible based on patient's age to complete this topic Insurance [facility]
--- OUTSIDE RECORDS SUMMARY | 2024-12-02 07:15 | XMS_ITS | Clinical Summary ---
Author Organization [facility] Address [address] [place] [address] Care Team Providers Care Crabber Name Role Phone Roberto Monzon MD Primary Care Provider [phone] Emerita Becker MD Unavailable [phone] Eran Saba MD Unavailable [phone] Roberto Monzon MD Unavailable [phone] Source Comments [facility],non-owned Affiliates and Associated Physician Practices is amultiple site organization consisting of ambulatory clinics and hospital sitesin [place], [place], [place] and [place]. This disclosure is being madepursuant to the Care Everywhere program and may not contain all information available regarding this patient. Last updated 18.[facility] Allergies Active Allergy Reactions Criticality Noted Date Comments Penicillins Skin Reactions,Itching Medium 11/26/2016 Medications * Be aware that medications may not be up to date on this document. Alwaysverify current medications with the patient. Gauze Pads & Dressings (Abdominal Pad) 8X10 PADSIndicatio ns:Crohn's disease of small intestine with fistula (HCC),Entero- enteric fistula Use 1 Units as directed Enterocutaneous fistula, Crohn's disease 360 Each 024 Active apixaban (Eliquis) 5 MG tabletIndicat ions:Pulmonar y Embolism,embo lism Take 1 (one) tablet by mouth 2 times daily Reasons: Blockage of Blood Vessel to Lung by a Particle, embolism 60 tablet 2 024 Active acetaminophen (Tylenol) 325 MG tablet Take 2 (two) tablets by mouth every 6 hours as needed Maximum allowable Acetaminophen amount = 4 Grams (4000 mg) / 24 hours. 30 tablet 025 Active nystatin (Mycostatin) 905852 UNIT/GM powder Apply to affected area 3 times daily 60 g 025 Active loperamide (Imodium) 2 MG capsuleIndica tions:Enteroc utaneous Fistula Take 2 (two) capsules by mouth 4 times daily for 30 days Reasons: Enterocutaneous Fistula 240 capsule 025 Active melatonin 3 MG tablet TAKE 1 TABLET BY MOUTH NIGHTLY NEEDED FOR INSOMNIA 90 tablet 1 025 Active melatonin 3 MG tablet Take 1 (one) tablet by mouth nightly as needed for Insomnia 30 tablet 025 2024 Discontinued Active Problems Patient Care Coordination No te Formatting of this note migh t be different from the original. 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 Overview (10/13/2024): 05/2023 hospitalized with contained perforation into a ventral incisional hernia status post exploratory laparotomy and wide drainage of the fistula and status post repeat wound exploration and Aaron drain placement on June 09, 2023, ongoing drainage, re admitted for prolonged course discharged 08/0608/14/2023 re-established care with GI; recommended starting Skyrizi 08/20/2023 general surgery outpatient follow up; recommended non-operative management with wound management and GI follow up 10/20/2023 re-admitted for sepsis; source thought to be intraabdominal versus line associated infection 06/06 PICC 10/2023 ongoing drainage unable to keep ostomy bags in place 01/2024: ongoing output, changing dressing 4-6 times a day 10/2024: 1 wk prior to visit, feelign unwell, low appetite, not eating and drinking much, output from fistulas has slowed down over last couple of days, has been feeling weak Assessment & Plan (10/13/2024 5:48 PM CDT): Hypotensive, low PO intake, history high output EC fistula, severely volume depleted, recommended patient go to ED for urgent evaluation, IV rehydration, workup Assessment & Plan (04/13/2024 4:54 PM TABLE GAMES SUPERVISOR): High out put fistula, episodes of dehydration, [...] due to high output fistulas Adm to [facility] 05/30-08/07/2023 discharged home on TPN via right upper extremity PICC 08/14/2023 re-established care with GI; recommended starting Skyrizi 08/20/2023 general surgery outpatient follow up; recommended non-operative management with wound management and GI follow up 10/20/2023 re-admitted for sepsis; source thought to be intraabdominal versus line associated infection / PICC 10/21/2023 right brachial vein PICC line [...] oz) Assessment & Plan (04/13/2024 4:51 PM TABLE GAMES SUPERVISOR): Maintaining weight w/ oral intake, nutritional supplements, [...] bleeding Assessment & Plan (04/13/2024 5:05 PM TABLE GAMES SUPERVISOR): History arterial thromboembolism -Continue w/ Apixaban Assessment [...] Aspiration into airway, initial encounter 10/20/2023 11/20/2023 History of tobacco use 08/25/202310/145 Overview (04/13/2024): 2-4 cigs/day since 23yo, never tried stopping, never tried medications, motivated to stop to help with wound healing 08/2023 started varenicline 09/2023 stopped tobacco use 04/2024 has not smoked for months Assessment & Plan (04/13/2024 4:54 PM TABLE GAMES SUPERVISOR): 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 Assessment & Plan (10/18/2023 6:18 PM CDT): 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 DEXTER (acute kidney injury) 07/08/2023 Acute encephalopathy [...] Encounters Date Type Department Care Team Description 11/18/2024 Refill [facility] 3S ICU [address] [place] [phone] Johann Restrepo, DO Med Change Request 11/04/2024 Refill [facility] - Internal [facility] [place] [phone] Roberto Monzon MD Refill Request 10/19/2024 Orders Only [facility] [address] [place] [phone] Marry Lam, Devonte 10/19/2024 Telephone [facility] [place] [address] Roberto Monzon MD [facility] 10/18/2024 Telephone [facility] Internal Med [facility] [place] [phone] Roberto Monzon MD Hospice Follow-up 10/13/2024 11:45 AM CDT - 10/18/2024 2:27 PM CDT Hospital Encounter [facility] 3S ICU [address] [place] [address] Nate Gutierres MD Garcia, MD Deonna Don Kene A, MD Mwangi, MD Estephania Perera, Tip Mitchell MD Emergency Medicine Discharge Disposition: Hospice:Home 10/13/2024 11:30 AM CDT Office Visit [facility] - Internal Med [facility] [place] [address] Roberto Monzon MD Crohn's disease of small intestine with fistula (HCC) (Primary Dx); Entero-enteric fistula 10/13/2024 Travel 10/13/2024 Orders Only [facility] GI [address] [place] [phone] Emerita Becker MD 10/12/2024 Orders Only [facility] [address] [place] [phone] Emerita Becker MD 10/08/2024 Telephone [facility] - Internal Med [address] [place] [phone] Roberto Monzon MD [facility]ly [facility], [facility]; Fistula Concerns 10/04/2024 Transitional Care [facility] CARE COORDINATION [address] [place] [address] Nat Asher, RN Transitions Of Care 09/29/2024 Telephone [facility] - Internal Med [address] [place] [phone] Roberto Monzon MD [facility], [facility] (PT) 09/22/2024 Telephone [facility] [place] [address] Roberto Monzon MD Home Health 09/21/2024 1:00 PM CDT Telemedicine [facility] - Clinical Pharmacy [address] [place] [phone] Reuben Fermin [facility] 09/21/2024 Orders Only [facility] [address] [place] [phone] Emerita Becker MD 09/20/2024 11:35 AM CDT - 09/20/2024 11:59 PM CDT Hospital Encounter [facility] LAB OP DRAW STATION [address] [place] [phone] Discharge Disposition: Home or Self Care 09/20/2024 10:00 AM CDT Office Visit [facility] [address] [place] [phone] Emerita Becker MD Crohn's disease of both small and large intestine with fistula (HCC) (Primary Dx) 09/20/2024 Orders Only [facility] [address] [place] [address] Sarah Brown APRN-VALERY 09/20/2024 Travel 09/07/2024 Transitional Care [facility] CARE COORDINATION [address] [place] [phone] Nat Asher, LOS Transitions Of Care 09/07/2024 Telephone [facility] Internal [facility] [address] [place] [phone] Roberto Monzon MD Referral Request 09/06/2024 Transitional Care [facility] CARE COORDINATION [address] [place] [phone] Nat Asher RN Transitions Of Care 09/06/2024 Refill [facility] - GI [address] [facility] [place] [address] Kevin Silva RN Erroneous encounter-disregard 08/31/2024 11:16 AM CDT - 09/03/2024 4:15 PM CDT Hospital Encounter [facility] 8S ACUTE [address] [place] [address] Clif Olivera MD Stanley, Chad, MD Kunnath, Paul V., MD Internal Medicine Discharge Disposition: Home or Self Care from Last 3 Months Immunizations Immunization Administration Dates Next Due INFLUENZA VACCINE, TRIV. [...] Past Smokeless Tobacco: Never Tobacco Cessation:Counseling Given: No Comments:2-3 cigarrettes a day Alcohol Use Standard [...] you have a drink containing alcohol? Never 10/13/2024 Q2: How many drinks containi ng alcohol do you have on a typical day when you are drinking? Patient does not drink Q3: How often do you have si x or more drinks on one occasion? Never 10/13/2024 Overall Financial Resource Strain (CARDIA) Answe r Date Recorded How hard is it for you to pa y for the very basics like food, housing, medical care, and heating? Not hard at all 10/13/2024 PHQ-2 Answer Date Recorded Patient Health Questionnaire-2 Score 6 10/13/2024 [facility] [place] - Occupational Stress Questionnaire Answer Date Recorded Do you feel stress - tense, restless, nervous, or anxious, or unable to sleep at night because your mind is troubled all the time - these days? To some extent 10/13/2024 Hunger Vital Sign Answer Date Recorded Within the past 12 months, y ou worried that your food would run out before you got the money to buy more. Never true 10/14/19 25 Within the past 12 months, t he food you bought just didn't last and you didn't have money to get more. Never true 10/13/2024 PRAPARE - Transportation Answer Date Re corded In the past 12 months, has l ack of transportation kept you from medical appointments or from getting medications? No 10/03 In the past 12 months, has l ack of transportation kept you from meetings, work, or from getting things needed for daily living? No 10/13/2024 Housing Stability Vital Sign Answer Anthony e [...] place to sleep or slept in a correction (including now)? No 11/25/2023 Housing Stability Vital Sign Answer Anthony e Recorded In the last 12 months, was t here a time when you were not able to pay the mortgage or rent on time? No 10/13/2024 In the past 12 months, how m any times have you moved where you were living? 0 10/13/2024 At any time in the past 12 m [facility], were you homeless or living in a correction (including now)? No 10/13/2024 Comments No Sex and Gender Information Value Date Recorded Sex Assigned at Not on file Legal Sex Female 5:22 PM TABLE GAMES SUPERVISOR Gender Identity Female 10/10/2023 11:49 AM CDT Sexual Orientation Not on file Last Filed Vital Signs Vital Sign Reading Time Taken Comments Blood Pressure 88/58 10/18/2024 2:00 PM CDT Pulse 99 10/18/2024 2:00 PM CDT Temperature 36.7 C (98.1 F) 10/18/2024 12:00 PM CDT Respiratory Rate 19 10/18/2024 2:00 PM CDT Oxygen Saturation 94% 10/18/2024 12:00 PM CDT Inhaled Oxygen Concentration 40% 06/09/2023 4 :18 PM TABLE GAMES SUPERVISOR Weight 52.6 kg (116 lb) 10/16/2024 4:00 AM CDT Height 157.5 cm (5' 2) 10/13/2024 11:33 AM CDT Body Mass Index 21.22 10/13/2024 11:33 AM CDT Plan of Treatment Upcoming Encounters Date Type Department Care Team (Late st Contact Info) Description 12/23/2024 1:00 PM CDT Office Visit [facility] [address] [place] [phone] Emeriat Becker MD [address] [place] [address] 03/08/2025 9:30 AM TABLE GAMES SUPERVISOR Testing Visit [facility] - ENT [address] [place] [phone] Hazel Franks AuD [address] [place] [address] [address] [place] [address] 03/08/2025 10:00 AM TABLE GAMES SUPERVISOR [facility] [address] [place] [phone] Luis E Mccormick MD [address] [place] [address] [place] [address] Health Maintenance Due Date Last Done Comments BONE DENSITY TESTING 1950 MEDICARE AWV CALENDAR YEAR 2024 10/14/2023 COVID-19 VACCINE ( season) 2024 01/16/2024, 10/10/2021, 07/25/2020, Additional history exists INFLUENZA VACCINE (#1) 2025 , 03/20/2023, 05/03/2022, Additional history exists PNEUMOCOCCAL VACCINE 50+ (2 of 2 - PCV) 05/05/2025 05/09/2020, 02/04/2017 Postponed from 05/09/2021 (PCP Directed) DTAP/TDAP/TD VACCINES (2 - Td or Tdap) 10/13/2033 10/14/2023 ZOSTER VACCINE Completed 09/18/2023, 05/09/2020 HEPATITIS C SCREENING Completed 11/26/2023, 023 Respiratory Syncytial Virus (RSV) Vaccine Pt: or over 60 yrs Completed 01/22/2024 DEPRESSION SCREENING Completed 10/13/2024, 10/14/2023, 05/22/2023 HEPATITIS B VACCINE Aged Out No longe r eligible based on patient's age to complete this topic HIB VACCINE Aged Out No longer eligi ble based on patient's age to complete this topic HPV VACCINE Aged Out No longer eligi ble based on patient's age to complete this topic MENINGOCOCCAL (Group B) VACCINE SHARED DECISION-MAKING Aged Out No longer eligible based on patient's age to complete this topic MENINGOCOCCAL GROUPS A/C/Y/W VACCINE Aged Out No longer eligible based on patient's age to complete this topic Goals Goal Patient Goal Type Associated Problems Recent Progress Patient-Stated? Author Medication Management General On track( 025 10:04 AM CDT) Marilia Butler, RN Note: Expected end date: ongoing Interventions: Take all medications as prescribed Let your doctor know right away about any changes in your medications Make sure to request a refill of your medication at least one week prior to your last dose Procedures Procedure Name Priority Date/Time Associated Diagnosis Comments PREPARE RBC LEUKOREDUCED UNIT Routine 10/16/2024 6:07 AM CDT TYPE + SCREEN PANEL Routine 10/16/2024 6 :07 AM CDT MAGNESIUM BLOOD AM Draw 10/16/2024 4:39 AM CDT RENAL FUNCTION PANEL AM Draw 10/16/2024 4:39 AM CDT CBC W/O DIFFERENTIAL AM Draw 10/16/2024 4:39 AM CDT MAGNESIUM BLOOD AM Draw 10/15/2024 5:17 PM CDT RENAL FUNCTION PANEL AM Draw 10/15/2024 5:17 PM CDT MAGNESIUM BLOOD AM Draw 10/15/2024 2:29 AM CDT RENAL FUNCTION PANEL AM Draw 10/15/2024 2:29 AM CDT CBC W/O DIFFERENTIAL AM Draw 10/15/2024 2:29 AM CDT CALPROTECTIN FECAL Routine 10/14/2024 5: 44 PM CDT MAGNESIUM BLOOD AM Draw 10/14/2024 5:43 PM CDT RENAL FUNCTION PANEL AM Draw 10/14/2024 5:43 PM CDT BASIC METABOLIC PANEL (CALCIUM TOTAL) Timed 10/14/2024 1:27 PM CDT CARDIAC EKG ORDER 10/14/2024 11: 21 AM CDT PHOSPHORUS BLOOD AM Draw 10/14/2024 3:52 AM CDT MAGNESIUM BLOOD AM Draw 10/14/2024 3:52 AM CDT CBC W/O DIFFERENTIAL AM Draw 10/14/2024 3:52 AM CDT BASIC METABOLIC PANEL (CALCIUM TOTAL) AM Draw 10/14/2024 3:52 AM CDT GASTROINTESTINAL PATHOGEN PANEL BY PCR Routine 10/14/2024 12:34 AM CDT C DIFFICILE GDH AG + TOXIN A+B Routine 10/14/2024 12:10 AM CDT URINALYSIS REFLEX TO MICROSCOPIC NO CULTURE STAT 10/13/2024 7:09 PM CDT CULTURE URINE STAT 10/13/2024 7:09 PM CDT LACTIC ACID BLOOD REFLEX TO REPEAT Timed STAT 10/13/2024 5:15 PM CDT TROPONIN-I HIGH SENSITIVE REFLEX 1HOUR Timed 10/13/2024 5:07 PM CDT COMPREHENSIVE METABOLIC PANEL STAT 10/13/2024 4:40 PM CDT TROPONIN-I HIGH SENSITIVE REFLEX 1HOUR Timed 10/13/2024 4:40 PM CDT LACTIC ACID BLOOD REFLEX TO REPEAT Timed STAT 10/13/2024 2:19 PM CDT COMPREHENSIVE METABOLIC PANEL STAT 10/13/2024 2:19 PM CDT TROPONIN-I HIGH SENSITIVE BASELINE + 1HR STAT 10/13/2024 2:19 PM CDT XR CHEST 1VW PORTABLE STAT 10/13/2024 1:53 PM CDT Hypotension, unspecified hypotension type CT ABDOMEN PELVIS WO CONTRAST STAT 10/13/2024 1:44 PM CDT Hypotension, unspecified hypotension type PT-INR SLH STAT 10/13/2024 12:50 PM CDT LIPASE BLOOD STAT 10/13/2024 12:50 PM CDT CBC W AUTO DIFFERENTIAL STAT 10/14/19 12:50 PM CDT LACTIC ACID BLOOD REFLEX TO REPEAT STAT 10/13/2024 12:50 PM CDT CULTURE BLOOD Timed 10/13/2024 12:50 PM CDT CULTURE BLOOD Timed 10/13/2024 12:50 PM CDT EKG 12-LEAD STAT 10/13/2024 12:46 PM CDT Hypotension, unspecified hypotension type C-REACTIVE PROTEIN 10/12/2024 4: 01 PM CDT PREALBUMIN 10/12/2024 4:01 PM CDT QUANTIFERON-TB GOLD PLUS 4-TUBE Routine 09/20/2024 12:16 PM CDT Crohn's disease of both small and large intestine with fistula (HCC) HEPATITIS B SURFACE ANTIGEN W RFLX CONFIRMATION Routine 09/20/2024 12:16 PM CDT Crohn's disease of both small and large intestine with fistula (HCC) C-REACTIVE PROTEIN Routine 09/20/2024 12 :16 PM CDT Crohn's disease of both small and large intestine with fistula (HCC) COMPREHENSIVE METABOLIC PANEL Routine 09/20/2024 12:16 PM CDT Crohn's disease of both small and large intestine with fistula (HCC) CBC W/O DIFFERENTIAL Routine 09/20/2024 12:16 PM CDT Crohn's disease of both small and large intestine with fistula (HCC) PHOSPHORUS BLOOD AM Draw 09/03/2024 7:47 AM CDT MAGNESIUM BLOOD AM Draw 09/03/2024 7:47 AM CDT BASIC METABOLIC PANEL (CALCIUM TOTAL) AM Draw 09/03/2024 7:47 AM CDT CBC W AUTO DIFFERENTIAL AM Draw 09/04/19 7:47 AM CDT OT EVAL AND TREAT Routine 09/02/2024 11: 22 AM CDT PT EVAL AND TREAT Routine 09/02/2024 11: 22 AM CDT CALPROTECTIN FECAL Routine 09/02/2024 7: 44 AM CDT GASTROINTESTINAL PATHOGEN PANEL BY PCR Routine 09/02/2024 7:44 AM CDT C DIFFICILE GDH AG + TOXIN A+B Routine 09/02/2024 7:44 AM CDT PHOSPHORUS BLOOD AM Draw 09/02/2024 7:32 AM CDT MAGNESIUM BLOOD AM Draw 09/02/2024 7:32 AM CDT BASIC METABOLIC PANEL (CALCIUM TOTAL) AM Draw 09/02/2024 7:32 AM CDT VANCOMYCIN LEVEL RANDOM Routine 09/03/19 7:32 AM CDT CBC W AUTO DIFFERENTIAL AM Draw 09/03/19 7:32 AM CDT VAS LEFT VENOUS DUPLEX UE Routine 09/01/2024 2:01 PM CDT Subclavian artery thrombosis (HCC) PHOSPHORUS BLOOD Routine 09/01/2024 11:5 3 AM CDT MAGNESIUM BLOOD Routine 09/01/2024 11:53 AM CDT BASIC METABOLIC PANEL (CALCIUM TOTAL) Routine 09/01/2024 11:53 AM CDT CALCIUM IONIZED WHOLE BLOOD STAT 09/01/2024 4:14 AM CDT C-REACTIVE PROTEIN AM Draw 09/01/2024 1: 29 AM CDT MAGNESIUM BLOOD Routine 09/01/2024 1:29 AM CDT CBC W AUTO DIFFERENTIAL AM Draw 09/02/19 1:29 AM CDT VANCOMYCIN LEVEL RANDOM Routine 09/02/19 1:29 AM CDT LACTIC ACID BLOOD STAT 09/01/2024 1:2 9 AM CDT PHOSPHORUS BLOOD STAT 09/01/2024 1:29 AM CDT BASIC METABOLIC PANEL (CALCIUM TOTAL) STAT 09/01/2024 1:29 AM CDT CULTURE BLOOD STAT 09/01/2024 1:29 AM CDT HEPATITIS SCREEN ACUTE Routine 4 9:53 AM CDT from Last 3 Months or Most Recently Relevant to Health Maintenance Results * PREPARE (CROSSMATCH) RBC UNIT(S), 1 Units (10/16/2024 6:07 AM CDT) Unit Description AS1 LR PRBC IRR [facility] Unit ABO A [facility] Unit Rh NEG [facility] Product Number R04 [facility] Unit Donor # [id number] [facility] Unit Status released [facility] Product Code [id number] [facility] Blood Type Barcode 0600 [facility] Expiration Date [id number] [facility] Blood Bank BLOOD SPECIMEN / Unknown 10/16/2024 6:07 AM CDT 10/16/2024 6:16 AM CDT Aly Dee MD LAB - BLOOD BANK ORDERABLES Fin al Result Performing Organization Address City/[facility] Co de Phone Number [facility] [address] [place] [address], [facility] [phone] * TYPE + SCREEN PANEL (10/16/2024 6:07 AM CDT) Antibody Screen NEG 7:11 AM CDT [facility] ABO Rh A NEG 10/16/2024 7:11 AM CDT [facility] Blood Bank BLOOD SPECIMEN / Unknown Venipuncture / Unknown 10/16/2024 6:07 AM CDT 10/16/2024 6:16 AM CDT Aly Dee MD LAB - BLOOD BANK ORDERABLES Fin al Result [facility] [address] [place] [address], [facility] [phone] * (ABNORMAL) CBC W/O DIFFERENTIAL (10/16/2024 4:39 AM CDT) Only the most recent of4 resultswithin the time period is included. WBC 7.1 4.0 - 10.7 x10E9/L 10/16/2024 4:52 AM [facility] RBC Count 2.31(L) 3.90 - 5.20 x10E12/L 10/16/2024 4:52 AM [facility] Hemoglobin 6.8(L) 11.9 - 15.8 g/dL 10/16/2024 4:52 AM [facility] Hematocrit 21.6(L) 34.8 - 46.1 % 10/16/2024 4:52 AM [facility] MCV 93.5 80.0 - 98.0 fL 10/16/2024 4:52 AM [facility] MCH 29.4 26.7 - 33.6 pg 10/16/2024 4:52 AM [facility] MCHC 31.5(L) 31.7 - 36.3 g/dL 10/16/2024 4:52 AM [facility] RDW-CV 13.5 11.3 - 14.8 % 10/16/2024 4:52 AM [facility] Platelet Count 243 150 - 420 x10E9/L 10/16/2024 4:52 AM [facility] MPV 8.9 7.8 - 11.4 fL 10/16/2024 4:52 AM [facility] Blood BLOOD SPECIMEN / Unknown Venipuncture / Unknown 10/16/2024 4:39 AM CDT 10/16/2024 4:45 AM CDT us Aly Dee MD LAB - HEMATOLOGY ORDERABLES Fin al Result [facility] [address] [place] [address], [facility] [phone] * (ABNORMAL) RENAL FUNCTION PANEL (10/16/2024 4:39 AM [facility]) Only the most recent of4 resultswithin the time period is included. BUN 16 7 - 26 mg/dL 10/16/2024 5:29 AM [facility] Creatinine 0.79 0.56 - 0.96 mg/dL 10/16/2024 5:29 AM [facility] Sodium 139 136 - 145 mmol/L 10/16/2024 5:29 AM [facility] Potassium 3.4(L) 3.5 - 4.5 mmol/L 10/16/2024 5:29 AM [facility] Chloride 105 98 - 107 mmol/L 10/16/2024 5:29 AM [facility] CO2 27 22 - 29 mmol/L 10/16/2024 5:29 AM [facility] Glucose 89 70 - 99 mg/dL 10/16/2024 5:29 AM [facility] Albumin 2.2(L) 3.4 - 5.0 g/dL 10/16/2024 5:29 AM [facility] Calcium 7.9(L) 8.4 - 10.2 mg/dL 10/16/2024 5:29 AM [facility] Phosphorus 1.6(L) 2.9 - 5.1 mg/dL 10/16/2024 5:29 AM [facility] Anion Gap 7 6 - 16 10/16/2024 5:29 AM [facility] BUN/Creatinine Ratio 20 7 - 23 10/16/2024 5:29 AM [facility] Osmolality Calculated 289 275 - 295 mOsm/kg 10/16/2024 5:29 AM [facility] eGFR by CKD-EPI 77(L) >=90 mL/min/1.7 3 m2 10/16/2024 5:29 AM [facility] Blood BLOOD SPECIMEN / Unknown Venipuncture / Unknown 10/16/2024 4:39 AM T 10/16/2024 4:51 AM [facility] - 10/16/2024 5:29 AM CDT Estimated Glomerular Filtration Rate (eGFR) calculated using the CKD-EPI Creatinine Equation (2020), per the National Kidney Foundation and [place] [employer] recommendations. Aly Dee MD LAB - CHEMISTRY ORDERABLES Venita l Result Performing Organization Address City/[facility]/ZIP Co de Phone Number [address] [address], [place] [phone] * (ABNORMAL) MAGNESIUM BLOOD (10/16/2024 4:39 AM CDT) Only the most recent of9 resultswithin the time period is included. Magnesium 3.1(H) 1.6 - 2.6 mg/dL 10/16/2024 5:36 AM CDT [facility] Blood BLOOD SPECIMEN / Unknown Venipuncture / Unknown 10/16/2024 4:39 AM CDT 10/16/2024 4:51 AM CDT Aly Dee MD LAB - CHEMISTRY ORDERABLES Venita l Result Performing Organization Address [facility] Co de Phone Number [address] [address], [place] [phone] * CALPROTECTIN FECAL (10/14/2024 5:44 PM CDT) Only the most recent of2 resultswithin the time period is included. Calprotectin Fecal 45 <=49 ug/g 10/19/2024 3:11 PM CDT [employer] ([facility]) Comment: REFERENCE INTERVAL: Calprotectin, Fecal by Immunoassay Less than 50 ug/g........Normal 50-120 ug/g..............Borderline elevated, test should be re-evaluated in 4-6 weeks. 121 ug/g or greater......Elevated Performed By: [employer] [address] [place] [id number] Administrative Support Coordinator: Dhruv Quintana MD, PhD CLIA Number: [id number] Stool STOOL SPECIMEN / Unknown Collection / Unknown 10/14/2024 5:44 PM CDT 10/14/2024 5:55 PM CDT us Aly Dee MD LAB - BODY FLUID ORDERABLES Fin al Result [facility] ([facility]) [address] [place] [address], [facility] * (ABNORMAL) BASIC METABOLIC PANEL (CALCIUM TOTAL) (10/14/2024 1:27 PM CDT) Only the most recent of6 resultswithin the time period is included. BUN 52(H) 7 - 26 mg/dL 10/14/2024 2:28 PM [facility] Creatinine 1.81(H) 0.56 - 0.96 mg/dL 10/14/2024 2:28 PM [facility] Sodium 134(L) 136 - 145 mmol/L 10/14/2024 2:28 PM [facility] Potassium 3.6 3.5 - 4.5 mmol/L 10/14/2024 2:28 PM [facility] Chloride 96(L) 98 - 107 mmol/L 10/14/2024 2:28 PM [facility] CO2 28 22 - 29 mmol/L 10/14/2024 2:28 PM [facility] Glucose 109(H) 70 - 99 mg/dL 10/14/2024 2:28 PM [facility] Calcium 8.3(L) 8.4 - 10.2 mg/dL 10/14/2024 2:28 PM [facility] Anion Gap 10 6 - 16 10/14/2024 2:28 PM [facility] BUN/Creatinine Ratio 29(H) 7 - 23 10/14/2024 2:28 PM [facility] Osmolality Calculated 293 275 - 295 mOsm/kg 10/14/2024 2:28 PM [facility] eGFR by CKD-EPI 29(L) >=90 mL/min/1.7 3 m2 10/14/2024 2:28 PM [facility] Blood BLOOD SPECIMEN / Unknown Venipuncture / Unknown 10/14/2024 1:27 PM CDT 10/14/2024 1:53 PM CDT Narrative [facility] - 10/14/2024 2:28 PM CDT Estimated Glomerular Filtration Rate (eGFR) calculated using the CKD-EPI Creatinine Equation (2020), per the National Kidney Foundation and [place] [employer] recommendations. us Aly Dee MD LAB - CHEMISTRY ORDERABLES Venita l Result [address] [address], [facility] [phone] * CARDIAC EKG ORDER (10/14/2024 11:21 AM CDT) Narrative 10/14/2024 11:21 AM CDT Ordered by an unspecified provider. us Scanned Document CARDIAC SERVICES ORDERABLES Fin al Result * PHOSPHORUS BLOOD (10/14/2024 3:52 AM CDT) Only the most recent of5 resultswithin the time period is included. [facility] Phosphorus 4.4 2.9 - 5.1 mg/dL 10/14/2024 4:30 AM CDT [facility] Blood BLOOD SPECIMEN / Unknown Venipuncture / Unknown 10/14/2024 3:52 AM CDT 10/14/2024 3:59 AM CDT us Aly Dee MD LAB - CHEMISTRY ORDERABLES Venita l Result [address] [address], [place] [phone] * GASTROINTESTINAL PATHOGEN PANEL BY PCR (10/14/2024 12:34 AM CDT) Only the most recent of2 resultswithin the time period is included. [facility] Campylobacter Not detected Not detected 10/14/2024 6:18 AM CDT [facility] Plesiomonas shigelloides Not detected Not detected 10/14/2024 6:18 AM CDT [facility] Salmonella Not detected Not detected 10/14/2024 6:18 AM CDT [facility] Vibrio Not detected Not detected 10/14/2024 6:18 AM CDT [facility] Vibrio cholerae Not detected Not detected 10/14/2024 6:18 AM CDT [facility] Yersinia enterocolitica Not detected Not detected 10/14/2024 6:18 AM CDT [facility] Enteroaggregative E coli (EAEC) Not detected Not detected 10/14/2024 6:18 AM CDT [facility] Enteropathogenic E coli (EPEC) Not detected Not detected, N/A 10/14/2024 6:18 AM CDT [facility] Enterotoxigenic E coli (ETEC) LT/ST Not detected Not detected 10/14/2024 6:18 AM CDT [facility] Shiga-Like Toxin-Producing E coli (STEC) stx1/stx2 Not detected Not detected 10/14/2024 6:18 AM CDT [facility] E coli 0157 N/A Not detected, N/A 10/14/2024 6:18 AM CDT [facility] Shigella/Enteroinvas moo E coli Not detected Not detected 10/14/2024 6:18 AM CDT [facility] Cryptosporidium Not detected Not detected 10/14/2024 6:18 AM CDT [facility] Cyclospora cayetanensis Not detected Not detected 10/14/2024 6:18 AM CDT [facility] Entamoeba histolytica Not detected Not detected 10/14/2024 6:18 AM CDT [facility] Giardia lamblia Not detected Not detected 10/14/2024 6:18 AM CDT [facility] Adenovirus F 40/41 Not detected Not detected 10/14/2024 6:18 AM CDT [facility] Astrovirus Not detected Not detected 10/14/2024 6:18 AM CDT [facility] Norovirus GI/GII Not detected Not detected 10/14/2024 6:18 AM CDT [facility] Rotavirus A Not detected Not detected 10/14/2024 6:18 AM CDT [facility] Sapovirus Not detected Not detected 10/14/2024 6:18 AM CDT [facility] Stool STOOL SPECIMEN / Unknown Collection / Unknown 10/14/2024 12:34 AM CDT 10/14/2024 12:43 AM CDT Narrative [facility] - 10/14/2024 6:18 AM CDT Test performed by [employer] RT-PCR. Aly Dee MD LAB - MICROBIOLOGY ORDERABLES F inal Result Performing Organization Address [facility] Co de Phone Number [facility] [address] [facility] [place] [address], [facility] [phone] * C DIFFICILE GDH AG + TOXIN A+B (10/14/2024 12:10 AM CDT) Only the most recent of2 resultswithin the time period is included. C difficile GDH antigen & toxin A/B NEGATIVE NEGATIVE 10/14/2024 8:19 AM CDT [facility] Stool STOOL SPECIMEN / Unknown Collection / Unknown 10/14/2024 12:10 AM CDT 10/14/2024 12:43 AM CDT Narrative [facility] - 10/14/2024 8:19 AM CDT Negative for toxigenic C. difficile Aly Dee MD LAB - MICROBIOLOGY ORDERABLES F inal Result Performing Organization Address [facility] Co de Phone Number [facility] [address] [facility] [address], [facility] [phone] * (ABNORMAL) URINALYSIS REFLEX TO MICROSCOPIC NO CULTURE (10/13/2024 7:09 PM CDT) Color UA Yellow Yellow, Straw 10/13/2024 7:37 PM CDT [facility] Clarity UA Clear Clear 10/13/2024 7:37 PM CDT [facility] Glucose UA Normal Normal 10/13/2024 7:37 PM CDT [facility] Bilirubin UA Negative Negative 10/13/2024 7:37 PM CDT [facility] Ketone UA Negative Negative 10/13/2024 7:37 PM CDT [facility] Specific [place] UA 1.016 1.005 - 1.030 10/13/2024 7:37 PM CDT [facility] Blood UA 1+(A) Negative 10/13/2024 7:37 PM CDT [facility] pH UA 5.0 5.0 - 8.0 10/13/2024 7:37 PM CDT [facility] Protein UA Trace(A) Negative 10/13/2024 7:37 PM CDT [facility] Urobilinogen UA Normal Normal mg/dL 025 7:37 PM T [facility] Nitrite UA Negative Negative 10/13/2024 7:37 PM CDT [facility] Leukocyte Esterase UA Negative Negative 10/13/2024 7:37 PM CDT [facility] RBC UA 0-2 0 - 5 # /hpf 10/13/2024 7:37 PM T [facility] WBC UA 6-10(A) 0 - 5 # /hpf 10/13/2024 7:37 PM CDT [facility] Bacteria UA Trace(A) None Seen 10/13/2024 7:37 PM CDT [facility] Squamous Epithelial Cells 0-2 0 - 5 /hpf 10/13/2024 7:37 PM T [facility] Mucus UA 1+ /LPF 10/13/2024 7:37 PM T [facility] Hyaline Casts >20(A) 0 - 2 /LPF 10/13/2024 7:37 PM T [facility] Granular Casts 3-5(A) None Seen /LPF 10/13/2024 7:37 PM T [facility] Urine URINE SPECIMEN OBTAINED BY CLEAN CATCH PROCEDURE / Unknown Collection / Unknown 10/13/2024 7:09 PM CDT 10/13/2024 7:17 PM CDT us Nate Gutierres MD LAB - URINALYSIS ORDERABLES Fi nal Result [address] [address], [facility] [phone] * CULTURE URINE (10/13/2024 7:09 PM CDT) Culture Urine No growth (<100 CFU/mL) RAQUEL 10/15/2024 12:51 AM CDT [facility] Urine URINE SPECIMEN OBTAINED BY CLEAN CATCH PROCEDURE / Unknown Collection / Unknown 10/13/2024 7:09 PM CDT 10/13/2024 7:17 PM CDT Nate Gutierres MD LAB - MICROBIOLOGY ORDERABLES Final Result Performing Organization Address City/[facility]/ZIP Co de Phone Number [facility] [address] [place] [address], [facility] [phone] * (ABNORMAL) LACTIC ACID BLOOD REFLEX TO REPEAT (10/13/2024 5:15 PM CDT) Only the most recent of3 resultswithin the time period is included. Lactic Acid-Stat 2.4(H) <=2.0 mmol/L 10/13/2024 6:05 PM CDT [facility] Blood BLOOD SPECIMEN / Unknown Venipuncture / Unknown 10/13/2024 5:15 PM CDT 10/13/2024 5:52 PM CDT Nate Gutierres MD LAB - CHEMISTRY ORDERABLES Fin al Result Performing Organization Address City/[facility]/ZIP Co de Phone Number [facility] [address] [place] [address], [facility] [phone] * (ABNORMAL) TROPONIN-I HIGH SENSITIVE REFLEX 1HOUR (10/13/2024 5:07 PM CDT) Only the most recent of2 resultswithin the time period is included. Troponin I High Sensitive 19(H) <=14 ng/L 10/13/2024 5:29 PM CDT [facility] Delta Troponin I HS 10/13/2024 5:29 PM CDT [facility] Comment:Delta value intentio bertha not calculated. Baseline to 1 hour specimen collection interval exceeded. Blood BLOOD SPECIMEN / Unknown Venipuncture / Unknown 10/13/2024 5:07 PM CDT 10/13/2024 5:07 PM CDT Nate Gutierres MD LAB - CHEMISTRY ORDERABLES Fin al Result [facility] [address] [place] [address], [facility] [phone] * (ABNORMAL) COMPREHENSIVE METABOLIC PANEL (10/13/2024 4:40 PM CDT) Only the most recent of3 resultswithin the time period is included. BUN 72(H) 7 - 26 mg/dL 10/13/2024 5:25 PM [facility] Creatinine 3.69(H) 0.56 - 0.96 mg/dL 10/13/2024 5:25 PM [facility] Sodium 125(L) 136 - 145 mmol/L 10/13/2024 5:25 PM [facility] Potassium 3.5 3.5 - 4.5 mmol/L 10/13/2024 5:25 PM [facility] Chloride 91(L) 98 - 107 mmol/L 10/13/2024 5:25 PM [facility] CO2 21(L) 22 - 29 mmol/L 10/13/2024 5:25 PM [facility] Glucose 75 70 - 99 mg/dL 10/13/2024 5:25 PM [facility] Calcium 7.4(L) 8.4 - 10.2 mg/dL 10/13/2024 5:25 PM [facility] Protein Total 6.0 6.0 - 8.3 g/dL 10/13/2024 5:25 PM [facility] Albumin 1.6(L) 3.4 - 5.0 g/dL 10/13/2024 5:25 PM [facility] Bilirubin Total 0.1(L) 0.2 - 1.2 mg/dL 10/13/2024 5:25 PM [facility] Alkaline Phosphatase 77 40 - 150 U/L 10/13/2024 5:25 PM [facility] ALT 14 5 - 55 U/L 10/13/2024 5:25 PM [facility] AST 34 5 - 34 U/L 10/13/2024 5:25 PM [facility] Anion Gap 13 6 - 16 10/13/2024 5:25 PM CDT [facility] BUN/Creatinine Ratio 20 7 - 23 10/13/2024 5:25 PM CDT [facility] Osmolality Calculated 280 275 - 295 mOsm/kg 10/13/2024 5:25 PM CDT [facility] Albumin/Globulin Ratio 0.4(L) 1.1 - 2.3 10/13/2024 5:25 PM CDT [facility] eGFR by CKD-EPI 12(L) >=90 mL/min/1.7 3 m2 10/13/2024 5:25 PM CDT [facility] Blood BLOOD SPECIMEN / Unknown Venipuncture / Unknown 10/13/2024 4:40 PM CDT 10/13/2024 4:50 PM CDT Narrative [facility] - 10/13/2024 5:25 PM CDT Estimated Glomerular Filtration Rate (eGFR) calculated using the CKD-EPI Creatinine Equation (2020), per the National Kidney Foundation and [place] [employer] recommendations. us Marlon Manuel MD LAB - CHEMISTRY ORDERABLES Fi nal Result Performing Organization Address City/[facility]/ZIP Co de Phone Number [address] [address], [place] [phone] * (ABNORMAL) TROPONIN-I HIGH SENSITIVE BASELINE + 1HR (10/13/2024 2:19 PM CDT) Troponin I High Sensitive 26(H) <=14 ng/L 10/13/2024 4:10 PM CDT [facility] Blood BLOOD SPECIMEN / Unknown Venipuncture / Unknown 10/13/2024 2:19 PM CDT 10/13/2024 2:20 PM CDT us Nate Gutierres MD LAB - CHEMISTRY ORDERABLES Fin al Result [address] [address], [place] [phone] * XR CHEST 1VW PORTABLE (10/13/2024 1:53 PM CDT) Anatomical Region Laterality Modality Chest Digital Radiogra phy 10/13/2024 2:12 PM CDT Narrative 10/13/2024 2:15 PM CDT PROCEDURE: XR CHEST 1VW PORTABLE, DATE/TIME OF EXAM: 10/13/2024 1:53 PM, LOCATION [facility] INDICATION: I95.9: Hypotension, unspecified hypotension type ADDITIONAL CLINICAL INFORMATION: Ordering Provider Reason For Exam: is there infiltrate COMPARISON: Chest x-ray 11/24/2023 TECHNIQUE: Frontal radiograph of the chest. FINDINGS/IMPRESSION: There is no focal consolidation, pleural effusion, or pneumothorax. The cardiomediastinal silhouette is normal. Degenerative changes are noted in the left shoulder. Report dictated by Keo Bradley MD, ([employer]). Chelsey Valdez MD have personally reviewed and interpreted this examination/study. > Interpreting Provider: Chelsey Berrios MD on 10/13/2024 2:15 PM Procedure Note Chelsey Berrios MD - 10/13/2024 PROCEDURE: XR CHEST 1VW PORTABLE, DATE/TIME OF EXAM: 10/13/2024 1:53PM, LOCATION [facility] INDICATION: I95.9: Hypotension, unspecified hypotension type ADDITIONAL CLINICAL INFORMATION: Ordering Provider Reason For Exam: is there infiltrate COMPARISON: Chest x-ray 11/24/2023 TECHNIQUE: Frontal radiograph of the chest. FINDINGS/IMPRESSION: There is no focal consolidation, pleural effusion, or pneumothorax. The cardiomediastinal silhouette is normal. Degenerative changes are notedin the left shoulder. Report dictated by Keo Bradley MD, ([employer]). Chelsey Valdez MD have personally reviewed and interpreted this examination/study. > Interpreting Provider: Chelsey Berrios MD on 10/13/2024 2:15 PM Nate Gutierres MD DIAGNOSTIC IMAGING ORDERABLES Final Result * CT ABDOMEN AND PELVIS NON IV CONTRAST (10/13/2024 1:44 PM CDT) Anatomical Region Laterality Modality Abdomen, Pelvis Computed Tomogra phy 10/13/2024 1:56 PM CDT Impressions 10/13/2024 10:44 PM CDT Impression: Lack of contrast limits evaluation of visceral structures. 1.Similar appearance of tethered loops of bowel, some of which appear dilated, with complex fistula between the small bowel, colon, and skin consistent with enterocutaneous fistula with associated inflammation. There is interval decrease in gaseous distention of bowel loops. 2.Stable appearance of indeterminate bilateral adrenal nodules. 3.Stable appearance of 1.8 cm groundglass nodule in the right lung base, previously measured 1.8 cm when remeasured similarly. 4.Concern for developing sacral pressure injury, recommend correlation with physical exam. This report was dictated by Jair Steiner M.D. (DR/IR Resident). I, Chelsey Berrios MD have personally reviewed and interpreted this examination/study. > Interpreting Provider: Chelsey Berrios MD on 10/13/2024 10:44 PM Narrative 10/13/2024 10:44 PM CDT PROCEDURE: CT ABDOMEN PELVIS WO CONTRAST, DATE/TIME OF EXAM: 10/13/2024 1:45 PM, LOCATION [facility] INDICATION: I95.9: Hypotension, unspecified hypotension type ADDITIONAL information: 74-year-old female with history of a KI, Crohn's disease, enterocutaneous fistula presenting to the ED complaining of generalized weakness and fistula drainage. COMPARISON: CT abdomen and pelvis with contrast 08/31/2024 TECHNIQUE: CT of the abdomen and pelvis was performed without contrast according to standard protocol. Findings: Evaluation of visceral and vascular structures is degraded due to lack of intravenous contrast administration. Lower Chest: Similar appearance of a 1.8 cm groundglass nodule in the right lung base, previously measured 1.8 cm in remeasured similarly. Aside from atherosclerotic calcifications within the aorta, the remainder of the lower chest appears normal. Liver: Within the limitations of a noncontrast examination, the liver is unremarkable. Gallbladder and Bile Ducts: The gallbladder is absent. There is mild central intrahepatic and extrahepatic biliary ductal dilation likely secondary to reservoir effect in the setting of cholecystectomy. Spleen: Spleen is small but otherwise appears normal. Pancreas: The pancreas appears normal. Adrenals: Bilateral indeterminate adrenal nodules measuring 2.3 cm on the right and 1.5 cm on the left, similar appearance to prior CT. Kidneys: There is a 4 mm nonobstructing stone in the upper pole the right kidney. Multiple additional foci of mineralization are noted within the parenchyma of the right kidney without evidence of obstruction. Redemonstration of a 1.7 x 1.9 cm partially exophytic cyst in the midpole of the right kidney. 2 nonobstructing renal stones are noted in the left kidney, one of which measures 5 mm in the lower pole and 3 mm in the upper pole. 2 additional punctate nonobstructing stones are noted in the left upper pole. There are subcentimeter foci of hypoattenuation too small to characterize but likely represent simple renal cysts. There is no evidence of hydronephrosis. Bladder: The bladder wall is diffusely thickened, likely due to decompressed state. Gastrointestinal: Redemonstrated post surgical changes of bowel resection and anastomosis. There are multiple loops of small bowel tethered to the lower anterior abdominal wall with adjacent inflammation involving the adjacent loops of bowel and sigmoid colon, likely with complex fistula formation between the involved bowel. There is thickening of the peritoneal lining and foci of air coursing to open midline wound suggestive of enterocutaneous fistula. The soft tissues and skin overlying the possible fistula are thickened with likely granulation tissue formation along the borders. There is trace mesenteric fluid. The transverse colon is also seen coursing superior to this region. There is decreased intraluminal gas. The appendix is not seen. Mesentery/Peritoneum/Retroperitoneum: Multiple prominent mesenteric lymph nodes are again seen, likely reactive. Reproductive Organs: The uterus is absent. Vasculature: Atherosclerotic calcification of the aorta and its branch vessels. Bones: Bone windows demonstrate no suspicious lytic or blastic lesions. The visible osseous structures are intact. Soft tissues: There is soft tissue inflammation overlying the sacrum without olvin evidence of open wound concerning for developing sacral pressure injury. Procedure Note Chelsey Berrios MD - 10/13/2024 PROCEDURE: CT ABDOMEN PELVIS WO CONTRAST, DATE/TIME OF EXAM: 10/13/2024 1:45 PM, LOCATION [facility] INDICATION: I95.9: Hypotension, unspecified hypotension type ADDITIONAL information: 74-year-old female with history of a KI, Crohn's disease,enterocutaneous fistula presenting to the ED complaining of generalized weakness and fistula drainage. COMPARISON: CT abdomen and pelvis with contrast 08/31/2024 TECHNIQUE: CT of the abdomen and pelvis was performed without contrast according to standard protocol. Findings: Evaluation of visceral and vascular structures is degraded due to lackof intravenous contrast administration. Lower Chest: Similar appearance of a 1.8 cm groundglass nodule in theright lung base, previously measured 1.8 cm in remeasured similarly. Asidefrom atherosclerotic calcifications within the aorta, the remainder of thelower chest appears normal. Liver: Within the limitations of a noncontrast examination, the liver is unremarkable. Gallbladder and Bile Ducts: The gallbladder is absent. There is mild central intrahepatic and extrahepatic biliary ductal dilation likely secondary to reservoir effect in the setting of cholecystectomy. Spleen: Spleen is small but otherwise appears normal. Pancreas: The pancreas appears normal. Adrenals: Bilateral indeterminate adrenal nodules measuring 2.3 cm onthe right and 1.5 cm on the left, similar appearance to prior CT. Kidneys: There is a 4 mm nonobstructing stone in the upper pole theright kidney. Multiple additional foci of mineralization are noted within the parenchyma of the right kidney without evidence of obstruction. Redemonstration of a 1.7 x 1.9 cm partially exophytic cyst in themidpole of the right kidney. 2 nonobstructing renal stones are noted in the left kidney, one of which measures 5 mm in the lower pole and 3 mm in theupper pole. 2 additional punctate nonobstructing stones are noted in the left upper pole. There are subcentimeter foci of hypoattenuation too small to characterize but likely represent simple renal cysts. There is noevidence of hydronephrosis. Bladder: The bladder wall is diffusely thickened, likely due to decompressed state. Gastrointestinal: Redemonstrated post surgical changes of bowelresection and anastomosis. There are multiple loops of small bowel tethered to the lower anterior abdominal wall with adjacent inflammation involving the adjacent loops of bowel and sigmoid colon, likely with complex fistula formation between the involved bowel. There is thickening of theperitoneal lining and foci of air coursing to open midline wound suggestive of enterocutaneous fistula. The soft tissues and skin overlying thepossible fistula are thickened with likely granulation tissue formation along the borders. There is trace mesenteric fluid. The transverse colon is alsoseen coursing superior to this region. There is decreased intraluminal gas.The appendix is not seen. Mesentery/Peritoneum/Retroperitoneum: Multiple prominent mesentericlymph nodes are again seen, likely reactive. Reproductive Organs: The uterus is absent. Vasculature: Atherosclerotic calcification of the aorta and its branch vessels. Bones: Bone windows demonstrate no suspicious lytic or blastic lesions.The visible osseous structures are intact. Soft tissues: There is soft tissue inflammation overlying the sacrum without olvin evidence of open wound concerning for developing sacral pressure injury. Impression: Lack of contrast limits evaluation of visceral structures. 1.Similar appearance of tethered loops of bowel, some of which appear dilated, with complex fistula between the small bowel, colon, and skin consistent with enterocutaneous fistula with associated inflammation.There is interval decrease in gaseous distention of bowel loops. 2.Stable appearance of indeterminate bilateral adrenal nodules. 3.Stable appearance of 1.8 cm groundglass nodule in the right lung base, previously measured 1.8 cm when remeasured similarly. 4.Concern for developing sacral pressure injury, recommend correlationwith physical exam. This report was dictated by Jair Steiner M.D. (DR/IR Resident). I, Chelsey Berrios MD have personally reviewed and interpreted this examination/study. > Interpreting Provider: Chelsey Berrios MD on 10/13/2024 10:44 PM us Nate Gutierres MD CT ORDERABLES Final Result * PT-INR [facility] (10/13/2024 12:50 PM CDT) PT 13.3 12.1 - 14.8 Seconds 10/13/2024 1:35 PM CDT [facility] INR 1.0 See Comment 10/13/2024 1:35 PM CDT [facility] Comment:The suggested therap eutic range for standard coumadin (warfarin) therapy is an INR of 2.0-3.0. For high-risk patients (Mechanical Mitral Valve Prosthesis, etc.), the suggested prophylactic therapeutic range is an INR of 2.5-3.5. Blood BLOOD SPECIMEN / Unknown Venipuncture / Unknown 10/13/2024 12:50 PM CDT 10/13/2024 1:05 PM CDT us Nate Gutierres MD LAB - COAGULATION ORDERABLES F inal Result [facility] [address] [place] [address], [facility] [phone] * CULTURE BLOOD (10/13/2024 12:50 PM CDT) Only the most recent of3 resultswithin the time period is included. Culture No growth day 5 RAQUEL 10/18/2024 5:01 PM CDT [facility] MICROBIOLOGY Blood PERIPHERAL BLOOD / Unknown Venipuncture / Unknown 10/13/2024 12:50 PM CDT 10/13/2024 12:50 PM CDT us Nate Gutierres MD LAB - MICROBIOLOGY ORDERABLES Final Result [facility] MICROBIOLOGY [address] [place] [address], [facility] [phone] * (ABNORMAL) CBC W AUTO DIFFERENTIAL (10/13/2024 12:50 PM CDT) Only the most recent of4 resultswithin the time period is included. WBC 9.0 4.0 - 10.7 x10E9/L 10/13/2024 1:17 PM [facility] RBC Count 3.48(L) 3.90 - 5.20 x10E12/L 10/13/2024 1:17 PM [facility] Hemoglobin 10.5(L) 11.9 - 15.8 g/dL 10/13/2024 1:17 PM [facility] Hematocrit 30.7(L) 34.8 - 46.1 % 10/13/2024 1:17 PM [facility] MCV 88.2 80.0 - 98.0 fL 10/13/2024 1:17 PM [facility] MCH 30.2 26.7 - 33.6 pg 10/13/2024 1:17 PM [facility] MCHC 34.2 31.7 - 36.3 g/dL 10/13/2024 1:17 PM [facility] RDW-CV 12.7 11.3 - 14.8 % 10/13/2024 1:17 PM [facility] Platelet Count 462(H) 150 - 420 x10E9/L 10/13/2024 1:17 PM [facility] MPV 8.7 7.8 - 11.4 fL 10/13/2024 1:17 PM [facility] Neutrophil % 80.3(H) 41.0 - 74.0 % 10/13/2024 1:17 PM [facility] Lymphocyte % 15.4(L) 17.0 - 47.0 % 10/13/2024 1:17 PM [facility] Monocyte % 3.4 3.0 - 11.0 % 10/13/2024 1:17 PM [facility] Eosinophil % 0.1 0.0 - 7.0 % 10/13/2024 1:17 PM [facility] Basophil % 0.2 0.0 - 1.6 % 10/13/2024 1:17 PM [facility] Immature Granulocytes % 0.6 0.0 - 1.0 % 10/13/2024 1:17 PM [facility] Neutrophil Absolute 7.26 1.60 - 7.50 x10E9/L 10/13/2024 1:17 PM [facility] Lymphocyte Absolute 1.39 1.00 - 4.40 x10E9/L 10/13/2024 1:17 PM [facility] Monocyte Absolute 0.31 0.15 - 1.00 x10E9/L 10/13/2024 1:17 PM [facility] Eosinophil Absolute 0.01 0.00 - 0.60 x10E9/L 10/13/2024 1:17 PM [facility] Basophil Absolute 0.02 0.00 - 0.13 x10E9/L 10/13/2024 1:17 PM [facility] Blood BLOOD SPECIMEN / Unknown Venipuncture / Unknown 10/13/2024 12:50 PM CDT 10/13/2024 1:05 PM [facility] us Nate Gutierres MD LAB - HEMATOLOGY ORDERABLES Fi nal Result [facility] [address] [place] [address], [facility] [phone] * LIPASE BLOOD (10/13/2024 12:50 PM CDT) Pathologist [facility] Lipase 55 8 - 78 U/L 10/13/2024 1:50 PM CDT [facility] Blood BLOOD SPECIMEN / Unknown 10/13/2024 12:50 PM CDT 10/13/2024 1:50 PM CDT Narrative [facility] - 10/13/2024 1:50 PM CDT Lipase results from the Pollard Alinity analyzer may not be comparable with other methodologies. us Nate Gutierres MD LAB - CHEMISTRY ORDERABLES Fin al Result Performing Organization Address City/[facility]/ZIP Co de Phone Number [address] [address], [facility] [phone] * EKG 12-LEAD (10/13/2024 12:46 PM CDT) Ventricular Rate 93 BPM [facility] MUSE Atrial Rate 93 BPM [facility] MUSE P-R Interval 132 ms [facility] MUSE QRS Duration ms 78 ms [facility] MUSE Q-T Interval ms 368 ms [facility] MUSE QTC Calculation (Bezet) 457 ms [facility] MUSE Calculated P [place] 38 degrees [facility]H MUSE Calculated R [place] 36 degrees SL MUSE Calculated T [place] 68 degrees [facility] MUSE Interpretation EKG NORMAL SINUS RHYTHM NORMAL ECG WHEN COMPARED WITH ECG OF 01-DEC-2023 14:53, CRITERIA FOR INFERIOR INFARCT ARE NO LONGER PRESENT NONSPECIFIC T WAVE ABNORMALITY NO LONGER EVIDENT IN INFERIOR LEADS NONSPECIFIC T WAVE ABNORMALITY NO LONGER EVIDENT IN LATERAL LEADS QT HAS LENGTHENED Confirmed by MATT PITTS MD ([id number]) on 10/14/2024 8:28:20 AM [facility] MUSE 10/13/2024 12:4 6 PM CDT 10/14/2024 8:28 AM CDT us Nate Gutierres MD ECG ORDERABLES Edited Result - Final Performing Organization Address City/[facility]/ZIP Co de Phone Number [facility] MUSE * (ABNORMAL) C-REACTIVE PROTEIN (10/12/2024 4:01 PM CDT) Only the most recent of3 resultswithin the time period is included. Pathologist [facility] C-Reactive Protein 22.9(H) <8.0 mg/L [facility] Comment: Test Performed at: [email or web address] [address] GENA JERNIGAN MD 10/12/2024 4:01 PM CDT 10/12/2024 4:02 PM CDT Emerita Becker MD LAB - CHEMISTRY ORDERABLES Fin al Result Performing Organization Address City/[facility]/ZIP Co de Phone Number [address] [address] * (ABNORMAL) PREALBUMIN (10/12/2024 4:01 PM CDT) [facility] Prealbumin 37(H) 17 - 34 mg/dL [facility] Comment: Test Performed at: [email or web address] [place] [address] [place] [address] GENA JERNIGAN MD 10/12/2024 4:01 PM CDT 10/12/2024 4:02 PM CDT Emerita Becker MD LAB - CHEMISTRY ORDERABLES Fin al Result Performing Organization Address City/[facility]/ZIP Co de Phone Number [address] [address] * QUANTIFERON-TB GOLD PLUS 4-TUBE (09/20/2024 12:16 PM CDT) [facility] QuantiFERON Mitogen Minus NIL 7.17 IU/mL 09/22/2024 11:30 PM CDT [facility]) QuantiFERON Nil Value 0.21 IU/mL 09/22/2024 11:30 PM CDT [facility]) QuantiFERON Plus TB1 Minus NIL 0.01 <=0.34 IU/mL 09/22/2024 11:30 PM CDT [facility]) QuantiFERON Plus TB2 Minus NIL 0.07 <=0.34 IU/mL 09/22/2024 11:30 PM CDT [facility] ([facility]) QuantiFERON-TB Gold Plus Negative Negative 09/22/2024 11:30 PM CDT [facility] [employer] ([facility]) Comment: INTERPRETIVE INFORMATION:Quantiferon TB Gold Plus Interferon gamma release is measured for specimens from each of the four collection tubes. A qualitative result (Negative, Positive, or Indeterminate) is based on interpretation of the four values: NIL, MITOGEN minus NIL (MITOGEN-NIL), TB1 minus NIL (TB1-NIL), and TB2 minus NIL (TB2-NIL). The NIL value represents nonspecific reactivity produced by the patient specimen. The MITOGEN-NIL value serves as the positive control for the patient specimen, demonstrating successful lymphocyte activity. The TB1-NIL tube specifically detects CD4+ lymphocyte reactivity, specifically stimulated by the TB1 antigens. The TB2-NIL tube detects both CD4+ and CD8+ lymphocyte reactivity, stimulated by TB2 antigens. An overall Negative result does not completely rule out TB infection. A false-positive result in the absence of other clinical evidence of TB infection is not uncommon. Refer to: Updated Guidelines for Using Interferon Gamma Release Assays to Detect Mycobacterium tuberculosis Infection -- [place], 2010 (http://www.cdc.gov/mmwr/preview/mmwrhtml/tt9487j2.htm), for more information concerning test performance in low-prevalence populations and use in occupational screening. Performed By: [employer] [address] [place] [address] Administrative Support Coordinator: Dhruv Quintana MD, PhD CLIA Number: [id number] Blood BLOOD SPECIMEN / Unknown Lab Venipuncture / Unknown 09/20/2024 12:16 PM CDT 09/20/2024 12:42 PM CDT Emerita Becker MD LAB - CHEMISTRY ORDERABLES Fin al Result [facility] [employer] [facility]) [address] [place] [address] * HEPATITIS B SURFACE ANTIGEN W RFLX CONFIRMATION (09/20/2024 12:16 PM CDT) Hepatitis B Virus Surface Antigen Non-reacti ve Non-reacti ve 09/20/2024 1:40 PM CDT [facility] Blood BLOOD SPECIMEN / Unknown Lab Venipuncture / Unknown 09/20/2024 12:16 PM CDT 09/20/2024 12:42 PM CDT Emerita Becker MD LAB - CHEMISTRY ORDERABLES Fin al Result Performing Organization Address City/[facility]/ZIP Co de Phone Number [address] [address], [facility] [phone] * VANCOMYCIN LEVEL RANDOM (09/02/2024 7:32 AM CDT) Only the most recent of2 resultswithin the time period is included. Vancomycin Random 15.3 Therapeutic Ranges not established for random specimens ug/mL 09/02/2024 8:47 AM CDT [facility] Blood BLOOD SPECIMEN / Unknown Lab Venipuncture / Unknown 09/02/2024 7:32 AM CDT 09/02/2024 7:55 AM CDT Narrative [facility] - 09/02/2024 8:47 AM CDT See institution protocol. Roberto Monzon MD LAB - CHEMISTRY ORDERABLES Fi nal Result Performing Organization Address [facility] Co de Phone Number [address] [address], [facility] [phone] * VAS Left Venous Duplex Ue (09/01/2024 2:01 PM CDT) Anatomical Region Laterality Modality Upper Extremity Ultrasound 09/01/2024 1:42 PM CDT Narrative Procedure Note Eligio Shook MD - 09/02/2024 Roberto Monzon MD VASCULAR LAB ORDERABLES Edite d Result - Final * CALCIUM IONIZED WHOLE BLOOD (09/01/2024 4:14 AM CDT) Calcium Ionized 1.18 mmol/L 09/01/2024 4:27 AM CDT [facility] pH 7.44 7.35 - 7.45 pH 09/01/2024 4:27 AM CDT [facility] Ionized Calcium pH Adjusted 1.20 1.19 - 1.34 mmol/L 09/01/2024 4:27 AM CDT [facility] Blood BLOOD SPECIMEN / Unknown Lab Venipuncture / Unknown 09/01/2024 4:14 AM CDT 09/01/2024 4:23 AM CDT us Clif Olivera MD LAB - CHEMISTRY ORDERABLES Final Result Performing Organization Address City/[facility]/ZIP Co de Phone Number [address] [address], [place] [phone] * LACTIC ACID BLOOD (09/01/2024 1:29 AM CDT) [facility] Lactic Acid-Stat 1.8 <=2.0 mmol/L 09/01/2024 2:12 AM CDT [facility] Blood BLOOD SPECIMEN / Unknown Lab Venipuncture / Unknown 09/01/2024 1:29 AM CDT 09/01/2024 1:47 AM CDT us Callum Davenport MD LAB - CHEMISTRY ORDERABLES Final Result Performing Organization Address [facility]/ZIP Co de Phone Number [address] [address], [place] [phone] * HEPATITIS SCREEN ACUTE (11/26/2023 9:53 AM CDT) [facility] Hepatitis A Virus Antibody IgM Non-react moo Non-reac tive 11/26/2023 11:34 AM CDT [facility] Hepatitis B Virus Surface Antigen Non-react moo Non-reac tive 11/26/2023 11:34 AM CDT [facility] Hepatitis B Core Virus Antibody IgM Non-react moo Non-reac tive 11/26/2023 11:34 AM CDT [facility] Hepatitis C Antibody Non-react moo Non-reac tive 11/26/2023 11:34 AM T [facility] Comment:Hepatitis C Antibody screen indicates no serologic [...] CDT Aneta Pablo MD LAB - CHEMISTRY ORDERABLES [facility] Result [facility] [address] [place] [address], [facility] [phone] from Last 3 Months or Most Recently Relevant to Health Maintenance Additional Health Concerns Infection Onset Date Last Indicated C Diff Hx 07/01/2023 07/01/2023 VRE Hx 11/25/2023 11/25/2023 ESBL GNR 08/31/2024 08/31/2024 Insurance [facility] MANAGED MEDICARE ADV Advance Directives * LIMITED RESUSCITATION-PRIOR AND AFTER ARREST (Latest Code Status on File) Date Activated Date Inactivated Comments 10/13/2024 9:44 PM 10/18/2024 3:29 PM Question Answer Comments Limited Resuscitation: No Chest Compress ionNo Intubation, No Invasive VentilationNo Cardioversion, No Defibrilation, No External or Internal Pacemaker * LIMITED RESUSCITATION-PRIOR AND AFTER ARREST Date Activated Date Inactivated Comments 08/31/2024 6:50 PM 09/03/2024 5:36 PM Question Answer Comments Limited Resuscitation: No Chest Compress ionNo Intubation, No Invasive VentilationNo Cardioversion, No Defibrilation, No External or Internal Pacemaker * Full Code Date Activated Date Inactivated Comments 08/31/2024 5:54 PM 08/31/2024 6:50 PM * Full Code Date Activated Date Inactivated Comments 11/25/2023 2:40 AM 12/01/2023 6:06 PM * Full Code Date Activated Date Inactivated Comments 10/20/2023 11:49 PM 10/29/2023 6:47 PM Care Teams Crabber Relationship Specialty Start Date End Date Roberto Monzon MD [address] [place] [address] PCP - General Internal Medicine 08/14/23 Roberto Monzon MD [address] [place] [address] PCP - [facility] RENNY SWENSON [facility] 03/05/24 Emerita Becker MD [address] [place] [address] Gastroenterology 10/14/23 Eran Saba MD [address] [place] [address] Surgeon Trauma Surgery 10/14/23
--- OUTSIDE RECORDS SUMMARY | 2024-12-02 07:15 | XMS_ITS | Encounter Summary ---
Author Organization [facility] Health Address [address] [place] [address] Care Team Providers Care State Director Name Role Phone Roberto Monzon MD Primary Care Provider [phone] Emerita Becker MD Unavailable Eran Saba MD Unavailable [phone] Roberto Monzon MD Unavailable [phone] Encounter Details Date Type Department Care Team (Late st Contact Info) Description 12/02/2023 Transitional Care [facility] CARE COORDINATION [address] [place] [phone] Nat Asher, RN Social History Tobacco Use [...] Recorded Patient Health Questionnaire-2 Score 2 08/21/2023 [facility] - Occupational Stress Questionnaire Answer Date Recorded [...] place to sleep or slept in a fdc (including now)? No 11/25/2023 Comments No Sex and Gender Information Value Date Recorded Sex Assigned at Not on file Legal Sex Female 5:22 PM FILM OR VIDEOTAPE EDITOR Gender Identity Female 10/10/2023 11:49 AM CDT Sexual Orientation Not on file documented as of this encounter Functional Status * Is person deaf or have serious hearing difficulty? Answer Date of Assessment Author No 11/25/2023 2:35 AM CDT Eusebio Gonzalez RN * Is person blind or have serious difficulty seeing? Answer Date of Assessment Author No 11/25/2023 2:35 AM CDT Eusebio Gonzalez RN * Does person have serious difficulty walking/climbing stairs? Answer Date of Assessment Author No 11/25/2023 2:35 AM CDT Eusebio Gonzalez RN * Does person have difficulty dressing/bathing? Answer Date of Assessment Author No 11/25/2023 2:35 AM CDT Eusebio Gonzalez RN * Does person have difficulty doing errands alone? Answer Date of Assessment Author No 11/25/2023 2:35 AM JOHANAT Eusebio Gonzalez RN documented as of this encounter Mental Status * Does person have difficulty concentrating/remembering/making decisions? Answer Entry Date Author No 11/25/2023 2:35 AM JOHANAT Eusebio Gonzalez RN documented in this encounter Plan of Treatment Upcoming Encounters Date Type Department Care Team (Late st Contact Info) Description 12/23/2024 1:00 PM CDT Office Visit [facility] - GI [address] [place] [phone] Emerita Becker MD [address] [place] [address] 03/08/2025 9:30 AM FILM OR VIDEOTAPE EDITOR Testing Visit [facility] - ENT [address] [place] [phone] Hazel Franks AuD [address] [place] [address] 03/08/2025 10:00 AM FILM OR VIDEOTAPE EDITOR Office Visit [facility] - ENT [address] [place] [phone] Luis E Mccormick MD [address] [place] [address] [place] [address] documented as of this encounter Goals Goal Patient Goal Type Associated Problems Recent Progress Patient-Stated? Author Medication Management General On track( 025 10:04 AM CDT) Marilia Butler RN Note: Expected end date: ongoing Interventions: [...] Hx 11/25/2023 11/25/2023 ESBL GNR 08/31/2024 08/31/2024 CDIFF Under Investigation 09/01/2024 09/01/2024 1:11 PM CDT CDIFF Under Investigation 10/13/2024 10/13/2024 6:18 AM CDT documented as of this encounter Care Teams State Director Relationship Specialty Start Date End Date Roberto Monzon MD [address] [facility] [address] DIV OF [facility] [place] [address] PCP - General Internal Medicine 08/14/23 Roberto Monzon MD [address] [facility] [address] DIV OF [facility] [place] [address] PCP - Attributed-[facility] RENNY SWENSON P4P 03/05/24 Emerita Becker MD [address] [place] [phone] Gastroenterology 10/14/23 [place] [address] [place] [address] [address] [place] [address] Surgeon Trauma Surgery 10/14/23 documented as of this encounter
[2024-12-02] MEDS: SODIUM CHLORIDE 0.9% IV 1,000 ML 999 ML IV CONT ×2 (07:36)
--- NOTE | 2024-12-02 07:57 | ED.GENADULT ---
HPI - General Adult General Chief complaint: Weakness Stated complaint: weakness/lethargy Time Seen by Provider: 12/02/24 06:58 History of Present Illness HPI narrative: Patient is a 74-year-old female who presents to the ER for dehydration. Patient is on hospice due to advance Crohn's and fistulas. Patient is hypotensive and hypothermic. She is awake and can answer a couple questions but is clearly ill and confused. Patient is on hospice of [facility]. Related Data Home Medications ?Medication ?Instructions ?Recorded ?Confirmed ?Last Taken ?Type famotidine 20 mg tablet (Pepcid) 20 mg PO DAILY 11/10/20 03/18/23 03/18/23 History ferrous sulfate 325 mg (65 mg 325 mg PO BID 01/15/22 03/18/23 03/18/23 History iron) tablet,delayed release cyanocobalamin (vitamin B-12) 1,000 mcg PO DAILY 03/12/22 03/18/23 03/18/23 History 1,000 mcg capsule Allergies Allergy/AdvReac Type Severity Reaction Status Date / Time Penicillins Allergy Mild ITCH Verified 03/18/23 16:00 Review of Systems Review of Systems: ROS unobtainable: Yes unobtainable due to mental status PMFSH Past Medical History Medical History (Updated 12/02/24 @ 08:46 by Marlon Maddox MD) CVA (cerebral vascular accident) x2, w/ residual L hand deficit - loss of dexterity and has since regained complete (subjective) function. HENRRY (iron deficiency anemia) Gastroesophageal reflux disease Crohn's disease Osteoporosis Surgical History Surgical History History of appendectomy History of cholecystectomy History of ventral hernia repair History of bowel resection History of hysterectomy History of colonoscopy Family History Family History Mother Hypertension Father Hypertension Daughter Hypertension Sibling Hypertension Social History Social History Social History: The patient lives alone in an apartment. Currently receives help from her children and a non destructive evaluation specialist. She smokes perhaps 3 cigarettes a day. No alcohol or illicit substance abuse. She designates her daughters, Chloe Schwarz and Josephine Castañeda, as her surrogate decision makers. Code status: Full Code. Years smoked: 58 Smoking status: Current every day smoker Tobacco type: cigarettes Alcohol intake: unknown Substance use: never Substance use type: marijuana Lack of Transportation: No Lack of Food: Never True Current Housing: I Have Housing Concerned About Future Housing: No Difficulty Paying Gas/Electric Bills: No Difficulty Paying for Meds: No Currently Unemployed: No Education: Decline to Answer Difficulty w/ Childcare or Family Care: No Living arrangements: with family Spiritual care concerns: No Exam Narrative: GENERAL: Ill-appearing, frail, and in no acute distress. HEAD: Normocephalic, atraumatic. EYES: PERRL and EOMI. ENT: Dry mucous membranes. CHEST: Clear to auscultation. No respiratory distress. HEART: Regular rate and rhythm. Normal peripheral pulses. ABDOMEN: Soft, mild tenderness in the mid abdomen where she has large bandage is in place, nondistended. EXTREMITIES: Normal range of motion. No edema. SKIN: Warm, dry, no rash. Poor skin turgor. NEURO: Alert and oriented x2. PSYCH: Normal mood and affect. Course Course Emergency Course: 0715: I have called the patient's daughter Chloe who is POA. She would like mom to receive some IV fluid. We have discussed the seriousness of her illness the daughter is well aware that her mother is not going to improve. She does not want blood work performed. She is aware that due to the patient's condition she is not can not for any surgery or advanced treatments. The goal for care here is some hydration and comfort. 0757: Patient's heart rate has suddenly become bradycardic, she is not responding to noxious stimuli. Patient's daughter contacted informed that she is actively dying that she needs come to the ER. She reports she is walking out the door now. 0800: Patient pronounced as at 8:00 am. Asystole on the monitor. No palpable pulses. No purposeful movement. 0815: At bedside with patients daughter, discussed patient course and condolences delivered. 0843: [employer] Supervisor declined case, hospice doc will sign certificate. Vital Signs Vital signs: Vital Signs Temperature 95.3 F L 12/02/24 06:51 Pulse Rate 113 H 12/02/24 06:51 Respiratory Rate 23 H 12/02/24 06:51 Blood Pressure 57/48 L 12/02/24 06:51 Pulse Oximetry 91 12/02/24 06:51 Oxygen Delivery Room Air 12/02/24 06:51 Temperature 95.3 F L 12/02/24 06:51 Pulse Rate 71 12/02/24 07:51 Respiratory Rate 15 12/02/24 07:51 Blood Pressure 99/58 L 12/02/24 07:11 Pulse Oximetry 100 12/02/24 07:01 Oxygen Delivery Room Air 12/02/24 06:51 Medical Decision Making Vital Signs Vital Signs: Vital Signs Temperature 95.3 F L 12/02/24 06:51 Pulse Rate 113 H 12/02/24 06:51 Respiratory Rate 23 H 12/02/24 06:51 Blood Pressure 57/48 L 12/02/24 06:51 Pulse Oximetry 91 12/02/24 06:51 Oxygen Delivery Room Air 12/02/24 06:51 Temperature 95.3 F L 12/02/24 06:51 Pulse Rate 71 12/02/24 07:51 Respiratory Rate 15 12/02/24 07:51 Blood Pressure 99/58 L 12/02/24 07:11 Pulse Oximetry 100 12/02/24 07:01 Oxygen Delivery Room Air 12/02/24 06:51 Discharge Plan Discharge Clinical Impression: Crohn's disease of colon with fistula, Cardiopulmonary arrest Patient Disposition: Condition: Patient Language: Nicarag[place] Prescriptions: No Action cyanocobalamin (vitamin B-12) 1,000 mcg capsule 1,000 mcg PO DAILY ferrous sulfate 325 mg (65 mg iron) Tablet,Delayed Release (Dr/Ec) 325 mg PO BID prednisone 20 mg Tablet 40 mg PO DAILY@0800 Qty: 30 0RF metronidazole 500 mg tablet 500 mg PO Q8H 14 Days Qty: 42 0RF famotidine [Pepcid] 20 mg Tablet 20 mg PO DAILY tizanidine 2 mg capsule 2 mg PO Q8H PRN (Reason: muscle spasticity) Qty: 14 0RF ibuprofen 400 mg tablet 400 mg PO TID Qty: 20 0RF dicyclomine 20 mg tablet 20 mg PO QID Qty: 20 0RF Humira(CF) Pen 80 mg/0.8 mL pen injector kit See Rx Instructions subcut .COMPLEX Qty: 1 0RF Rx Instructions: inject two - 80 mg/0.8 mL pens on Day 1; inject one - 80 mg/0.8 mL pen on Day 15 of therapy subcut Humira(CF) Pen 40 mg/0.4 mL pen injector kit See Rx Instructions subcut .COMPLEX Qty: 2 11RF Rx Instructions: inject one - 40 mg/0.4 mL pen every 2 weeks subcut Follow-up/Referrals: UNKNOWN,DOCTOR [Primary Care Provider] -
--- NOTE | 2024-12-02 08:04 | PC.NURSE ---
0754 this RN noticed patient's HR dropped to 38 and went to patient's room to check on her. Patient was agonal breathing and bradycardic. Provider at bedside to evaluate patient. Patient quickly became asystole. Patient was on hospice and a DNR. Patient time of pronounced at [address] Maddox.
--- NOTE | 2024-12-02 10:06 | PC.NURSE ---
home contacted Verbal consent given by daughter over phone to release body
== END 2024-12-02 11:50 | disposition expired ==
PROVIDERS: Emergency Provider Emergency Medicine
DX: K50.913 Crohn's disease, unspecified, with fistula (principal); K21.9 Gastro-esophageal reflux disease without esophagitis; D50.9 Iron deficiency anemia, unspecified; M81.0 Age-related osteoporosis without current pathological fracture; F17.210 Nicotine dependence, cigarettes, uncomplicated; Z86.73 Personal history of transient ischemic attack (TIA), and cerebral infarction without residual deficits; Z90.49 Acquired absence of other specified parts of digestive tract; Z90.710 Acquired absence of both cervix and uterus; Z79.620 Long term (current) use of immunosuppressive biologic
CPT/HCPCS: 96360; 99284; J7030